=== PATIENT | female | born 1980 | race Caucasian/White ===

== ENCOUNTER 2017-10-22 11:24 | Emergency (ER) | payer OTHER, BC, SELFPAY ==
[2017-10-22 11:25] VITALS: BP 133/87; PULSE 70; RESP 16; TEMP 36.7; O2SAT 100; BMI 30.3
--- NOTE | 2017-10-22 11:27 | RAD_ITS ---
STUDY: X-RAY - RIGHT KNEE REASON FOR EXAM: Female, 37 years old. Pain after a fall TECHNIQUE: 2 view(s) of the knee. COMPARISON: None. FINDINGS: Normal visualized distal femur. Normal visualized proximal tibia and fibula. Normal proximal tibiofibular articulation. Normal medial femorotibial compartment. Normal lateral femorotibial compartment. Normal patellofemoral articulation. The soft tissue structures are unremarkable. RAD/Knee 1 or 2 Views IMPRESSION: Normal x-ray examination of the knee. Electronically Signed: Sharad Weems MD at 11:57 EDT , Service support ,
--- NOTE | 2017-10-22 11:27 | RAD_ITS ---
STUDY: X-RAY - RIGHT WRIST REASON FOR EXAM: Female, 37 years old. Pain after a fall TECHNIQUE: 3 view(s) of the wrist were obtained. COMPARISON: None. FINDINGS: Normal visualized distal radius and ulna. Normal radiocarpal articulation. Normal distal radioulnar articulation. Normal carpal bones. Normal carpal articulations. Normal carpometacarpal articulation of the thumb. Normal second through fifth carpometacarpal articulations. Normal visualized metacarpal bones. The soft tissue structures are unremarkable. RAD/Wrist min 3 Views IMPRESSION: Normal x-ray examination of the wrist. Electronically Signed: Sharad Weems MD at 11:57 EDT , Service support ,
--- NOTE | 2017-10-22 12:11 | ED.DCSUM_ITS ---
- ER Visit Summary Date of Service: 10/22/17 Chief Complaint: Fall History of Present Illness: The patient is a 37 F and a walker when she believes she tripped and fell. She landed on her right knee and her outstretched right palm. She has pain over the thenar eminence of the knee. She has been able to ambulate. She has been able to use the hand fairly normally just was she denies any other injuries Physical Examination: Afebrile vital signs are stable Tender palpation over the thenar eminence of the right hand. She has pain the right patella. Test Results: Wrist and knee were negative for fracture Emergency Department Course and Treatment: Discharged home with supportive care follow-up with corporate care as needed Impression: 1. Right wrist contusion 2. Right knee contusion This note was generated with PowerVision dictation software. It may contain incorrect words, spelling, and punctuation that were not noted in review of the chart prior to signing ED Disposition - Plan for ED Patient: Disposition: Home or Assisted Living Chief Complaint: Upper Extremity Injury Instructions: ED Contusion Lower Ext, ED Contusion Upper Ext Referrals: Care Physician,No Primary [Primary Care Provider] - Corporate,Care [GROUP OF PHYSICIANS] - As Needed
[2017-10-22 12:22] VITALS: BP 130/70; PULSE 75; RESP 14; O2SAT 99
== END 2017-10-22 12:30 | disposition home or self-care (01) ==
LOC: ED 12:20
PROVIDERS: Emergency Provider Emergency Medicine
DX: S60.211A Contusion of right wrist, initial encounter (principal); S80.01XA Contusion of right knee, initial encounter; W01.0XXA Fall on same level from slipping, tripping and stumbling without subsequent striking against object, initial encounter; Y93.9 Activity, unspecified; Y92.89 Other specified places as the place of occurrence of the external cause; Y99.9 Unspecified external cause status
CPT/HCPCS: 73110; 73560; 99282

== ENCOUNTER → 2018-01-29 16:25 | Outpatient (CLI) | payer BC, SELFPAY ==
[2018-01-29 17:48] LABS: Free T3 2.3 pg/mL (2.18-3.98); T4 Free Direct 0.67 ng/dL (0.76-1.46)
== END ==
PROVIDERS: Visit Provider Nurse Practitioner
DX: E07.9 Disorder of thyroid, unspecified (principal)
CPT/HCPCS: 36415; 84439; 84443; 84481

== ENCOUNTER → 2018-04-12 12:08 | Outpatient (CLI) | payer BC, SELFPAY ==
[2018-04-12 13:19] LABS: Thyroid Stim Hormone (TSH) 4.35 uIU/mL (0.358-3.74)
== END ==
PROVIDERS: Visit Provider Nurse Practitioner
DX: E03.9 Hypothyroidism, unspecified (principal)
CPT/HCPCS: 36415; 84443

== ENCOUNTER → 2018-04-19 13:06 | Outpatient (CLI) | payer OTHER, SELFPAY ==
--- NOTE | 2018-04-19 13:09 | RAD_ITS ---
STUDY: X-RAY - LUMBAR SPINE REASON FOR EXAM: Female, 38 years old. Low back pain following injury. TECHNIQUE: 4 view(s) of the lumbar spine were obtained including oblique views. COMPARISON: None FINDINGS: Normal lumbar lordosis. There is no substantial scoliosis. There is a normal alignment of the vertebrae. Normal vertebral bodies and endplates. Normal disc space heights. The soft tissue structures are unremarkable. RAD/L/S Spine Min 4 Views IMPRESSION: Normal x-ray examination of the lumbar spine. Electronically Signed: Richar Wolf MD at 13:59 EDT Tel [phone], Service support ,
== END ==
PROVIDERS: Visit Provider Physician Assistant Surgical
DX: S39.012A Strain of muscle, fascia and tendon of lower back, initial encounter (principal)
CPT/HCPCS: 72110

== ENCOUNTER → 2018-05-31 09:30 | Outpatient (CLI) | payer BC, SELFPAY ==
[2018-05-31 12:01] LABS: Free T3 2.6 pg/mL (2.18-3.98); T4 Free Direct 1.04 ng/dL (0.76-1.46); Thyroid Stim Hormone (TSH) 2.88 uIU/mL (0.358-3.74)
== END ==
PROVIDERS: Referring Provider Nurse Practitioner; Visit Provider Nurse Practitioner
DX: E03.9 Hypothyroidism, unspecified (principal)
CPT/HCPCS: 36415; 84439; 84443; 84481

== ENCOUNTER → 2018-07-17 17:54 | Outpatient (CLI) | payer BC, SELFPAY ==
[2018-07-17 09:05] VITALS: BMI 30.8
[2018-07-22 12:36] LABS: HPV APTIMA, High Risk Negative (Negative)
== END ==
PROVIDERS: Referring Provider Nurse Practitioner Women's Health; Visit Provider Nurse Practitioner Women's Health
DX: Z12.4 Encounter for screening for malignant neoplasm of cervix (principal)
CPT/HCPCS: 87624; 88175; G0145

== ENCOUNTER → 2019-02-21 13:39 | Outpatient (CLI) | payer BC, SELFPAY ==
[2018-07-17 09:05] VITALS: BMI 30.8
[2019-02-21 15:41] LABS: T4 Free Direct 0.86 ng/dL (0.76-1.46); Thyroid Stim Hormone (TSH) 4.81 uIU/mL (0.358-3.74)
== END ==
PROVIDERS: Referring Provider Nurse Practitioner; Visit Provider Nurse Practitioner
DX: E03.9 Hypothyroidism, unspecified (principal)
CPT/HCPCS: 36415; 84439; 84443

== ENCOUNTER → 2019-03-03 15:24 | Outpatient (CLI) | payer BC, SELFPAY ==
[2018-07-17 09:05] VITALS: BMI 30.8
--- NOTE | 2019-03-03 15:29 | US_ITS ---
STUDY: THYROID ULTRASOUND REASON FOR EXAM: Female, 39 years old. Thyroid nodule. Hypothyroidism. TECHNIQUE: Ultrasound evaluation of the thyroid was performed with real-time and static singleton-scale imaging. COMPARISON: None. FINDINGS: RIGHT LOBE: The right lobe of the thyroid gland measures 4.3 x 1.7 x 1.5 cm. There is a heterogeneous echotexture. There are no demonstrated solid, cystic or complex lesions. LEFT LOBE: The left lobe of the thyroid gland measures 4.3 x 1.7 x 1.5 cm. There is a heterogeneous echotexture. There is a 0.4 x 0.3 x 0.2 cm cystic nodule in the lower pole of the left lobe. ISTHMUS: The isthmus measures 0.3 cm. The regional lymph nodes are normal. US/Thyroid IMPRESSION: Heterogeneous thyroid. Subcentimeter cystic nodule in the left lobe. Electronically Signed: Karlos eLahy, at 14:49 EDT Tel , Service support ,
== END ==
PROVIDERS: Referring Provider Nurse Practitioner; Visit Provider Nurse Practitioner
DX: E03.9 Hypothyroidism, unspecified (principal)
CPT/HCPCS: 76536

== ENCOUNTER 2020-04-09 10:09 | Outpatient (RCR) | payer BC, SELFPAY ==
[2020-02-23 09:02] VITALS: BMI 30.8
== END 2020-04-28 23:59 ==
LOC: EMPH 10:09
PROVIDERS: Referring Provider Family Medicine Geriatric Medicine; Visit Provider Family Medicine Geriatric Medicine
DX: Z11.59 Encounter for screening for other viral diseases (principal)
CPT/HCPCS: 87635; U0003

== ENCOUNTER → 2020-05-01 07:26 | Outpatient (CLI) | payer BC, SELFPAY ==
[2020-02-23 09:02] VITALS: BMI 30.8
[2020-05-01 08:27] LABS: T4 Free Direct 0.93 ng/dL (0.76-1.46); Thyroid Stim Hormone (TSH) 5.55 uIU/mL (0.358-3.74)
[2020-05-05 09:39] LABS: Vitamin B12 602 pg/mL (211-911)
== END ==
PROVIDERS: Referring Provider Internal Medicine Endocrinology, Diabetes & Metabolism; Visit Provider Internal Medicine Endocrinology, Diabetes & Metabolism
DX: E03.8 Other specified hypothyroidism (principal); E06.3 Autoimmune thyroiditis; Z78.9 Other specified health status
CPT/HCPCS: 36415; 82607; 84439; 84443

== ENCOUNTER 2020-05-27 17:00 | Outpatient (RCR) | payer BC, SELFPAY ==
[2020-02-23 09:02] VITALS: BMI 30.8
== END 2020-05-29 23:59 ==
LOC: EMPH 17:00
PROVIDERS: Referring Provider Family Medicine Geriatric Medicine; Visit Provider Family Medicine Geriatric Medicine
DX: Z03.818 Encounter for observation for suspected exposure to other biological agents ruled out (principal)
CPT/HCPCS: 87426

== ENCOUNTER → 2020-05-27 18:00 | Outpatient (CLI) | payer BC, SELFPAY ==
[2020-02-23 09:02] VITALS: BMI 30.8
== END ==
PROVIDERS: Visit Provider Family Medicine Geriatric Medicine
DX: Z03.818 Encounter for observation for suspected exposure to other biological agents ruled out (principal)
CPT/HCPCS: 87426

== ENCOUNTER 2020-06-23 13:37 | Outpatient (RCR) | payer BC, SELFPAY ==
[2020-02-23 09:02] VITALS: BMI 30.8
== END 2020-06-28 23:59 ==
LOC: EMPH 13:37
PROVIDERS: Referring Provider Family Medicine Geriatric Medicine; Visit Provider Family Medicine Geriatric Medicine
DX: Z03.818 Encounter for observation for suspected exposure to other biological agents ruled out (principal)
CPT/HCPCS: 87426

== ENCOUNTER 2020-07-21 16:08 | Outpatient (RCR) | payer BC, SELFPAY ==
[2020-02-23 09:02] VITALS: BMI 30.8
== END 2020-07-29 23:59 ==
LOC: EMPH 16:08
PROVIDERS: Referring Provider Family Medicine Geriatric Medicine; Visit Provider Family Medicine Geriatric Medicine
DX: Z03.818 Encounter for observation for suspected exposure to other biological agents ruled out (principal)
CPT/HCPCS: 87426

== ENCOUNTER 2020-08-27 14:15 | Outpatient (RCR) | payer BC, SELFPAY ==
[2020-02-23 09:02] VITALS: BMI 30.8
[2020-08-03 15:13] VITALS: BMI 34.3
== END 2020-08-29 23:59 ==
LOC: EMPH 14:15
PROVIDERS: Referring Provider Family Medicine Geriatric Medicine; Visit Provider Family Medicine Geriatric Medicine
DX: Z03.818 Encounter for observation for suspected exposure to other biological agents ruled out (principal)
CPT/HCPCS: 87426

== ENCOUNTER 2020-11-19 09:19 | Outpatient (RCR) | payer BC, SELFPAY ==
[2020-08-03 15:13] VITALS: BMI 34.3
== END 2020-11-26 23:59 ==
LOC: EMPH 09:19
PROVIDERS: Referring Provider Family Medicine Geriatric Medicine; Visit Provider Family Medicine Geriatric Medicine
DX: Z03.818 Encounter for observation for suspected exposure to other biological agents ruled out (principal)
CPT/HCPCS: 87426

== ENCOUNTER 2020-12-24 08:48 | Outpatient (RCR) | payer BC, SELFPAY ==
[2020-08-03 15:13] VITALS: BMI 34.3
== END 2020-12-27 23:59 ==
LOC: EMPH 08:48
PROVIDERS: Referring Provider Family Medicine Geriatric Medicine; Visit Provider Family Medicine Geriatric Medicine
DX: Z03.818 Encounter for observation for suspected exposure to other biological agents ruled out (principal)
CPT/HCPCS: 87426

== ENCOUNTER → 2021-01-10 10:02 | Outpatient (CLI) | payer BC, SELFPAY ==
[2020-08-03 15:13] VITALS: BMI 34.3
[2021-01-10 11:20] LABS: T4 Free Direct 1.02 ng/dL (0.76-1.46); Thyroid Stim Hormone (TSH) 4.13 uIU/mL (0.358-3.74)
== END ==
PROVIDERS: Referring Provider Internal Medicine Endocrinology, Diabetes & Metabolism; Visit Provider Internal Medicine Endocrinology, Diabetes & Metabolism
DX: E03.8 Other specified hypothyroidism (principal); E06.3 Autoimmune thyroiditis
CPT/HCPCS: 36415; 84439; 84443

== ENCOUNTER → 2021-03-19 07:43 | Outpatient (CLI) | payer BC, SELFPAY ==
[2021-03-19 08:37] LABS: T4 Free Direct 1.11 ng/dL (0.76-1.46); Thyroid Stim Hormone (TSH) 1.34 uIU/mL (0.358-3.74)
== END ==
PROVIDERS: PCP Internal Medicine; Visit Provider Physician Assistant
DX: E03.8 Other specified hypothyroidism (principal); E06.3 Autoimmune thyroiditis
CPT/HCPCS: 36415; 84439; 84443

== ENCOUNTER → 2021-03-23 14:39 | Outpatient (CLI) | payer BC, SELFPAY ==
[2021-03-23 17:02] LABS: Absolute Lymphocyte Count 1.72 X10^3/uL (0.83-4.51); Absolute Neutrophil Count 3.1 X10^3/uL (2.0-7.7); Basophil# 0.04 X10^3/uL; Basophil% 0.7 % (0-1); Eosinophil# 0.52 X10^3/uL; Hematocrit 40.9 % (37-47); Hemoglobin 13.2 g/dL (12.0-15.0); Lymphocyte # 1.72 X10^3/ul (0.83-4.51); Lymphocyte % 29.7 % (19-41); Mean Corp Hgb Conc 32.3 g/dL (32-36); Mean Corpuscular Hgb 29.5 pg (27.0-32.0); Mean Corpuscular Volume 91.5 fL (81-99); Monocyte# 0.45 X10^3/uL; Monocyte% 7.8 % (0-10); NRBC Flagged by Analyzer 0 % (0-5); Neutrophil # 3.06 X10^3/uL (2.7-7.7); Neutrophil % 52.6 % (47-70); Platelet Count 242 K/mm3 (150-450); RBC Distribution Width SD 40.1 fl (35.1-43.9); Red Blood Count 4.47 M/mm3 (4.2-5.4); White Blood Count 5.8 K/mm3 (4.4-11.0)
[2021-03-23 17:17] LABS: ALB/GLOB Ratio 1.4 RATIO (0.9-2.4); AST(SGOT) 14 U/L (15-37); Alanine Aminotransfer ALT/SGPT 24 U/L (13-56); Albumin, Serum 4.1 g/dL (3.2-5.0); Alkaline Phosphatase 93 U/L (45-117); Anion Gap 5 (5-15); BUN 9 mg/dL (7-18); BUN/Creat Ratio 13.9 RATIO (10-20); Calcium,Total 9.1 mg/dL (8.5-10.1); Chloride 105 mmol/L (98-107); Creatinine, Serum 0.65 mg/dL (0.55-1.02); EST Glomerular Filtration Rate 109 mL/min (>60); Est Glom Filt Rate - Afr Amer 131 mL/min (>60); Glucose 95 mg/dL (74-106); Potassium 3.5 mmol/L (3.5-5.1); Protein, Total 7.1 g/dL (6.4-8.2); Sodium Level 140 mmol/L (136-145)
[2021-03-23 17:21] LABS: Vitamin B12 640 pg/mL (211-911)
== END ==
PROVIDERS: PCP Internal Medicine; Referring Provider Internal Medicine; Visit Provider Internal Medicine
DX: F41.9 Anxiety disorder, unspecified (principal); F32.9 Major depressive disorder, single episode, unspecified
CPT/HCPCS: 36415; 80053; 82607; 85025

== ENCOUNTER 2021-03-29 16:45 | Outpatient (RCR) | payer BC, SELFPAY | END 2021-03-29 17:00 | disposition home or self-care (01) | LOC: EMPH 16:45 | PROVIDERS: PCP Internal Medicine; Visit Provider Family Medicine Geriatric Medicine | DX: Z03.818 Encounter for observation for suspected exposure to other biological agents ruled out (principal) | CPT/HCPCS: 87426 ==

== ENCOUNTER 2021-08-29 08:40 | Outpatient (RCR) | payer BC, SELFPAY | END 2021-08-29 23:59 | LOC: EMPH 08:40 | PROVIDERS: PCP Internal Medicine; Visit Provider Family Medicine Geriatric Medicine | DX: Z03.818 Encounter for observation for suspected exposure to other biological agents ruled out (principal) | CPT/HCPCS: 87426 ==

== ENCOUNTER 2021-09-12 14:43 | Outpatient (RCR) | payer BC, SELFPAY | END 2021-09-26 23:59 | disposition home or self-care (01) | LOC: EMPH 14:43 | PROVIDERS: PCP Internal Medicine; Visit Provider Family Medicine Geriatric Medicine | DX: Z03.818 Encounter for observation for suspected exposure to other biological agents ruled out (principal) | CPT/HCPCS: 87426 ==

== ENCOUNTER → 2021-11-17 | Outpatient (CLI) | payer BC, SELFPAY | END | disposition home or self-care (01) | LOC: LABSPEC 11-18 06:44 | PROVIDERS: PCP Internal Medicine; Referring Provider Obstetrics & Gynecology; Visit Provider Obstetrics & Gynecology | DX: N76.4 Abscess of vulva (principal) | CPT/HCPCS: 87070; 87077; 87186; 87205 ==

== ENCOUNTER → 2022-01-12 | Outpatient (CLI) | payer BC, SELFPAY ==
[2022-01-12 16:58] LABS: Thyroid Stim Hormone (TSH) 1.51 uIU/mL (0.358-3.74)
== END | disposition home or self-care (01) ==
LOC: BIMLAB 15:05
PROVIDERS: PCP Internal Medicine; Referring Provider Internal Medicine Endocrinology, Diabetes & Metabolism; Visit Provider Internal Medicine Endocrinology, Diabetes & Metabolism
DX: E03.8 Other specified hypothyroidism (principal); E06.3 Autoimmune thyroiditis
CPT/HCPCS: 36415; 84439; 84443

== ENCOUNTER → 2022-08-17 | Outpatient (CLI) | payer BC, SELFPAY ==
[2022-08-22 22:08] LABS: HPV APTIMA, High Risk Negative (Negative)
== END | disposition home or self-care (01) ==
LOC: LABSPEC 14:26
PROVIDERS: PCP Internal Medicine; Visit Provider Obstetrics & Gynecology
DX: Z12.4 Encounter for screening for malignant neoplasm of cervix (principal)
CPT/HCPCS: 87624; 88175; G0145

== ENCOUNTER → 2022-12-04 | Outpatient (CLI) | payer BC, SELFPAY ==
--- NOTE | 2022-12-04 14:38 | BI_ITS ---
MAMMOGRAPHY - BILATERAL SCREENING REASON FOR EXAM: Female, 42 years old. Routine annual screening examination. PERTINENT HISTORY: Non-contributory. TECHNIQUE: Digital bilateral breast abida (3D mammographic acquisition) in the CC and MLO projections. 2-D mediolateral oblique (MLO) and craniocaudad (CC) views of both breasts were obtained. CAD: Full Field Digital Mammography with Computer Added Detection was performed. COMPARISON: None. Baseline examination. FINDINGS: Breast Composition: There are scattered areas of fibroglandular density. There are no dominant masses or suspicious calcifications. No other significant abnormalities are identified. BI/SCRN MAMM (CAD)W/ABIDA BILAT IMPRESSION: Negative screening mammogram. Yearly followup mammogram recommended. (A) ASSESSMENT CATEGORY: BIRADS Category 1: Negative. A letter regarding these results will be sent to the patient by the facility within 30 days. Approximately 10% of breast cancers are not detected by mammography. A normal mammogram should not delay biopsy of a clinically suspicious abnormality. [id number] Electronically Signed: Richar Wolf MD at 15:38 EDT ,
== END | disposition home or self-care (01) ==
LOC: OPBI 14:36
PROVIDERS: PCP Internal Medicine; Referring Provider Obstetrics & Gynecology; Visit Provider Obstetrics & Gynecology
DX: Z12.31 Encounter for screening mammogram for malignant neoplasm of breast (principal)
CPT/HCPCS: 77063; 77067

== ENCOUNTER → 2023-01-04 | Outpatient (CLI) | payer BC, SELFPAY ==
[2023-01-04 12:29] LABS: Absolute Lymphocyte Count 1.36 X10^3/uL (0.83-4.51); Absolute Neutrophil Count 1.9 X10^3/uL (2.0-7.7); Basophil# 0.04 X10^3/uL; Eosinophil# 0.44 X10^3/uL; Eosinophils% 10.7 % (0-5); Hematocrit 43.4 % (37-47); Hemoglobin 13.7 g/dL (12.0-15.0); Lymphocyte # 1.36 X10^3/ul (0.83-4.51); Lymphocyte % 32.9 % (19-41); Mean Corp Hgb Conc 31.6 g/dL (32-36); Mean Corpuscular Hgb 29.6 pg (27.0-32.0); Mean Corpuscular Volume 93.7 fL (81-99); Mean Platelet Vol. 12.2 fl (6.2-12.0); Monocyte# 0.34 X10^3/uL; Monocyte% 8.2 % (0-10); NRBC Flagged by Analyzer 0 % (0-5); Neutrophil # 1.94 X10^3/uL (2.7-7.7); Platelet Count 240 K/mm3 (150-450); RBC Distribution Width CV 12.3 % (11.6-14.6); RBC Distribution Width SD 42.5 fl (35.1-43.9); Red Blood Count 4.63 M/mm3 (4.2-5.4); White Blood Count 4.1 K/mm3 (4.4-11.0)
[2023-01-04 12:54] LABS: Vitamin B12 451 pg/mL (211-911)
[2023-01-04 13:11] LABS: ALB/GLOB Ratio 1.2 RATIO (0.9-2.4); AST(SGOT) 17 U/L (15-37); Alanine Aminotransfer ALT/SGPT 20 U/L (13-56); Alkaline Phosphatase 96 U/L (45-117); Anion Gap 6 (5-15); BUN 8 mg/dL (7-18); BUN/Creat Ratio 10.5 RATIO (10-20); Calcium,Total 9.4 mg/dL (8.5-10.1); Chloride 108 mmol/L (98-107); Cholesterol 224 mg/dL (200); Creatinine, Serum 0.76 mg/dL (0.55-1.02); EST Glomerular Filtration Rate 89 mL/min (>60); Est Glom Filt Rate - Afr Amer 108 mL/min (>60); Globulin 3.2 g/dL (2.2-4.2); Glucose 108 mg/dL (74-106); High Density Lipoprotein 53 mg/dL; Potassium 4.3 mmol/L (3.5-5.1); Protein, Total 7.2 g/dL (6.4-8.2); Sodium Level 140 mmol/L (136-145); T4 Free Direct 0.83 ng/dL (0.76-1.46); Thyroid Stim Hormone (TSH) 9.83 uIU/mL (0.358-3.74); Triglycerides 118 mg/dL; Very Low Density Lipoprotein 24 mg/dL (5-40)
== END | disposition home or self-care (01) ==
LOC: BIMLAB 09:31
PROVIDERS: PCP Internal Medicine; Visit Provider Internal Medicine Endocrinology, Diabetes & Metabolism
DX: E03.8 Other specified hypothyroidism (principal); E06.3 Autoimmune thyroiditis; R20.2 Paresthesia of skin
CPT/HCPCS: 36415; 80053; 80061; 82607; 84439; 84443; 85025

== ENCOUNTER → 2023-04-12 | Outpatient (CLI) | payer BC, SELFPAY ==
[2023-04-12 14:40] LABS: T4 Free Direct 1.09 ng/dL (0.76-1.46); Thyroid Stim Hormone (TSH) 0.34 uIU/mL (0.358-3.74)
== END | disposition home or self-care (01) ==
LOC: LAB 12:01
PROVIDERS: PCP Internal Medicine; Referring Provider Internal Medicine Endocrinology, Diabetes & Metabolism; Visit Provider Internal Medicine Endocrinology, Diabetes & Metabolism
DX: E03.8 Other specified hypothyroidism (principal); E06.3 Autoimmune thyroiditis
CPT/HCPCS: 36415; 84439; 84443

== ENCOUNTER 2023-07-27 16:06 | Emergency (ER) | payer BC, SELFPAY ==
[2023-07-27 16:07] VITALS: BP 141/99; PULSE 78; RESP 14; TEMP 36.8; O2SAT 99; BMI 36.1
--- NOTE | 2023-07-27 16:36 | EDS_ITS ---
HPI History of Present Illness Chief Complaint: Back Informant: patient Narrative Narrative: Patient fell while rollerskating injuring her back and potentially her left shoulder. She states her son fell in front of her and she was trying to avoid him, her skate got caught in the clothing of her son, and then she hyperextended at her back as she was falling, feeling a crack and immediate severe pain, and she states that she thinks her left upper extremity was extended up in the air and then hyperextended back while in that position. She states her shoulder is not really hurting anymore but her back is really burning from the lower thoracic radiating up to the thoracic back in the middle. She has no neck or low back tenderness. She has no numbness radiating around anywhere or into any extremities. She denies having any problems walking, no bowel or bladder dysfunction. She states the back seems to feel worse when she takes a very deep breath but she denies any dyspnea or chest discomfort. [facility] Medical History Angioedema Anxiety Anxiety and depression Autoimmune urticaria Chronic headaches Depression Depression Food allergic skin reaction Hives Hypothyroidism Seasonal allergies Home Medications levothyroxine 112 mcg tablet 112 mcg PO DAILY #90 tabs 01/04/23 [Rx Last Taken Unknown] orphenadrine citrate 100 mg tablet,extended release 100 mg PO Q12H PRN muscle pain #14 tabs 07/27/23 [Rx Last Taken Unknown] tramadol 50 mg tablet 50 mg PO Q6H PRN pain 3 days #12 tabs 07/27/23 [Rx Last Taken Unknown] Allergy/AdvReac Type Severity Reaction Status Date / Time amoxicillin [From Augmentin] Allergy Hives/ Verified 07/27/23 16:07 DIARRHEA clavulanic acid Allergy Hives Verified 07/27/23 16:07 [From Augmentin] sulfamethoxazole Allergy Hives Verified 07/27/23 16:07 [From Bactrim] trimethoprim [From Bactrim] Allergy Hives Verified 07/27/23 16:07 Family History Mother Addisons disease Osteoporosis Hypertension Father Hypertension Grandfather Colon cancer Other Adrenal abnormality CVA (cerebral vascular accident) Cancer Thyroid disorder Social History number of children: 2 current occupational status: employed current occupation: [employer] Smoking Status: Never smoker second hand exposure: No alcohol intake: current alcohol intake frequency: holidays/special occasions only substance use type: does not use what type of physical activity do you participate in: none seatbelt use: always do you feel safe at home: Yes additional social history: Catalino MALDONADO ROS ROS ED Constitutional Constitutional ED: Denies chills or fever(s) Eyes Eyes: Denies change in vision or diplopia ENT ENT ED: Denies ear pain, epistaxis, facial pain or rhinorrhea Cardiovascular Cardiovascular: Denies chest pain or palpitations Respiratory/Chest Respiratory/Chest: Denies cough or dyspnea Gastrointestinal Gastrointestinal: Denies abdominal pain, diarrhea, melena, nausea or vomiting Genitourinary Genitourinary ED: Denies dysuria or hematuria Musculoskeletal Musculoskeletal: Reports back pain and extremity pain; Denies neck pain Integumentary Denies abscess, Abrasions, laceration or rash Neurologic Neurologic: Denies confusion, headache(s), paresthesias or weakness EXAM Physical Exam Const Vital Signs: 07/27/23 16:07 Temperature 98.3 F Temperature Source Temporal Pulse Rate 78 Respiratory Rate 14 Blood Pressure 141/99 H Blood Pressure Mean 113 Pulse Ox 99 Oxygen Delivery Method Room Air Positive well nourished and well developed General Appearance ED: well developed and NAD HEENT Reports nasal mucous membranes and turbinates normal atraumatic Face and Sinus: Negative for facial tenderness Eyes PERRL and EOMs intact bilaterally Neck full ROM and supple General: Negative for tenderness Chest Wall inspection of chest normal and palpation of chest normal Chest: symmetrical chest wall rise; Negative for crepitus or tenderness Resp normal respiratory effort and clear to auscultation bilaterally Resp Narrative: Equal breath sounds bilaterally Percussion: other equal BS bilat Cardio no murmurs Rate: regular rate; Negative for tachycardic Rhythm: regular rhythm GI normal to inspection, nondistended, normoactive bowel sounds, soft to palpation and non-tender Back/Spine Back/Spine Narrative: Normal on inspection. No reproducible tenderness. Patient indicates pain starts at about the T11-12 area and radiates up to about the T3-5 area. There is no rib tenderness throughout the back. There is no splinting with deep inspiration. She has very limited range of motion, exam is performed while the patient is standing, she is apprehensive about moving about the thoracic spine. Cervical Spine: Negative for cervical spine tenderness Thoracic Spine / Upper Back: Negative for thoracic spinal tenderness Lumbar Spine / Lower Back: Negative for lumbar spinal tenderness Extremity normal to inspection and full ROM General Extremety ED: Negative for tenderness Neuro oriented x3, CN's II-XII intact bilaterally, moves all extremities, no focal motor deficits and no sensory deficits noted Bluebell Coma Scale: document GCS findings Spontaneous Obeys Commands Oriented 15 Sensorium / Orientation: awake and alert Psych mental status grossly normal and thought process normal Mood & Affect: tearful Skin no wounds Lesions: no lesions Rashes: no rashes MDM MDM MDM Narrative Medical decision making narrative: Three-view x-ray series of the thoracic spine was obtained after patient was medicated with Toradol, on my interpretation there are no acute fractures or facet dislocations. Radiology was in agreement. Given the patient's severe symptoms, I thought it best to send her for a CT to ensure that there were no other bony explanations for her pain such as transverse process fracture, pedicle fracture, or acute disc space narrowing to suggest an acute disc rupture which is thought to be less likely since she has no neurologic symptoms. This was performed I reviewed the images and the report which I agree with, it is negative for acute bony abnormality. Patient was reassured, likely all myofascial strain. At her request she was given an injection of muscle relaxer Norflex, she said before this after the Toradol she was feeling funny the nurses gave her something to eat or drink and she felt better like maybe her blood sugar was a little low. She is tolerating the Norflex well so I will give her a prescription for that to use as needed as well as some tramadol after we discussed possibilities will be to prescribe her to use as needed at home. Also given a work note for Sunday. Radiography Diagnostic Testing: Clinical Impression(s) from Imaging Studies Thoracic Spine X-Ray 07/27/23 17:10 IMPRESSION: Degenerative changes. No acute osseous abnormalities. Electronically Signed: Adonis Santos DO at 17:41 EST , Thoracic Spine CT 07/27/23 17:31 IMPRESSION: No acute osseous abnormalities. Mild degenerative changes and spinal curvature as above. Electronically Signed: Adonis Weston MicheleDO cheri at 18:07 EST , Discharge Plan Triage Chief Complaint: Back ED Provider: Cortes Robert Dx/Rx/DC Orders Clinical Impression: Acute thoracic myofascial strain Instructions: ED Thoracic Spine Strain Prescriptions: New tramadol 50 mg tablet 50 mg PO Q6H PRN (Reason: pain) 3 Days Qty: 12 0RF orphenadrine citrate 100 mg tablet extended release 100 mg PO Q12H PRN (Reason: muscle pain) Qty: 14 0RF No Action levothyroxine 112 mcg tablet 112 mcg PO DAILY Qty: 90 3RF Stand Alone Forms: ED Work / School Excuse Primary Care Provider: Edgar Kaiser Referrals: Edgar Kaiser MD [Primary Care Provider] - 1 Week if not improving Activity Restrictions/Additional Instructions: May take both prescriptions along with Tylenol and/or ibuprofen if desired/needed. Ice pack or heat to the affected area, whichever feels better is okay to try. Disposition Disposition: Home, Self Care
[2023-07-27] MEDS: Ketorolac 60 MG/2 ML Vial IM (17:09)
--- NOTE | 2023-07-27 17:10 | RAD_ITS ---
EXAM: XR THORACIC SPINE, 2 VIEWS CLINICAL INDICATION: injury pain. TECHNIQUE: Frontal and lateral views of the thoracic spine. COMPARISON: Lumbar spine, 04/19/2018 FINDINGS: VERTEBRAE: Mild multilevel endplate osteophytosis and facet arthrosis. Subtle apex right superior thoracic curvature. Preserved vertebral body height. No fracture. No spondylolisthesis. DISC SPACES: Mild multilevel intervertebral disc height loss. RAD/Thoracic Spine 2 Views IMPRESSION: Degenerative changes. No acute osseous abnormalities. Electronically Signed: Adonis Santos DO at 17:41 EST ,
--- NOTE | 2023-07-27 17:31 | CT_ITS ---
EXAM: CT THORACIC SPINE WITHOUT INTRAVENOUS CONTRAST CLINICAL INDICATION: injury, nml XR TECHNIQUE: Helically acquired images were obtained of the thoracic spine without intravenous contrast. 2D reformats were reviewed. This CT exam was performed using one or more of the following dose reduction techniques: automated exposure control, adjustment of the mA and/or kV according to patient size, and/or use of iterative reconstruction technique. COMPARISON: Thoracic spine radiographs on the same date. FINDINGS: VERTEBRAE: Mild multilevel endplate osteophytosis and mild multilevel facet arthrosis. Subtle apex right superior and subtle apex left midthoracic spinal curvature. No discrete lytic or blastic abnormality. No acute fracture, spondylolysis, or spondylolisthesis. DISCS/SPINAL CANAL/NEURAL FORAMINA: Multilevel intervertebral disc height loss. VASCULATURE: Visualized thoracic aorta is not dilated. LYMPH NODES: No significant abnormality. No retroperitoneal adenopathy. LUNGS AND PLEURAL SPACES: Normal as visualized. No mass. No consolidation or edema. No pleural effusion or thickening. No pneumothorax. CT/Spine Thoracic without Contras IMPRESSION: No acute osseous abnormalities. Mild degenerative changes and spinal curvature as above. Electronically Signed: Adonis Santos DO at 18:07 EST ,
[2023-07-27] MEDS: Orphenadrine 60 MG/2 ML Ampul IM (17:34)
[2023-07-27 18:46] VITALS: RESP 18
== END 2023-07-27 19:05 | disposition home or self-care (01) ==
PROVIDERS: Emergency Provider Emergency Medicine; PCP Internal Medicine; Referring Provider Emergency Medicine; Visit Provider Emergency Medicine
DX: S29.019A Strain of muscle and tendon of unspecified wall of thorax, initial encounter (principal); Y93.51 Activity, roller skating (inline) and skateboarding; E03.9 Hypothyroidism, unspecified; Z79.899 Other long term (current) drug therapy; W03.XXXA Other fall on same level due to collision with another person, initial encounter
CPT/HCPCS: 72070; 72128; 96372; 99283

== ENCOUNTER → 2023-08-20 | Outpatient (CLI) | payer BC, SELFPAY ==
[2023-08-20 12:56] LABS: T3 Total - Triiodothyronine 1.08 ng/mL (0.6-1.81); Vitamin D,25 Hydroxy 51.4 ng/mL
[2023-08-20 13:13] LABS: Cholesterol 234 mg/dL (200); Glucose 105 mg/dL (74-106); High Density Lipoprotein 62 mg/dL; T4 Free Direct 1.19 ng/dL (0.76-1.46); Thyroid Stim Hormone (TSH) 0.24 uIU/mL (0.358-3.74); Triglycerides 98 mg/dL; Very Low Density Lipoprotein 20 mg/dL (5-40)
[2023-08-21 04:07] LABS: Thyroid Peroxidase AB 34 IU/mL (0-34)
== END | disposition home or self-care (01) ==
PROVIDERS: PCP Internal Medicine; Referring Provider Obstetrics & Gynecology; Visit Provider Obstetrics & Gynecology
DX: E03.8 Other specified hypothyroidism (principal); E06.3 Autoimmune thyroiditis; Z13.21 Encounter for screening for nutritional disorder; Z13.220 Encounter for screening for lipoid disorders; Z13.1 Encounter for screening for diabetes mellitus
CPT/HCPCS: 36415; 80061; 82306; 82947; 84439; 84443; 84480; 86376

== ENCOUNTER → 2023-10-15 | Outpatient (CLI) | payer BC, SELFPAY ==
[2023-10-15 18:19] LABS: hCG Titer Quant., Serum < 1 mIU/mL (1-3)
== END | disposition home or self-care (01) ==
LOC: LAB 17:03
PROVIDERS: PCP Internal Medicine; Referring Provider Obstetrics & Gynecology; Visit Provider Obstetrics & Gynecology
DX: N91.2 Amenorrhea, unspecified (principal)
CPT/HCPCS: 36415; 84702

== ENCOUNTER → 2024-01-01 | Outpatient (CLI) | payer BC, SELFPAY ==
[2024-01-01 09:17] LABS: Hemoglobin A1c 5.3 % (3.8-5.6)
[2024-01-01 09:21] LABS: ALB/GLOB Ratio 1.3 RATIO (0.9-2.4); AST(SGOT) 20 U/L (15-37); Alanine Aminotransfer ALT/SGPT 24 U/L (13-56); Albumin, Serum 3.9 g/dL (3.2-5.0); Alkaline Phosphatase 97 U/L (45-117); Anion Gap 4 (5-15); BUN 11 mg/dL (7-18); BUN/Creat Ratio 15.6 RATIO (10-20); Calcium,Total 8.9 mg/dL (8.5-10.1); Chloride 109 mmol/L (98-107); Cholesterol 237 mg/dL (200); Creatinine, Serum 0.71 mg/dL (0.55-1.02); EST Glomerular Filtration Rate 97 mL/min (>60); Est Glom Filt Rate - Afr Amer 117 mL/min (>60); Globulin 2.9 g/dL (2.2-4.2); Glucose 97 mg/dL (74-106); High Density Lipoprotein 58 mg/dL; Protein, Total 6.8 g/dL (6.4-8.2); Sodium Level 140 mmol/L (136-145); T4 Free Direct 0.94 ng/dL (0.76-1.46); Thyroid Stim Hormone (TSH) 0.75 uIU/mL (0.358-3.74); Triglycerides 87 mg/dL; Very Low Density Lipoprotein 17 mg/dL (5-40)
== END | disposition home or self-care (01) ==
LOC: LAB 08:00
PROVIDERS: PCP Internal Medicine; Referring Provider Nurse Practitioner Family; Visit Provider Nurse Practitioner Family
DX: E03.9 Hypothyroidism, unspecified (principal)
CPT/HCPCS: 36415; 80053; 80061; 82306; 83036; 84439; 84443

== ENCOUNTER → 2024-01-02 | Outpatient (CLI) | payer BC, SELFPAY ==
--- NOTE | 2024-01-02 08:12 | BI_ITS ---
MAMMOGRAPHY - BILATERAL SCREENING REASON FOR EXAM: Female, 43 years old. Routine annual screening examination. PERTINENT HISTORY: Non-contributory. TECHNIQUE: Digital bilateral breast abida (3D mammographic acquisition) in the CC and MLO projections. 2-D mediolateral oblique (MLO) and craniocaudad (CC) views of both breasts were obtained. CAD: Full Field Digital Mammography with Computer Added Detection was performed. COMPARISON: Comparison is made with prior study dated December 04, 2022. FINDINGS: Breast Composition: There are scattered areas of fibroglandular density. There are no dominant masses or suspicious calcifications. Stable small benign-appearing bilateral axillary lymph nodes. No other significant abnormalities are identified. There has been no significant change since the prior study. BI/SCRN MAMM (CAD)W/ABIDA BILAT IMPRESSION: Stable bilateral screening mammogram. Yearly follow-up mammogram recommended. (A) ASSESSMENT CATEGORY: BIRADS Category 2: Benign. A letter regarding these results will be sent to the patient by the facility within 30 days. Approximately 10% of breast cancers are not detected by mammography. A normal mammogram should not delay biopsy of a clinically suspicious abnormality. [id number] Electronically Signed: Richar Wolf MD at 9:36 EDT ,
== END | disposition home or self-care (01) ==
LOC: OPBI 08:12
PROVIDERS: PCP Internal Medicine; Referring Provider Obstetrics & Gynecology; Visit Provider Obstetrics & Gynecology
DX: Z12.31 Encounter for screening mammogram for malignant neoplasm of breast (principal)
CPT/HCPCS: 77063; 77067

== ENCOUNTER 2024-08-03 09:02 | Emergency (ER) | payer BC, SELFPAY ==
[2024-08-03 09:03] VITALS: BP 127/80; PULSE 80; RESP 18; TEMP 36.8; O2SAT 100; BMI 33.5
--- NOTE | 2024-08-03 10:17 | ED.VIS.BACK ---
HPI History of Present Illness Chief Complaint: Other, Pain/Inj Detail of Chief Complaint: Atraumatic right-sided neck pain. Informant: patient Onset/Context/Timing Onset: Today and Yesterday Context: Gradual Onset Timing: Continuous Quality: Sharp Location: - (Right-sided neck.) Current Severity: Moderate Maximum Severity: Moderate Worsened by: improves with Movement Narrative Narrative: 44-year-old female atraumatic right-sided neck pain. Said she wants leg ride with her kids the other day. But denies any head or neck injury. Denies any numbness to her arms or legs. No sore throat. No prior neck history or surgery. Said it began giving her problems last night and worse today. She thought she slept on it wrong. Prior similar symptoms: No Recent Illness/Hospitalization: No [facility] Medical History Autoimmune urticaria Angioedema Food allergic skin reaction Anxiety and depression Depression Hypothyroidism Hives Chronic headaches Seasonal allergies Depression Anxiety Home Medications ?Medication ?Instructions ?Recorded ?Last Taken ?Type levothyroxine 50 mcg tablet 50 mcg PO .COMPLEX #190 tabs 01/03/24 Unknown Rx metaxalone 800 mg tablet 800 mg PO TID 7 days #21 tabs 08/03/24 Unknown Rx Allergy/AdvReac Type Severity Reaction Status Date / Time amoxicillin (From Augmentin) Allergy Hives/ Verified 08/03/24 09:03 DIARRHEA clavulanic acid (From Allergy Hives Verified 08/03/24 09:03 Augmentin) sulfamethoxazole (From Allergy Hives Verified 08/03/24 09:03 Bactrim) trimethoprim (From Bactrim) Allergy Hives Verified 08/03/24 09:03 Family History Mother Addisons disease Osteoporosis Hypertension Father Hypertension Grandfather Colon cancer Other Adrenal abnormality CVA (cerebral vascular accident) Cancer Thyroid disorder Social History number of children: 2 current occupational status: employed 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 Denies fever. Constitutional Constitutional ED: Denies chills or fever(s) Eyes Eyes: Denies blurry vision ENT ENT ED: Denies ear pain Cardiovascular Cardiovascular: Denies chest pain Respiratory/Chest Respiratory/Chest: Denies dyspnea Gastrointestinal Gastrointestinal: Denies abdominal pain Genitourinary Genitourinary ED: Denies dysuria or hematuria Musculoskeletal Musculoskeletal: Denies arthralgias or back pain Integumentary Denies abscess or Abrasions Neurologic Neurologic: Denies headache(s) Psychiatric Psychiatric: Denies anxiety or depression Endocrine Endocrinology: Denies cold intolerance Hematologic/Lymphatic Hematologic/Lymphatic: Denies easy bleeding or easy bruising Allergic/Immunologic Allergic/Immunologic ED: Denies mouth swelling or tongue swelling EXAM Physical Exam Narrative Exam Narrative: 44-year-old female vital signs are stable afebrile. No acute distress. H EENT exam posterior pharynx normal. No erythema or exudate. No trouble swallowing or breathing. Right TM normal. Neck no lymphadenopathy. Mild right-sided soft tissue tenderness. No swelling or mass. No redness or rash. C-spine and trachea unremarkable and nontender. More pain with movement of the neck specifically rotation and flexion extension only on the right. Back and spine nontender. Lungs clear. Heart regular rhythm. Abdomen soft nontender. Moving all 4 extremities. Normal strength and sensation. Normal range of motion. Neurologically she is awake and alert. No focal motor deficits. Const Vital Signs: 08/03/24 09:03 08/03/24 09:12 Temperature 98.2 F Temperature Source Oral Pulse Rate 80 Respiratory Rate 18 Respiratory Effort Normal Non-Labored Respiratory Pattern Normal Blood Pressure 127/80 H Blood Pressure Mean 95 Pulse Ox 100 Oxygen Delivery Method Room Air Positive well nourished and well developed; Negative for obese, cachectic, contractures or unkempt General Appearance ED: well developed and NAD; Negative for unkempt, cachectic, contractures or pallor Nutritional Appearance: Negative for cachectic or obese HEENT Reports moist mucous membranes Eyes PERRL and EOMs intact bilaterally Neck no lymphadenopathy, supple and no JVD Resp normal respiratory effort and clear to auscultation bilaterally Cardio regular rate, regular rhythm, S1 normal heart sound, S2 normal heart sound and no murmurs GI normal to inspection, nondistended, normoactive bowel sounds, soft to palpation, non-tender, non-distended and no masses Inspection: Negative for abdominal distention Palpation: Negative for tender, guarding or rebound tenderness present Back/Spine normal to inspection and no thoracic nor lumbar tenderness Back/Spine Narrative: Right-sided paraspinal soft tissue tenderness of the neck. No spine tenderness. Normal range of motion. Cervical Spine: Negative for cervical spine tenderness and paracervical muscle tenderness Extremity normal to inspection and no clubbing, cyanosis or edema Neuro oriented x3 and no sensory deficits noted Sensorium / Orientation: alert; Negative for confused, lethargic or stuporous Motor Exam: strength 5/5 throughout Psych mental status grossly normal Appearance: Negative for unkempt Attitude: No agitated Mood & Affect: Negative for depressed, sad or tearful Skin no rashes or lesions noted and no wounds General Skin Exam: Negative for jaundice or pallor Lesions: No lesion noted Rashes: No rashes noted Trauma: Negative for abrasion, puncture or other Wounds: Negative for wounds noted MDM MDM MDM Narrative Medical decision making narrative: 44-year-old female right-sided paraspinal muscle spasm on her neck. She has had no trauma. She does not need any imaging or labs. Treated with Skelaxin. Ibuprofen and Tylenol. Hot shower warm bath and massage. History & Record Review Discussion w/independent historian: Patient Discharge Plan Triage Chief Complaint: Other, Pain/Inj ED Provider: David Tsang Dx/Rx/DC Orders Clinical Impression: Cervical paraspinal muscle spasm Instructions: ED Muscle Spasm Prescriptions: New metaxalone 800 mg tablet 800 mg PO TID 7 Days Qty: 21 0RF No Action levothyroxine 50 mcg tablet 50 mcg PO .COMPLEX Qty: 190 3RF Rx Instructions: 50 mcg orally 2 daily, 3 on Sunday 2.5 on Sunday; Primary Care Provider: Edgar Kaiser Referrals: Edgar Kaiser MD [Primary Care Provider] - 1 Week if not improving Activity Restrictions/Additional Instructions: Hot shower, warm bath and massage. Motrin for pain and inflammation and Tylenol. Skelaxin 1 pill 3 times a day till gone. This is a muscle relaxant. It will work but it usually takes 3 to 4 days to really kick in. This should progressively get better if not follow-up or return. Print Language: Chilean Disposition Disposition: Home, Self Care
[2024-08-03 10:21] VITALS: BP 137/85; PULSE 76; RESP 15; TEMP 36.4; O2SAT 98
== END 2024-08-03 10:36 | disposition home or self-care (01) ==
LOC: ED 10:27
PROVIDERS: Emergency Provider Emergency Medicine; PCP Internal Medicine; Visit Provider Emergency Medicine
DX: M62.838 Other muscle spasm (principal); E03.9 Hypothyroidism, unspecified; Z79.890 Hormone replacement therapy
CPT/HCPCS: 99282

== ENCOUNTER → 2024-12-05 | Outpatient (CLI) | payer BC, SELFPAY ==
[2024-12-05 15:14] LABS: Cholesterol 250 mg/dL (<=200); Glucose 92 mg/dL (70-99); High Density Lipoprotein 69 mg/dL; Low Density Lipoprotein Calc. 150 mg/dL; Triglycerides 154 mg/dL; Very Low Density Lipoprotein 31 mg/dL (5-40); Vitamin D,25 Hydroxy 65.9 ng/mL (30-100); cholesterol:hdl ratio screen 3.63
[2024-12-07 09:08] LABS: Thyroid Peroxidase AB 30 IU/mL (0-34)
== END | disposition home or self-care (01) ==
LOC: LAB 13:58
PROVIDERS: PCP Internal Medicine; Referring Provider Obstetrics & Gynecology; Visit Provider Obstetrics & Gynecology
DX: E03.8 Other specified hypothyroidism (principal); E06.3 Autoimmune thyroiditis; Z13.220 Encounter for screening for lipoid disorders; Z13.1 Encounter for screening for diabetes mellitus; Z13.29 Encounter for screening for other suspected endocrine disorder
CPT/HCPCS: 36415; 80061; 82306; 82947; 84443; 86376

== ENCOUNTER → 2025-01-01 | Outpatient (CLI) | payer BC, SELFPAY ==
[2025-01-01 15:43] LABS: Absolute Lymphocyte Count 1.45 X10^3/uL (0.83-4.51); Absolute Neutrophil Count 2.7 X10^3/uL (2.0-7.7); Basophil# 0.05 X10^3/uL; Eosinophil# 0.43 X10^3/uL; Eosinophils% 8.4 % (0-5); Hematocrit 42.3 % (37-47); Hemoglobin 14.2 g/dL (12.0-15.0); Lymphocyte # 1.45 X10^3/ul (0.83-4.51); Lymphocyte % 28.4 % (19-41); Mean Corp Hgb Conc 33.6 g/dL (32-36); Mean Corpuscular Volume 89.2 fL (81-99); Mean Platelet Vol. 11.9 fl (6.2-12.0); Monocyte# 0.45 X10^3/uL; Monocyte% 8.8 % (0-10); NRBC Flagged by Analyzer 0 % (0-5); Neutrophil # 2.71 X10^3/uL (2.7-7.7); Neutrophil % 53.2 % (47-70); Platelet Count 253 K/mm3 (150-450); RBC Distribution Width CV 12.1 % (11.6-14.6); RBC Distribution Width SD 39.8 fl (35.1-43.9); Red Blood Count 4.74 M/mm3 (4.2-5.4); White Blood Count 5.1 K/mm3 (4.4-11.0)
[2025-01-01 16:17] LABS: AST(SGOT) 21 U/L (<=31); Alanine Aminotransfer ALT/SGPT 13 U/L (<=34); Albumin, Serum 4.7 g/dL (3.5-5.0); Alkaline Phosphatase 99 U/L (35-104); Anion Gap 13 (5-15); BUN 9 mg/dL (4-19); BUN/Creat Ratio 12.8 RATIO (10-20); Calcium,Total 9.6 mg/dL (7.6-11.0); Carbon Dioxide 22.3 mmol/L (21.0-32.0); Chloride 104 mmol/L (98-108); Creatinine, Serum 0.72 mg/dL (0.70-1.20); EST Glomerular Filtration Rate 107 (>60); Estradiol 52.7 pg/mL; Ferritin 58 ng/mL (22-378); Follicle Stimulating Hormone 9.2 mIU/mL; Globulin 2.4 g/dL (2.2-4.2); Glucose 106 mg/dL (70-99); Luteinizing Hormone 5.9 mIU/mL; Protein, Total 7.1 g/dL (5.9-8.4); Sodium Level 139 mmol/L (133-145); Total Bilirubin 0.44 mg/dL (0.00-1.30); Vitamin B12 827 pg/mL (180-914)
== END | disposition home or self-care (01) ==
LOC: BIMLAB 11:47
PROVIDERS: PCP Internal Medicine; Referring Provider Internal Medicine Endocrinology, Diabetes & Metabolism; Visit Provider Internal Medicine Endocrinology, Diabetes & Metabolism
DX: N91.2 Amenorrhea, unspecified (principal); E03.8 Other specified hypothyroidism; E06.3 Autoimmune thyroiditis
CPT/HCPCS: 36415; 80053; 82607; 82670; 82728; 83001; 83002; 85025

== ENCOUNTER → 2025-01-07 | Outpatient (CLI) | payer BC, SELFPAY ==
--- NOTE | 2025-01-07 14:46 | BI_ITS ---
EXAM: SCRN MAMM (CAD)W/ABIDA BILAT 01/07/2025 CLINICAL HISTORY: F, Age 44 y/o , SCREENING FOR MALIGNANT NEOPLASM OF THE BREAST. TECHNIQUE: Bilateral screening digital breast tomosynthesis with 2D and 3D images. Computer aided detection. COMPARISON: Prior exam(s) dated 01/02/2024, 12/04/2022. FINDINGS: TISSUE DENSITY: The breast tissue is composed of scattered area of fibroglandular density. Bilateral Breast Mammographic Findings: No significant masses, calcifications or other abnormalities are identified. BI/SCRN MAMM (CAD)W/ABIDA BILAT IMPRESSION: Right Breast: BIRADS 1 NEGATIVE. Left Breast: BIRADS 1 NEGATIVE. OVERALL FINAL ASSESSMENT: BIRADS 1 NEGATIVE. RECOMMENDATION: Routine annual follow-up in 1 Year A letter with findings and recommendations will be mailed to the patient. Reading Location: [id number]
== END | disposition home or self-care (01) ==
LOC: OPBI 14:45
PROVIDERS: PCP Internal Medicine; Referring Provider Obstetrics & Gynecology; Visit Provider Obstetrics & Gynecology
DX: Z12.31 Encounter for screening mammogram for malignant neoplasm of breast (principal); E03.8 Other specified hypothyroidism; E06.3 Autoimmune thyroiditis
CPT/HCPCS: 77063; 77067

== ENCOUNTER → 2025-02-09 | Outpatient (CLI) | payer BC, SELFPAY ==
--- OUTSIDE RECORDS SUMMARY | 2025-02-09 21:21 | XMS RPT_ITS | CCD ---
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 Kaitlin Rader Attending Provider 1( 30) Care Physician, No Primary Referring Provider Un available Dr. Parmjit Kaiser Attending Provider Dr. Parmjit Kaiser Attending Provider MD Edgar Kaiser Primary Care Provider Thaliava MD Edgar Selby Primary Care Provider Unava MD Edgar Selby Referring Provider Unavaila Dr. Dayana Vazquez Attending Provider [phone] Dr. Kaitlin Vang Attending Provider 1( 30) MD dEgar Contreras Primary Care Provider U navailable MD Edgar Contreras Referring Provider Unav Dr. Kaitlin Merchant Attending Provider 1( 30) MD Edgar Contreras Referring Provider Unav ailDr. Parmjit Hu Attending Provider Dr. Edgar Kaiser Primary Care Provider 1([phone]) Dr. Edgar Kaiser Primary Care Provider [phone] Dr. Edgar Kaiser Referring Provider [phone])2 Dr. Dayana Virk Attending Provider [phone] MD Edgar Contreras Referring Provider Unav ailDr. Kaitlin Carty Attending Provider 1(3 30) Job, Dr. Hernández Primary Care Provider 1(33 0) Dr. Edgar Kaiser Referring Provider [phone])2 Dossi, Dr. Anne Attending Provider 1(330)- MD Edgar Contreras Referring Provider Unav ailable Fredi Cramer, Dr. Madrigal Attending Provider 1(3 30) Job FIGUEREDO, Dr. Hernández Primary Care Provider Job FIGUEREDO, Dr. Hernández Referring Provider 1(33 0) Dossi STEPHANIE, Dr. Anne Attending Provider 1(330) Fredi Cramer DO, Dr. Madrigal Attending Provider Fredi Cramer DO, Dr. Madrigal Referring Provider Job FIGUEREDO, Dr. Hernández Primary Care Provider Fredi Cramer DO, Dr. Madrigal Attending Provider Job FIGUEREDO, Dr. Hernández Referring Provider 1(33 0) King BEA, Dr. Parnell Attending Provider King BEA, Dr. Parnell Referring Provider Melita PRINCIPLE SOFTWARE ENGINEER.CANINE SERVICE TEACHER, [facility] Primary Care Provider RADHA HUA Attending Unavailable MELITA RADHA Primary Care Unavailable David Tsang Attending Unavailable Oleghe, Efewongbe Primary Care Unavailable Oleghe, Efewongbe Primary Care Unavailable David, Carlitos Chi Attending Unavailable David, Carlitos Chi Referring Unavailable Oleghe, Efewongbe Primary Care Unavailable David, Carlitos Chi Attending Unavailable David, Carlitos Chi Referring Unavailable Oleghe, Efewongbe Primary Care Unavailable Melita PATIENT PORTAL REPRESENTATIVE, Radha Attending Unavailable Melita PATIENT PORTAL REPRESENTATIVE, Radha Referring Unavailable Parmjit Kaiser Attending Unavailable Parmjit Kaiser Referring Unavailable Oleghe, Efewongbe Primary Care Unavailable Oleghe, Efewongbe Primary Care Unavailable Kaitlin Vang Attending Unavailabl e VandKaitlin Christensen Referring Unavailabl e Oleghe, Efewongbe Primary Care Unavailable Kaitlin Vang Attending UnavailKaitlin Glasgow Referring Unavailabl Karlos Wasserman Attending Unavailable Oleghe, Efewongbe Primary Care Unavailable Oleghe, Efewongbe Referring Unavailable Parmjit Kaiser Attending Unavailable Oleghe, Efewongbe Referring Unavailable Oleghe, Efewongbe Primary Care Unavailable Oleghe, Efewongbe Referring Unavailable Oleghe, Efewongbe Primary Care Unavailable Kaitlin Vang Attending Unavailabl e Dayana Virk Attending Unavailable Oleghe, Efewongbe Referring Unavailable Oleghe, Efewongbe Primary Care Unavailable Allergies Allergy Classification Reported Allergen(s) Allergy Type Date of Onset Reaction(s) Facility (1 source) amoxicillin / clavulanate Drug Allergy 7 Diarrhea [facility] Work Phone: (1 source) amoxicillin / clavulanate Drug Allergy 7 vomiting [facility] Work Phone: (2 sources) sulfamethoxazole / trimethoprim Drug Allergy 7 Hives, vomiting [facility] Work Phone: (14 sources) Amoxicillin Drug Allergy 2 Hives/ DIARRHEA [facility] (14 sources) Clavulanate Drug Allergy 2 [facility] (14 sources) Sulfamethoxazole Drug Allergy 2 [facility] (14 sources) Trimethoprim Drug Allergy 2 [facility] (2 sources) Amoxicillin / Clavulanate; Translations: [AMOXICILLIN-POT CLAVULANATE] Drug Allergy 4 Diarrhea [facility] (2 sources) Sulfonamides (Antibiotic); Translations: [SULFA (SULFONAMIDE ANTIBIOTICS)] Drug Allergy 4 [facility] (1 source) Amoxicillin Drug Allergy 5 [facility] (1 source) Clavulanate Drug Allergy 5 [facility] (1 source) Sulfamethoxazole Drug Allergy 5 [facility] (1 source) Trimethoprim Drug Allergy 5 [facility] Medications Current Medications Medication Drug Class(es) Dates Sig (Normalized) Sig (Original) amphetamine aspartate 1.25 mg / amphetamine sulfate 1.25 mg / dextroamphetamine saccharate 1.25 mg / dextroamphetamine sulfate 1.25 mg oral tablet (1 source) Central Nervous System Stimulant Start: End: take 1 tablet by mouth once daily as needed dextroamphetamine-amphe tamine (ADDERALL) 5 mg tablet Indications: Fatigue, unspecified type , Medication management Take 1 tablet by mouth once daily for 30 days. As needed 30 tablet 01/12/2025 02/11/2025 Active cholecalciferol 0.05 mg oral capsule (4 sources) Vitamin D Start: take 1 capsule by mouth once daily Cholecalciferol (Vitamin D3) 50 mcg (2,000 unit) capsule Active 50 ug PO daily September 01, 2024 1:00am medroxyPROGESTERone acetate 10 mg oral tablet (2 sources) Progestin Start: take 1 tablet by mouth once daily Medroxyprogesterone (Provera) 10 mg tablet Active 10 mg PO daily January 01, 2025 12:00am Multivitamin preparation (10 sources) Start: 9 take 1 tablet by mouth once daily Multivitamin Active 1 TABLET PO DAILY July 21, 2019 10:37am Start: 07-21-2019 End: 08-17-2022 take 1 tablet by mouth once daily Multivitamin Discontinued 1 TABLET PO DAILY July 21, 2019 1:00am August 17, 2022 9:57am Start: 07-21-2019 End: 08-17-2022 take 1 tablet by mouth once daily Multivitamin Discontinued 1 TABLET PO DAILY July 21, 2019 12:00am August 17, 2022 8:57am Start: 07-21-2019 take 1 tablet by jarad once daily Multivitamin Active 1 TABLET PO DAILY July 21, 2019 1:00am Exuwtvynvayh-Shw-Ctmkcu No.3 15 (Adrenal Pot Firer) capsule (4 sources) Start: 09-01-2024 Multivitamin-M in-Herbal No.315 (Adrenal Pot Firer) capsule Active NMA PO September 01, 2024 1:00am OTC PRODUCT (2 sources) Start: 01-12-2025 OTC PRODUCT A- drenal 01/12/2025 Active Start: 01-12-2025 OTC PRODUCT D- mulsion 01/12/2025 Active Mango's Wort 300 mg cap (1 source) Start: 01-12-2025 Mango's Wor t 300 mg cap Unsure of dose 01/12/2025 Active Nai's Wort (4 sources) Start: 09-01-2024 take 1 capsule by mouth once daily Mango's Wort 300 mg capsule Active 300 mg PO daily September 01, 2024 1:00am levothyroxine sodium 0.05 mg oral tablet (20 sources) l-Thyroxi ne Start: 01-01-2025 End: 01-01-2025 Levothyroxine 50 mcg tablet Active 50 ug PO .COMPLEX 190 January 01, 2025 10:58am 50 mcg orally 2 daily, 3 on Sunday 2.5 on Sunday; Start: 01-01-2025 End: 01-01-2025 Levothyroxine 50 mcg tablet Discontinued ug PO January 01, 2025 12:00am January 01, 2025 10:57am Start: 01-03-2024 End: 09-01-2024 Levothyroxine 50 mcg tablet Discontinued 50 ug PO .COMPLEX August 12, 2024 9:22am September 01, 2024 2:35pm 50 mcg orally 2 daily, 3 on Sunday 2.5 on Sunday; Start: 01-04-2023 End: 01-03-2024 take 1 tablet by mouth once daily Levothyroxine 112 mcg tablet Discontinued 112 ug PO DAILY January 04, 2023 12:00am January 03, 2024 9:13am Start: 02-23-2020 End: 01-04-2023 take 1 tablet by mouth once daily Levothyroxine 100 mcg tablet Discontinued 100 ug PO DAILY December 06, 2022 12:07pm January 04, 2023 1:36pm Start: 02-04-2018 End: 02-23-2020 take 7.5 tablets by mouth every week Levothyroxine 75 mcg tablet Discontinued 75 ug PO .COMPLEX February 04, 2018 3:24pm February 23, 2020 8:48am 75 mcg PO ; Take 7.5 pills weekly Start: 10-18-2016 End: 02-04-2018 take 1 tablet by mouth once daily Levothyroxine 75 MCG tablet Discontinued 75 ug PO DAILY May 30, 2017 12:00am February 04, 2018 3:24pm End: 12-22-2016 take 1 tablet by mouth once daily SYNTHROID 100 MCG TABS One tablet by mouth daily LEVOTHYROXINE SODIUM [id number] Esau ALEMAN Completed/Discontinued Medications Medication Drug Class(es) Dates Sig (Normalized) Sig (Original) azithromycin 250 mg oral tablet (14 sources) Macrolide Antimicrobial Start: 0 End: 0 take 2-5 tablets by mouth once daily Azithromycin 250 mg tablet Discontinued 0 PO .COMPLEX September 07, 2019 1:00am February 23, 2020 8:48am take 500 mg today (day 1), then 250 mg for 4 days (days 2-5) PO benzonatate 200 mg oral capsule (14 sources) Non-narcotic Antitussive Start: 9 End: 9 take 1 capsule by mouth three times daily as needed for cough Benzonatate 200 mg capsule Discontinued 200 mg PO THREE TIMES A DAY as needed for cough April 06, 2019 12:00am July 21, 2019 10:35am diphenhydrAMINE hydrochloride 25 mg oral capsule (11 sources) Histamine-1 Receptor Antagonist Start: 2 End: 3 take 1 capsule by mouth three times daily as needed Diphenhydramine Hcl (Benadryl) 25 mg capsule Discontinued 25 mg PO THREE TIMES A DAY as needed for allergic reaction April 26, 2022 12:00am August 17, 2022 9:57am doxycycline hyclate 100 mg oral capsule (14 sources) Tetracycline-class Drug Start: 2 End: 2 take 1 capsule by mouth twice daily Doxycycline Hyclate 100 mg capsule Discontinued 100 mg PO TWICE A DAY 14 November 17, 2021 12:00am November 23, 2021 12:00am November 24, 2021 12:04am famotidine 20 mg oral tablet (11 sources) Histamine-2 Receptor Antagonist Start: 2 End: 3 take 1 tablet by mouth twice daily Famotidine 20 mg tablet Discontinued 20 mg PO TWICE A DAY April 26, 2022 12:00am August 17, 2022 9:57am FLUoxetine 20 mg oral capsule (20 sources) Serotonin Reuptake Inhibitor Start: 1 End: 2 take 1 capsule by mouth once daily Fluoxetine 20 mg capsule Discontinued 20 mg PO DAILY February 01, 2021 9:44am August 10, 2021 9:55am metaxalone 800 mg oral tablet (4 sources) Start: 5 End: 5 take 1 tablet by mouth three times daily Metaxalone 800 mg tablet Discontinued 800 mg PO THREE TIMES A DAY 16 02August 03, 2024 1:00am September 01, 2024 2:35pm methylPREDNISolone 4 mg oral tablet (14 sources) Corticosteroid Start: 9 End: 9 take 1 tablet by mouth once Methylprednisolone (Medrol (Wilfred)) 4 mg tablets,dose pack Discontinued 0 PO per package directions April 06, 2019 12:00am July 21, 2019 10:34am PO PER PKG DIR Miscellaneous Medical Supply misc (1 source) Start: 7 End: 5 Miscellaneous Medical Supply misc 1 Each once daily. Support belly band 1 Each 10/06/2016 01/12/2025 Discontinued Multivitamin tablet (4 sources) Start: 9 End: 3 Multivitamin tablet Discontinued 1 {tbl} PO DAILY July 21, 2019 1:00am August 17, 2022 9:57am norethindrone 0.35 mg oral tablet (1 source) Start: 7 End: 5 take 1 tablet by mouth once daily Norethindrone, Contraceptive, (ORTHO MICRONOR) 0.35 mg tablet Take 1 tablet by mouth once daily. 3 Package 4 12/14/2016 01/12/2025 Discontinued 12 hr orphenadrine citrate 100 mg extended release oral tablet (7 sources) Muscle Relaxant Start: 3 End: 4 take 1 tablet by mouth every twelve hours as needed for pain Orphenadrine Citrate 100 mg tablet extended release Discontinued 100 mg PO Q12H as needed for muscle pain July 27, 2023 7:38pm August 20, 2023 12:18pm predniSONE 10 mg oral tablet (11 sources) Start: 2 End: 3 take 4 tablets by mouth once daily, then take 3 tablets by mouth once daily, then take 2 tablets by mouth once daily, then take 1 tablet by mouth once daily Prednisone 10 mg tablet Discontinued 10 mg PO DAILY April 26, 2022 12:00am August 17, 2022 9:57am 4 tablets daily x3 days, then 3 tablets daily x3 days, then 2 tablets daily x3 days, then 1 tablets daily x3 days Aifeozpx-Wq-Rlp-Fe-FA ( VITAMIN) tab (1 source) Start: 6 End: 5 take 1 tablet by mouth once daily Fbkoczve-Pm-Kay-Fe-FA ( VITAMIN) tab Take 1 tablet by mouth once daily. 30 tablet 12 05/08/2016 01/12/2025 Discontinued (Other) PEMYBLTQ-RBU-IK-FA (1 source) take 1 tablet by mouth once daily PRE-DEMARCO FORMULA TABS One tablet by mouth daily WVLFMGSZ-FJX-TT-FA [id number] Esau ALEMAN -FE CBN-FE ASP GLY-FA TABS (1 source) Start: 7 OB COMPLETE PREMIER TABS 1 daily -FE CBN-FE ASP GLY-FA TABS [id number] Dayana Virk DC tobramycin 3 mg/ml ophthalmic solution (14 sources) Aminoglycoside Antibacterial Start: 0 End: 0 take 0.3 drop(s) into the eye(s) every four hours Tobramycin (Tobrex) 0.3 % drops Discontinued 1 NMA OPHTHALMIC Q4H 5 5 September 07, 2019 1:00am September 11, 2019 1:00am September 12, 2019 1:09am Start: 09-07-2019 End: 09-12-2019 take 0.3 drop(s) into the eye(s) every four hours Tobramycin (Tobrex) 0.3 % drops Discontinued 1 DRP OPHTHALMIC Q4H 5 5 September 07, 2019 1:00am September 12, 2019 1:09am traMADol hydrochloride 50 mg oral tablet (7 sources) Opioid Agonist Start: 07-27-2023 End: 08-20-2023 take 1 tablet by mouth every six hours as needed for pain Tramadol 50 mg tablet Discontinued 50 mg PO EVERY 6 HOURS as needed for pain 12 3 July 27, 2023 7:38pm August 20, 2023 12:18pm Vit B Complex 100 Combo No.2 (B-100 Complex) 100 mg tablet extended release (14 sources) Start: 07-21-2019 End: 08-10-2021 Vit B Complex 100 Combo No.2 (B-100 Complex) 100 mg tablet extended release Discontinued TABLET PO July 21, 2019 10:37am August 10, 2021 9:55am Start: 07-21-2019 End: 08-10-2021 Vit B Complex 100 Combo No.2 (B-100 Complex) 100 mg tablet extended release Discontinued {tbl} PO July 21, 2019 1:00am August 10, 2021 9:55am Start: 07-21-2019 End: 08-10-2021 Vit B Complex 100 Combo No.2 (B-100 Complex) 100 mg tablet extended release Discontinued TABLET PO July 21, 2019 12:00am August 10, 2021 8:55am Start: 07-21-2019 End: 08-10-2021 Vit B Complex 100 Combo No.2 (B-100 Complex) 100 mg tablet extended release Discontinued TABLET PO July 21, 2019 1:00am August 10, 2021 9:55am Problems Active Problems Problem Classification Problem Date Documented Da te Episodic/Chronic Allergic reactions (20 sources) Ingestion dermatitis due to food; Translations: [Dermatitis due to ingested food] 04-26-2022 Episodic Anxiety disorders (15 sources) Anxiety disorder; Translations: [Mixed anxiety and depressive disorder] 09-28-2016 Chronic Attention-deficit, conduct, and disruptive behavior disorders (1 source) Attention deficit hyperactivity disorder, combined type; Translations: [Attention-deficit hyperactivity disorder, combined type] 01-12-2025 Chronic Attention-deficit, conduct, and disruptive behavior disorders (1 source) Attention-deficit hyperactivity disorder, combined type; Translations: [ADHD (attention deficit hyperactivity disorder), combined type] Onset: 01-12-2025 Chronic Inflammatory diseases of female pelvic organs (18 sources) Abscess of vulva; Translations: [Abscess of vulva] Episodic Malaise and fatigue (7 sources) Malaise and fatigue; Translations: [Other malaise] Onset: 01-12-2025 01-01-2025 Episodic Menstrual disorders (11 sources) Amenorrhea; Translations: [Amenorrhea, unspecified] Onset: 01-07-2025 10-15-2023 Chronic Comment on above: hcg x1 Mood disorders (16 sources) Depressive disorder; Translations: [Depression] 09-28-2016 Chronic Mood disorders (1 source) Mood disorders; Translations: [Depression, unspecified depression type] Onset: 01-12-2025 Other aftercare (1 source) Patient encounter status; Translations: [Other manager long term care (current) drug therapy] 01-12-2025 Episodic Other aftercare (1 source) Other retirement (current) drug therapy; Translations: [Medication management] Onset: 01-12-2025 Episodic Other bone disease and musculoskeletal deformities (20 sources) Segmental and somatic dysfunction; Translations: [Segmental and somatic dysfunction of lumbar region] Onset: 10-18-2016 11-23-2016 Episodic Other connective tissue disease (4 sources) Spasm of cervical paraspinous muscle; Translations: [Other muscle spasm] 08-11-2024 Episodic Other injuries and conditions due to external causes (11 sources) Angioedema; Translations: [Angioneurotic edema, initial encounter] 04-26-2022 Episodic Other lower respiratory disease (4 sources) Snoring; Translations: [Snoring] 01-01-2025 Episodic Other screening for suspected conditions (not mental disorders or infectious disease) (1 source) Encounter for screening mammogram for malignant neoplasm of breast; Translations: [Encounter for screening mammogram for malignant neoplasm of breast] Onset: 01-14-2025 Episodic Residual codes; unclassified (1 source) Sleep apnea, unspecified; Translations: [Sleep apnea, unspecified] Onset: 02-04-2025 Chronic Residual codes; unclassified (1 source) Hypersomnia, unspecified; Translations: [Hypersomnia, unspecified] Onset: 02-04-2025 Chronic Residual codes; unclassified (14 sources) Vegetarian; Translations: [Other specified health status] 02-23-2020 Episodic Residual codes; unclassified (10 sources) Transfusion of blood product refused for roman catholic reason; Translations: [Procedure and treatment not carried out because of patient's decision for reasons of belief and group pressure] 07-17-2018 Episodic Spondylosis; intervertebral disc disorders; other back problems (20 sources) Dorsalgia, unspecified; Translations: [Backache, unspecified] 07-11-2022 Episodic Sprains and strains (7 sources) Strain of thoracic region; Translations: [Strain of muscle and tendon of unspecified wall of thorax, initial encounter] 07-27-2023 Episodic Thyroid disorders (20 sources) Hypothyroidism; 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] Onset: 01-01-2025 09-28-2016 Chronic Unclassified (1 source) History of headache; Translations: [Personal history of other specified conditions] Onset: 10-18-2016 10-18-2016 Unclassified (1 source) Vaccination for diphtheria, pertussis, and tetanus ; Translations: [Encounter for immunization] Onset: 09-15-2016 09-15-2016 Unclassified (4 sources) Refusal of blood transfusions as patient is Yazidism 07-17-2018 Past or Other Problems Problem Classification Problem Date Documented Da te Episodic/Chronic Other bone disease and musculoskeletal deformities (13 sources) Segmental and somatic dysfunction of cervical region; Translations: [Nonallopathic lesions, cervical region] Onset: 08-20-2024 07-04-2022 Episodic Other bone disease and musculoskeletal deformities (4 sources) Segmental and somatic dysfunction of lumbar region; Translations: [Nonallopathic lesions, lumbar region] Onset: 08-20-2024 07-04-2022 Episodic Other bone disease and musculoskeletal deformities (4 sources) Segmental and somatic dysfunction of pelvic region; Translations: [Nonallopathic lesions, pelvic region] Onset: 08-20-2024 07-04-2022 Episodic Other bone disease and musculoskeletal deformities (13 sources) Segmental and somatic dysfunction of thoracic region; Translations: [Nonallopathic lesions, thoracic region] Onset: 08-20-2024 07-04-2022 Episodic Other bone disease and musculoskeletal deformities (1 source) Segmental and somatic dysfunction of sacral region; Translations: [Segmental and somatic dysfunction of sacral region] Onset: 08-20-2024 Episodic Other connective tissue disease (1 source) Other muscle spasm; Translations: [Other muscle spasm] Onset: 08-28-2024 Episodic Other nutritional; endocrine; and metabolic disorders (1 source) H/O: hypothyroidism; Translations: [Personal history of other endocrine, nutritional and metabolic disease] Onset: 04-27-2016 Resolved: 12-14-2016 12-14-2016 Episodic Other and delivery including normal (1 source) Normal ; Translations: [Encounter for supervision of normal , unspecified, unspecified trimester] Onset: 09-22-2016 Resolved: 12-14-2016 12-14-2016 Episodic Residual codes; unclassified (1 source) H/O: depression; Translations: [Personal history of other complications of , childbirth and the puerperium] Onset: 04-27-2016 Resolved: 12-14-2016 07-26-2021 Episodic Thyroid disorders (1 source) Disorder of thyroid gland; Translations: [Disorder of thyroid, unspecified] Onset: 10-18-2016 10-18-2016 Episodic Unclassified (1 source) Has roman catholic belief; Translations: [Patient is Yazidism] Onset: 04-27-2016 Resolved: 12-14-2016 07-26-2021 Results Test Name Value Interpretation Reference Range Facility OV 01-12-2025 CNOV Office Visit ([facility]) TAQUERIA BRAGG ([id number]) 1980 F Date Time Provider Department 01/12/25 3:40 PM [facility] today, we recorded the following information about you: Pulse Respiration Blood pressure Normal [facility] Breast imaging reportOrdered By: Faith Sandoval on 01-07-2025 Study report [facility] Imaging Services [address] [place], [place] [id number] SCRN MAMM (CAD)W/ABIDA MACKEY MR#: [id number] Acct: [id number] Name: TAQUERIA BRAGG Rep #: [id number] : 1980 F 44 From: Mami Sandoval MD PCP: Dr. Edgar Kaiser MD Status: R EG CLI Study:SCRN MAMM (CAD)W/ABIDA BILAT Date of Exa m: 01/07/25 Exam# [id number] Ordering Dr: Kaitlin Barrera DO EXAM: SCRN MAMM (CAD)W/ABIDA BILAT 01/07/2025 CLINICAL HISTORY: F, Age 44 y/o , SCREENING FOR MALIGNANT NEOPLASM OF THE BREAST. TECHNIQUE: Bilateral screening digital breast tomosynthesis with 2D and 3D images. Computeraided detection. COMPARISON: Prior exam(s) dated 01/02/2024, 12/04/2022. FINDINGS: TISSUE DENSITY: The breast tissue is composed of scattered area of fibroglandular density. Bilateral Breast Mammographic Findings: No significant masses, calcifications or other abnormalities are identified. BI/SCRN MAMM (CAD)W/ABIDA BILAT IMPRESSION: Right Breast: BIRADS 1 NEGATIVE. Left Breast: BIRADS 1 NEGATIVE. OVERALL FINAL ASSESSMENT: BIRADS 1 NEGATIVE. RECOMMENDATION: Routine annual follow-up in 1 Year A letter with findings and recommendations will be mailed to the patient. Reading Location: [facility] CC: Dr. Edgar Kaiser MD; Dr. Kaitlin Vang DO ~ Account Representative: Signed [facility] SCRN MAMM (CAD)W/ABIDA BILATo n 01-07-2025 SCRN MAMM (CAD)W/ABIDA BILAT [facility] Imaging Services [address] [place] [id number] SCRN MAMM (CAD)W/ABIDA BILAT MR#: [id number] Acct: [id number] Name: TAQUERIA BRAGG Rep #: [id number] : 1980 F 44 From: Faith Sandoval MD PCP: Dr. Edgar Kaiser MD Status: REG CLI Study: SCRN MAMM (CAD)W/ABIDA BILAT Date of Exam: 12/28 08/23 Exam# [id number] Ordering Dr: Kaitlin Vang DO EXAM: SCRN MAMM (CAD)W/ABIDA BILAT 01/07/2025 CLINICAL HISTORY: F, Age 44 y/o , SCREENING FOR MALIGNANT NEOPLASM OF THE BREAST. TECHNIQUE: Bilateral screening digital breast tomosynthesis with 2D and 3D images. Computer aided detection. COMPARISON: Prior exam(s) dated 01/02/2024, 12/04/2022. FINDINGS: TISSUE DENSITY: The breast tissue is composed of scattered area of fibroglandular density. Bilateral Breast Mammographic Findings: No significant masses, calcifications or other abnormalities are identified. BI/SCRN MAMM (CAD)W/ABIDA BILAT IMPRESSION: Right Breast: BIRADS 1 NEGATIVE. Left Breast: BIRADS 1 NEGATIVE. OVERALL FINAL ASSESSMENT: BIRADS 1 NEGATIVE. RECOMMENDATION: Routine annual follow-up in 1 Year A letter with findings and recommendations will be mailed to the patient. Reading Location: [facility] CC: Dr. Edgar Kaiser MD; Dr. Kaitlin Vang DO Account Representative: Signed Normal [facility] Absolute lymphocyte countOrd ered By: Parmjit Kaiser on 01-01-2025 Lymphocytes Auto (Unsp spec) [#/Vol] 1.45 10*3/uL 0.83-4.51 [facility] Absolute neutrophil countOrd ered By: Parmjit Kaiser on 01-01-2025 Neutrophils (Bld) [#/Vol] 2.7 10*3/uL 2.0-7.7 [facility] Anion gap in Serum or Plasma Ordered By: Parmjit Kaiser on 01-01-2025 Anion gap [Moles/Vol] 13 mmol/L 5-15 [facility] Automated lymphocyte count a s percentage of total leukocytesOrdered By: Parmjit Kaiser on 01-01-2025 Lymphocytes/100 WBC Auto (Unsp spec) 28.4 % 19-41 [facility] BUN/creatinine ratioOrdered By: Parmjit Kaiser on 01-01-2025 Urea nitrogen/Creatinine [Mass ratio] 12.8 mg/mg 10-20 [facility] Basophil percentageOrdered B y: Parmjit Kaiser on 01-01-2025 Basophils/100 WBC (Bld) 1.0 % 0-1 [facility] Bilirubin, totalOrdered By: Parmjit Kaiser on 01-01-2025 Bilirubin [Mass/Vol] 0.44 mg/dL 0.00-1.30 [facility] CBC W/Diff, Automatedon Absolute Lymph 1.45 X10 3/uL Normal 0.83-4.51 [facility] Comment on above: Performed By: #### L 500.4050, L3300.1750, L100.0100, L503.6550, L3100.5055, L503.0106 #### [facility] [address] [place], [address] Absolute Neut 2.7 X10 3/uL Normal 2.0-7.7 [facility] Comment on above: Performed By: #### L 500.4050, L3300.1750, L100.0100, L503.6550, L3100.5055, L503.0106 #### [facility] [address] [place], [address] Basophils/100 WBC (Bld) 1.0 % Normal 0-1 [facility] Comment on above: Performed By: #### L 500.4050, L3300.1750, L100.0100, L503.6550, L3100.5055, L503.0106 #### [facility] [address] [place], [address] Eosinophils/100 WBC (Bld) 8.4 % High 0-5 [facility] Comment on above: Performed By: #### L 500.4050, L3300.1750, L100.0100, L503.6550, L3100.5055, L503.0106 #### [facility] [address] [place], [address] Erythrocyte distribution width (RBC) [Ratio] 12.1 % Normal 11.6-14.6 [facility] Comment on above: Performed By: #### L 500.4050, L3300.1750, L100.0100, L503.6550, L3100.5055, L503.0106 #### [facility] [address] [place], [address] Hematocrit (Bld) [Volume fraction] 42.3 % Normal 37-47 [facility] Comment on above: Performed By: #### L 500.4050, L3300.1750, L100.0100, L503.6550, L3100.5055, L503.0106 #### [facility] [address] [place], [address] Hemoglobin (Bld) [Mass/Vol] 14.2 g/dL Normal 12.0-15.0 [facility] Comment on above: Performed By: #### L 500.4050, L3300.1750, L100.0100, L503.6550, L3100.5055, L503.0106 #### [facility] [address] [place], [address] IG% 0.200 Normal 0.0-0.9 [facility] Comment on above: Result Comment: IG% - Immature Granulocytes (promyelocytes, myelocytes and metamyelocytes) > 1% indicates that a LEFT SHIFT is Present. Performed By: #### L 500.4050, L3300.1750, L100.0100, L503.6550, L3100.5055, L503.0106 #### [facility] [address] [place], [address] Lymphocytes/100 WBC (Bld) 28.4 % Normal 19-41 [facility] Comment on above: Performed By: #### L 500.4050, L3300.1750, L100.0100, L503.6550, L3100.5055, L503.0106 #### [facility] [address] [place], [address] MCH (RBC) [Entitic mass] 30.0 pg Normal 27.0-32.0 [facility] Comment on above: Performed By: #### L 500.4050, L3300.1750, L100.0100, L503.6550, L3100.5055, L503.0106 #### [facility] [address] [place], [address] MCHC (RBC) [Mass/Vol] 33.6 g/dL Normal 32-36 [facility] Comment on above: Performed By: #### L 500.4050, L3300.1750, L100.0100, L503.6550, L3100.5055, L503.0106 #### [facility] [address] [place], [address] MCV (RBC) [Entitic vol] 89.2 fL Normal 81-99 [facility] Comment on above: Performed By: #### L 500.4050, L3300.1750, L100.0100, L503.6550, L3100.5055, L503.0106 #### [facility] [address] [place], [address] Monocytes/100 WBC (Bld) 8.8 % Normal 0-10 [facility] Comment on above: Performed By: #### L 500.4050, L3300.1750, L100.0100, L503.6550, L3100.5055, L503.0106 #### [facility] [address] [place], [address] Neutrophils/100 WBC (Bld) 53.2 % Normal 47-70 [facility] Comment on above: Performed By: #### L 500.4050, L3300.1750, L100.0100, L503.6550, L3100.5055, L503.0106 #### [facility] [address] [place], [address] Nucleated RBC (Bld) [#/Vol] 0 10*3/uL Normal 0-5 [facility] Comment on above: Performed By: #### L 500.4050, L3300.1750, L100.0100, L503.6550, L3100.5055, L503.0106 #### [facility] [address] [place], [address] Platelet mean volume (Bld) [Entitic vol] 11.9 fL Normal 6.2-12.0 [facility] Comment on above: Performed By: #### L 500.4050, L3300.1750, L100.0100, L503.6550, L3100.5055, L503.0106 #### [facility] [address] [place], [address] Platelets (Bld) [#/Vol] 253 10*3/uL Normal 150-450 [facility] Comment on above: Performed By: #### L 500.4050, L3300.1750, L100.0100, L503.6550, L3100.5055, L503.0106 #### [facility] [address] [place], [address] RBC (Bld) [#/Vol] 4.74 10*6/uL Normal 4.2-5.4 [facility] Comment on above: Performed By: #### L 500.4050, L3300.1750, L100.0100, L503.6550, L3100.5055, L503.0106 #### [facility] [address] [place], [address] RDW SD 39.8 fl Normal 35.1-43.9 [facility] Comment on above: Performed By: #### L 500.4050, L3300.1750, L100.0100, L503.6550, L3100.5055, L503.0106 #### [facility] [address] [place], [address] WBC (Bld) [#/Vol] 5.1 10*3/uL Normal 4.4-11.0 [facility] Comment on above: Performed By: #### L 500.4050, L3300.1750, L100.0100, L503.6550, L3100.5055, L503.0106 #### [facility] [address] [place], [address] Carbon dioxide, total [Moles /volume] in Central venous bloodOrdered By: Parmjit Kaiser on 01-01-2025 CO2 [Moles/Vol] 22.3 mmol/L 21.0-32.0 [facility] Chloride assayOrdered By: Esau Kaiser on 01-01-2025 Chloride [Moles/Vol] 104 mmol/L 98-108 [facility] Comprehensive Metabolic Prof ilon 01-01-2025 Albumin [Mass/Vol] 4.7 g/dL Normal 3.5-5.0 [facility] Comment on above: Performed By: #### L 500.4050, L3300.1750, L100.0100, L503.6550, L3100.5055, L503.0106 #### [facility] [address] [place], [address] Albumin/Globulin [Mass ratio] 2.0 {ratio} Normal 0.9-2.4 [facility] Comment on above: Performed By: #### L 500.4050, L3300.1750, L100.0100, L503.6550, L3100.5055, L503.0106 #### [facility] [address] [place], [address] ALK PHOS 99 U/L Normal 35-104 [facility] Comment on above: Performed By: #### L 500.4050, L3300.1750, L100.0100, L503.6550, L3100.5055, L503.0106 #### [facility] [address] [place], [address] ALT [Catalytic activity/Vol] 13 U/L Normal <=34 [facility] Comment on above: Performed By: #### L 500.4050, L3300.1750, L100.0100, L503.6550, L3100.5055, L503.0106 #### [facility] [address] [place], [address] AST [Catalytic activity/Vol] 21 U/L Normal <=31 [facility] Comment on above: Performed By: #### L 500.4050, L3300.1750, L100.0100, L503.6550, L3100.5055, L503.0106 #### [facility] [address] [place], [address] Bilirubin [Mass/Vol] 0.44 mg/dL Normal 0.00-1.30 [facility] Comment on above: Performed By: #### L 500.4050, L3300.1750, L100.0100, L503.6550, L3100.5055, L503.0106 #### [facility] [address] [place], [address] BUN/CRE 12.8 RATIO Normal 10-20 [facility] Comment on above: Performed By: #### L 500.4050, L3300.1750, L100.0100, L503.6550, L3100.5055, L503.0106 #### [facility] [address] [place], [address] Calcium [Mass/Vol] 9.6 mg/dL Normal 7.6-11.0 [facility] Comment on above: Performed By: #### L 500.4050, L3300.1750, L100.0100, L503.6550, L3100.5055, L503.0106 #### [facility] [address] [place], [address] Chloride [Moles/Vol] 104 mmol/L Normal 98-108 [facility] Comment on above: Performed By: #### L 500.4050, L3300.1750, L100.0100, L503.6550, L3100.5055, L503.0106 #### [facility] [address] [place], [address] CO2 [Moles/Vol] 22.3 mmol/L Normal 21.0-32.0 [facility] Comment on above: Performed By: #### L 500.4050, L3300.1750, L100.0100, L503.6550, L3100.5055, L503.0106 #### [facility] [address] [place], [address] Creatinine [Mass/Vol] 0.72 mg/dL Normal 0.70-1.20 [facility] Comment on above: Performed By: #### L 500.4050, L3300.1750, L100.0100, L503.6550, L3100.5055, L503.0106 #### [facility] [address] [place], [address] GAP 13 Normal 5-15 [facility] Comment on above: Performed By: #### L 500.4050, L3300.1750, L100.0100, L503.6550, L3100.5055, L503.0106 #### [facility] [address] [place], [address] GFR/1.73 sq M.predicted among non-blacks MDRD (S/P/Bld) [Vol rate/Area] 107 mL/min/{1.73_m2} Normal >60 [facility] Comment on above: Result Comment: mL/m in/1.73m2 CKD-EPI Creatinine Equation (2020) Performed By: #### L 500.4050, L3300.1750, L100.0100, L503.6550, L3100.5055, L503.0106 #### [facility] [address] [place], [address] Globulin (S) [Mass/Vol] 2.4 g/dL Normal 2.2-4.2 [facility] Comment on above: Performed By: #### L 500.4050, L3300.1750, L100.0100, L503.6550, L3100.5055, L503.0106 #### [facility] [address] [place], [address] Glucose [Mass/Vol] 106 mg/dL High 70-99 [facility] Comment on above: Performed By: #### L 500.4050, L3300.1750, L100.0100, L503.6550, L3100.5055, L503.0106 #### [facility] [address] [place], [address] Potassium [Moles/Vol] 4.0 mmol/L Normal 3.3-5.1 [facility] Comment on above: Performed By: #### L 500.4050, L3300.1750, L100.0100, L503.6550, L3100.5055, L503.0106 #### [facility] [address] [place], [address] Sodium [Moles/Vol] 139 mmol/L Normal 133-145 [facility] Comment on above: Performed By: #### L 500.4050, L3300.1750, L100.0100, L503.6550, L3100.5055, L503.0106 #### [facility] [address] [place], [address] T PROT 7.1 g/dL Normal 5.9-8.4 [facility] Comment on above: Performed By: #### L 500.4050, L3300.1750, L100.0100, L503.6550, L3100.5055, L503.0106 #### [facility] [address] [place], [address] Urea nitrogen [Mass/Vol] 9 mg/dL Normal 4-19 [facility] Comment on above: Performed By: #### L 500.4050, L3300.1750, L100.0100, L503.6550, L3100.5055, L503.0106 #### [facility] [address] [place], [address] Endocrinology Visit Reporton 01-01-2025 Endocrinology Visit Report [facility] [address] [place] [address] OFFICE VISIT Date of Service: 01/01/25 MR#: [id number] Acct: [id number] Name: TAQUERIA BRAGG Rep #: [id number] : 1980 Provider: Nano Nath Age/Sex: 44/F Location: [facility] Status: Signed Intake Vital Signs 01/03/24 08:37 09/01/24 13:32 01/01/25 08:27 Height 5 ft 5 in 5 ft 5 in 5 ft 5 in Weight: 205 lb 4 oz BMI 34.1 BP 126/78 H Blood Pressure Location Lt brachial Position Sitting Pulse 63 Pulse Source Monitor Pulse Oximetry (%) 98 Oxygen Delivery Method room air Intake Visit Reasons: 1 Y FU Chief Complaint: Thyroid Is patient in pain?: No Allergies amoxicillin (From Augmentin) Allergy (Verified 01/01/25 08:32) Hives/ DIARRHEA clavulanic acid (From Augmentin) Allergy (Verified 01/01/25 08:32) Hives sulfamethoxazole (From Bactrim) Allergy (Verified 01/01/25 08:32) Hives trimethoprim (From Bactrim) Allergy (Verified 01/01/25 08:32) Hives Medications ???Medication ???Instructions ???Recorded ???Confirmed ???Type Mango's wort 300 mg capsule 300 mg PO QDAY 09/01/24 01/01/25 H istory cholecalciferol (vitamin D3) 50 50 mcg PO QDAY 09/01/24 01/01/25 H istory mcg (2,000 unit) capsule multivitamin with mineral-herbal cap PO 09/01/24 01/01/25 History no.315 capsule (Adrenal Pot Firer capsule) levothyroxine 50 mcg tablet 50 mcg PO .COMPLEX #190 tabs 01/0101/01/25 Rx PFSH Medical History (Updated 01/01/25 @ 11:[address] Parmjit Kaiser MD) Snoring Malaise and fatigue Autoimmune urticaria Angioedema Food allergic skin reaction Anxiety and depression Depression Hives Chronic headaches Seasonal allergies Depression Anxiety Family History Mother Addisons disease Osteoporosis Hypertension Father Hypertension Grandfather Colon cancer Other Adrenal abnormality CVA (cerebral vascular accident) Cancer Thyroid disorder Social History number of children: 2 current occupational status: employed 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 Smoking Status: Never smoker second hand exposure: No alcohol intake: current alcohol intake frequency: holidays/special occasions only substance use type: does not use caffeine: Yes what type of physical activity do you participate in: weight training and other details: rowing frequency: 3-4 times per week seatbelt use: always do you feel safe at home: Yes additional social history: Nelly AEP HPI HPI Chief Complaint: Thyroid Details: TAQUERIA BRAGG, is a 44 F who presents to the office today for follow up. 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 She is taking levothyroxine. Her TSH is 0.790 She has had no menses since September. She feels terrible. Weight is down 5 pounds from last year. She reports that her says she is snoring a lot during sleep. She is consuming caffeine. She is cooking a lot of whole food type meals, so is eating well. ROS Const Constitutional: Positive for fatigue, decreased energy, malaise and snoring; No change in appetite Eyes Eyes: No change in vision ENT ENT: No dizziness/vertigo or difficulty swallowing Cardio Cardiology: Positive for shortness of breath; No chest pain at rest, chest pain with exertion or palpitations Musc Musculoskeletal: No abnormal gait, joint pain, numbness or tingling Neuro Neurology: Positive for memory loss (trouble with word aquisition); No abnormal gait, numbness or tingling Psych Psychiatric: No change in appetite, Positive for memory loss (trouble with word aquisition) and No Thoughts of harming yourself/Others Resp Respiratory: Positive for snoring; No cough, chest congestion or shortness of breath Gastro GI: No abdominal pain, constipation, diarrhea or difficulty swallowing Genitourinary-Female : Positive for absent period; No burning urination Skin Skin: No itchy eyes or wounds Endo Endocrine: Positive for fatigue Aller/Imm Allergy/Immunologic: No itchy eyes Exam Const General: cooperative, healthy appearing, comfortable, no acute distress, well developed and not cushingoid Nutritional Appearance: well nourished Orientation: alert, awake and oriented x3 HENMT Head: normal to inspection Ears: hearing grossly normal bilaterally Nose: external nose normal Mouth: oral mucosae normal Eyes General: appearance normal, both eyes and all related structures Alignment and Position: alignment normal Periorbital: periorbital findings normal Eyelids: eyelids normal Conjunctivae: conjunctivae normal Neck Neck: normal visual inspection Neck mass: No Thyroid: thyroid normal (more content not included)... Normal [facility] Eosinophil percentageOrdered By: Parmjit Kaiser on 01-01-2025 Eosinophils/100 WBC (Bld) 8.4 % High 0-5 [facility] Erythrocyte distribution wid th ratioOrdered By: Parmjit Kaiser on 01-01-2025 Erythrocyte distribution width (RBC) [Ratio] 12.1 % 11.6-14.6 [facility] Erythrocyte distribution wid th standard deviationOrdered By: Parmjit Kaiser on 01-01-2025 Erythrocyte distribution width (RBC) [Ratio] 39.8 fl 35.1-43.9 [facility] Estradiolon 01-01-2025 ESTRADIOL 52.7 pg/mL Normal [facility] Comment on above: Result Comment: FEMA LES ADULT FEMALE: Premenopausal: 15-350 pg/mL(E2 levels vary widely through the menstrual cycle) Postmenopausal: <10 pg/mL KISHORE STAGES MEAN AGE REFERENCE RANGES Stage I(>14 days and prepubertal) 7.1 years Undetectable-20 pg/mLL Stage II 10.5 years Undetectable-24 pg/mL Stage III 11.6 years Undetectable-60 pg/mL Stage IV 12.3 years 15-85 pg/mL Stage V 14.5 years 15-350 pg/mL Puberty onset (transition from Kishore stage I to Kishore stage II) occurs for girls at a median age of 10.5 (/- 2) years. There is evidence that it may occur up to 1 year earlier in obese girls and in girls. Progression through Kishore stages is variable. Kishore stage V (adult) should be reached by age 18. Performed By: #### L 500.4050, L3300.1750, L100.0100, L503.6550, L3100.5055, L503.0106 ####[facility] [address] [place], [place], [address] FSH and LHon 01-01-2025 FSH 9.2 mIU/mL Normal [facility] Comment on above: Result Comment: FEMA LE: Follicular: 1.4 - 18.1 mIU/mL Midcycle: 3.4 - 33.4 mIU/mL Luteal: 1.5 - 9.1 mIU/mL Post Menopause: 23.0 - 116.3 mIU/mL MALE: 1.4 - 18.1 mIU/mL Performed By: #### L 500.4050, L3300.1750, L100.0100, L503.6550, L3100.5055, L503.0106 #### [facility] [address] [place], [place], [id number] LH 5.9 mIU/mL Normal [facility] Comment on above: Result Comment: FEMA LE: Follicular: 1.9-12.5 mIU/mL Midcycle: 8.7-76.3 mIU/mL Luteal: 0.5-16.9 mIU/mL Post Menopause: 15.9-54.0 mIU/mL MALE: 20-70 Years: 1.5-9.3 mIU/mL >70 Years: 3.1-34.6 mIU/mL Performed By: #### L 500.4050, L3300.1750, L100.0100, L503.6550, L3100.5055, L503.0106 #### [facility] [address] [place], [address] Ferritinon 01-01-2025 Ferritin [Mass/Vol] 58 ng/mL Normal 22-378 [facility] Comment on above: Performed By: #### L 500.4050, L3300.1750, L100.0100, L503.6550, L3100.5055, L503.0106 #### [facility] [address] [place], [address] Glomerular filtration rate ( GFR) estimation/1.73 sq m using serum, plasma, or whole bOrdered By: Parmjit Kaiser on 01-01-2025 GFR/1.73 sq M.predicted among non-blacks MDRD (S/P/Bld) [Vol rate/Area] 107 mL/min/{1.73_m2} >60 [facility] Comment on above: mL/min/1.73m2 CKD-EP I Creatinine Equation (2020) Hematocrit Auto (Bld) [Volum e fraction]Ordered By: Parmjit Kaiser on 01-01-2025 Hematocrit (Bld) [Volume fraction] 42.3 % 37-47 [facility] Hemoglobin measurementOrdere d By: Parmjit Kaiser on 01-01-2025 Hemoglobin (Bld) [Mass/Vol] 14.2 g/dL 12.0-15.0 [facility] Immature granulocytes/100 WB C Auto (Bld)Ordered By: Parmjit Kaiser on 01-01-2025 Immature granulocytes/100 WBC (Bld) 0.200 % 0.0-0.9 [facility] Comment on above: IG% - Immature Granu locytes (promyelocytes, myelocytes and metamyelocytes) > 1% indicates that a LEFT SHIFT is Present. Laboratory - Chemistry and C hemistry - challengeOrdered By: Parmjit Kaiser on 01-01-2025 AST [Catalytic activity/Vol] 21 U/L <32 [facility] MCV (mean corpuscular volume ) determinationOrdered By: Parmjit Kaiser on 01-01-2025 MCV (RBC) [Entitic vol] 89.2 fL 81-99 [facility] Mean corpuscular hemoglobin (MCH) determinationOrdered By: Parmjit Kaiser on 01-01-2025 MCH (RBC) [Entitic mass] 30.0 pg 27.0-32.0 [facility] Mean corpuscular hemoglobin concentration (MCHC) determinationOrdered By: Parmjit Kaiser on 01-01-2025 MCHC (RBC) [Mass/Vol] 33.6 g/dL 32-36 [facility] Mean platelet volume determi nationOrdered By: Parmjit Kaiser on 01-01-2025 Platelet mean volume (Bld) [Entitic vol] 11.9 fL 6.2-12.0 [facility] Monocyte percentageOrdered B y: Parmjit Kaiser on 01-01-2025 Monocytes/100 WBC (Bld) 8.8 % 0-10 [facility] Neutrophil percentageOrdered By: Parmjit Kaiser on 01-01-2025 Neutrophils/100 WBC (Bld) 53.2 % 47-70 [facility] Nucleated red blood cell per centageOrdered By: Parmjit Kaiser on 01-01-2025 Nucleated RBC/100 WBC (Bld) [Ratio] 0 % 0-5 [facility] Platelet countOrdered By: Esau Kaiser on 01-01-2025 Platelets (Bld) [#/Vol] 253 10*3/uL 150-450 [facility] Potassium measurement (mass/ volume)Ordered By: Parmjit Kaiser on 01-01-2025 Potassium (Unsp spec) [Mass/Vol] 4.0 mmol/L 3.3-5.1 [facility] RBC Auto (Bld) [#/Vol]Ordere d By: Parmjit Kaiser on 01-01-2025 RBC (Bld) [#/Vol] 4.74 10*6/uL 4.2-5.4 [facility] Serum creatinine measurement (mass/volume)Ordered By: Parmjit Kaiser on 01-01-2025 Creatinine [Mass/Vol] 0.72 mg/dL 0.70-1.20 [facility] Serum globulin measurementOr dered By: Parmjit Kaiser on 01-01-2025 Globulin (S) [Mass/Vol] 2.4 g/dL 2.2-4.2 [facility] Serum glucose measurement (m ass/volume)Ordered By: Parmjit Kaiser on 01-01-2025 Glucose [Mass/Vol] 106 mg/dL High 70-99 [facility] Serum or plasma alanine pérez otransferase (ALT) measurementOrdered By: Parmjit Kaiser on 01-01-2025 ALT [Catalytic activity/Vol] 13 U/L <35 [facility] Serum or plasma albumin donna urement (mass/volume)Ordered By: Parmjit Kaiser on 01-01-2025 Albumin [Mass/Vol] 4.7 g/dL 3.5-5.0 [facility] Serum or plasma albumin/glob ulin mass ratioOrdered By: Parmjit Kaiser on 01-01-2025 Albumin/Globulin [Mass ratio] 2.0 {ratio} 0.9-2.4 [facility] Serum or plasma alkaline norma sphatase measurementOrdered By: Parmjit Kaiser on 01-01-2025 ALP [Catalytic activity/Vol] 99 U/L 35-104 [facility] Serum or plasma calcium donna urement (mass/volume)Ordered By: Parmjit Kaiser on 01-01-2025 Calcium [Mass/Vol] 9.6 mg/dL 7.6-11.0 [facility] Serum or plasma estradiol me asurement after follitropin dose (mass/volume)Ordered By: Parmjit Kaiser on 01-01-2025 E2 post dose follitropin [Mass/Vol] 52.7 pg/mL [facility] Comment on above: FEMALES ADULT FEMALE : Premenopausal: 15-350 pg/mL(E2 levels vary widely through the menstrual cycle) Postmenopausal: <10 pg/mL KISHORE STAGES MEAN AGE REFERENCE RANGES Stage I(>14 days and prepubertal) 7.1 years Undetectable-20 pg/mLL Stage II 10.5 years Undetectable-24 pg/mL Stage III 11.6 years Undetectable-60 pg/mL Stage IV 12.3 years 15-85 pg/mL Stage V 14.5 years 15-350 pg/mL Puberty onset (transition from Kishore stage I to Kishore stage II) occurs for girls at a median age of 10.5 (/- 2) years. There is evidence that it may occur up to 1 year earlier in obese girls and in girls.Progression through Kishore stages is variable. Kishore stage V (adult) should be reached by age 18. Serum or plasma ferritin frandy surement (mass/volume)Ordered By: Parmjit Kaiser on 01-01-2025 Ferritin [Mass/Vol] 58 ng/mL 22-378 [facility] Serum or plasma urea nitroge n measurement (mass/volume)Ordered By: Parmjit Kaiser on 01-01-2025 Urea nitrogen [Mass/Vol] 9 mg/dL 4-19 [facility] Sodium levelOrdered By: Parmjit Kaiser on 01-01-2025 Sodium [Moles/Vol] 139 mmol/L 133-145 [facility] Total proteinOrdered By: Pepe Kaiser on 01-01-2025 Protein [Mass/Vol] 7.1 g/dL 5.9-8.4 [facility] Vitamin B12on 01-01-2025 Cobalamin (Vitamin B12) [Mass/Vol] 827 pg/mL Normal 180-914 [facility] Comment on above: Performed By: #### L 500.4050, L3300.1750, L100.0100, L503.6550, L3100.5055, L503.0106 #### [facility] [address] [place], [address] Vitamin B12 ser/plasOrdered By: Parmjit Kaiser on 01-01-2025 Cobalamin (Vitamin B12) [Mass/Vol] 827 pg/mL 180-914 [facility] White blood cell (WBC) count Ordered By: Parmjit Kaiser on 01-01-2025 WBC (Bld) [#/Vol] 5.1 10*3/uL 4.4-11.0 [facility] Thyroid Peroxidase ABon 11-27 THYR PEROX AB 30 IU/mL Normal 0-34 [facility] Comment on above: Result Comment: Perf ormed at: CB - [facility] [address] [id number] Commercial Singer: Madhav Carmona PhD, Phone: [phone] Performed By: #### L 501.9520, L506.1001, L501.0100, L500.4100, L3300.6900 ####[facility] [address] [place], [address] Calculated very low density lipoprotein (VLDL) cholesterol measurementOrdered By: Kaitlin Cramer on 12-05-2024 Calculated very low density lipoprotein (VLDL) cholesterol measurement 31 mg/dL 5-40 [facility] Glucoseon 12-05-2024 Glucose [Mass/Vol] 92 mg/dL Normal 70-99 [facility] Comment on above: Performed By: #### L 501.9520, L506.1001, L501.0100, L500.4100, L3300.6900 ####[facility] [address] [place], [address] LDL calc ser/plasOrdered By: Kaitlin Cramer on 12-05-2024 Cholesterol in LDL [Mass/Vol] 150 mg/dL [facility] Comment on above: Zvbipqrbpu=989-225 m g/dL & Higher Iffq=155 mg/dL or greater Lipid Profileon 12-05-2024 CHOL:HDL 3.63 Normal [facility] Comment on above: Performed By: #### L 501.9520, L506.1001, L501.0100, L500.4100, L3300.6900 ####[facility] [address] [place], [place], [id number] Cholesterol [Mass/Vol] 250 mg/dL High <=200 [facility] Comment on above: Result Comment: Chol esterol level, Desirable <200 mg/dL Borderline high cholesterol 200-239 mg/dL High cholesterol >=240 mg/dL Recommendations of the NCEP Adult Treatment Panel for the following risk-cutoff thresholds for the [place] population. Performed By: #### L 501.9520, L506.1001, L501.0100, L500.4100, L3300.6900 ####[facility] [address] [place], [place], [id number] Cholesterol in HDL [Mass/Vol] 69 mg/dL Normal [facility] Comment on above: Result Comment: Gisselle onal Cholesterol Education Program (NCEP) guidelines: <40 mg/dL: Low HDL-cholesterol (major risk factor for CHD) >= 60 mg/dL: High HDL-cholesterol (negative risk factor for CHD) HDL-cholesterol is affected by a number of factors, e.g. smoking, exercise, hormones, sex and age. Performed By: #### L 501.9520, L506.1001, L501.0100, L500.4100, L3300.6900 ####[facility] [address] [place], [address] Cholesterol in LDL [Mass/Vol] 150 mg/dL Normal [facility] Comment on above: Result Comment: Bord qnlbls=902-169 mg/dL Higher Wlij=231 mg/dL or greater Performed By: #### L 501.9520, L506.1001, L501.0100, L500.4100, L3300.6900 ####[facility] [address] [place], [address] Cholesterol in VLDL [Mass/Vol] 31 mg/dL Normal 5-40 [facility] Comment on above: Performed By: #### L 501.9520, L506.1001, L501.0100, L500.4100, L3300.6900 ####[facility] [address] [place], [address] Triglyceride [Mass/Vol] 154 mg/dL Normal [facility] Comment on above: Result Comment: The drugs N-Acetylcysteine and Metamizole may falsely depress this assay. Normal range: <150 mg/dL Borderline High: 150-199 mg/dL High: 200-499 mg/dL Very High: >500 mg/dL Performed By: #### L 501.9520, L506.1001, L501.0100, L500.4100, L3300.6900 ####[facility] [address] [place], [address] Screening total cholesterol/ high density lipoprotein (HDL) cholesterol ratioOrdered By: Kaitlin Cramer on 12-05-2024 Cholesterol.total/Choles terol in HDL [Mass ratio] 3.63 {ratio} [facility] Serum glucose measurement (m ass/volume)Ordered By: Kaitlin Cramer on 12-05-2024 Glucose [Mass/Vol] 92 mg/dL 70-99 [facility] Serum or plasma cholesterol in HDL measurement (mass/volume)Ordered By: Kaitlin Cramer on 12-05-2024 Cholesterol in HDL [Mass/Vol] 69 mg/dL >40 [facility] Comment on above: National Cholesterol Education Program (NCEP) guidelines:<40 mg/dL: Low HDL-cholesterol (major risk factor for CHD)>= 60 mg/dL: High HDL-cholesterol (negative risk factor for CHD)HDL-cholesterol is affected by a number of factors, e.g. smoking, exercise, hormones, sex and age. Serum or plasma cholesterol measurement (mass/volume)Ordered By: Kaitlin Cramer on 12-05-2024 Cholesterol [Mass/Vol] 250 mg/dL High <201 [facility] Comment on above: Cholesterol level, D esirable <200 mg/dLBorderline high cholesterol 200-239 mg/dLHigh cholesterol >=240 mg/dLRecommendations of the NCEP Adult Treatment Panel for the following risk-cutoff thresholds for the [place] population. Serum or plasma thyroperoxid ase antibody assay (units/volume)Ordered By: Kaitlin Cramer on 12-05-2024 TPO Ab Qn 30 [IU]/mL 0-34 [facility] Comment on above: Performed at: [place] [id number] Director: Madhav Carmona PhD, Phone: [phone] TSH DL <= 0.005 mIU/L QnOrde red By: Kaitlin Cramer on 12-05-2024 TSH Qn 0.790 uIU/mL 0.300-4.200 [facility] Thyroid Stim Hormone (TSH)on 12-05-2024 TSH 0.790 uIU/mL Normal 0.300-4.200 [facility] Comment on above: Performed By: #### L 501.9520, L506.1001, L501.0100, L500.4100, L3300.8240 ####[facility] [address] [place], [address] Triglycerides measurementOrd ered By: Kaitlin Cramer on 12-05-2024 Triglyceride [Mass/Vol] 154 mg/dL <199 [facility] Comment on above: The drugs N-Acetylcy steine and Metamizole may falsely depress this assay. Normal range: <150 mg/dLBorderline High: 150-199 mg/dLHigh: 200-499 mg/dLVery High: >500 mg/dL Vitamin D,25 Hydroxyon 12-05 Vitamin D 25-OH 65.9 ng/mL Normal 30-100 [facility] Comment on above: Result Comment: Carine min D Status Deficiency: <20 ng/mL (50nmol/L) Insufficiency: 20-30 ng/mL (50-75 nmol/L) Sufficiency: 30-100 ng/mL (75-250 nmol/L) Toxicity: >100 ng/mL (>250 nmol/L) Performed By: #### L 501.9520, L506.1001, L501.0100, L500.4100, L3300.6900 ####[facility] [address] [place], [address] Children'S Aide Office Visit Reporton 09-01-2024 Children'S Aide Office Visit Report [facility]'[address], [address] [place] [address] OFFICE VISIT Date of Service: 09/01/24 MR#: [id number] Acct: [id number] Name: TAQUERIA BRAGG Rep #: [id number] : 1980 Provider: Dr. Kaitlin Beasley DO Age/Sex: 44/F [place] [facility] [place]: Signed Intake Vital Signs 08/20/23 11:17 01/03/24 08:37 08/20/24 08:34 09/01/24 13:30 09/01/24 13:32 Height 5 ft 5 in 5 ft 5 in 5 ft 5 in 5 ft 5 in 5 ft 5 in Weight: 198 lb BMI 32.9 BP 123/75 H Intake Visit Reasons: Annual ([employer]) Audio Visual Aide Required: No Is patient in pain?: No Allergies amoxicillin (From Augmentin) Allergy (Verified 09/01/24 13:29) Hives/ DIARRHEA clavulanic acid (From Augmentin) Allergy (Verified 09/01/24 13:29) Hives sulfamethoxazole (From Bactrim) Allergy (Verified 09/01/24 13:29) Hives trimethoprim (From Bactrim) Allergy (Verified 09/01/24 13:29) Hives Medications ???Medication ???Instructions ???Recorded ???Confirmed ???Type Nai's wort 300 mg capsule 300 mg PO QDAY 09/01/24 09/01/24 H istory cholecalciferol (vitamin D3) 50 50 mcg PO QDAY 09/01/24 09/01/24 H istory mcg (2,000 unit) capsule multivitamin with mineral-herbal cap PO 09/01/24 09/01/24 History no.315 capsule (Adrenal Pot Firer capsule) Post menopausal: No Patient : No : No [facility] Medical History Autoimmune urticaria Angioedema Food allergic skin reaction Anxiety and depression Depression Hypothyroidism Hives Chronic headaches Seasonal allergies Depression Anxiety Family History Mother Addisons disease Osteoporosis Hypertension Father Hypertension Grandfather Colon cancer Other Adrenal abnormality CVA (cerebral vascular accident) Cancer Thyroid disorder Social History number of children: 2 current occupational status: employed 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 Smoking Status: Never smoker second hand exposure: No alcohol intake: current alcohol intake frequency: holidays/special occasions only substance use type: does not use caffeine: Yes what type of physical activity do you participate in: weight training and other details: rowing frequency: 3-4 times per week seatbelt use: always do you feel safe at home: Yes additional social history: Nelly MALDONADO History 2 Elective abortions Hx Para 2 Spontaneous abortions Hx # Term Pregnancies 1 Ectopic pregnancies Hx # Pregnancies 1 Multiple births # of living children 2 Past Pregnancies Del. Date Name GA/Weeks Outcome Route Bth Weight Gen Labor Lgth Anesthesia Del Locatn Provider FOB Unknown February 2013 Unknown Faisal 2016 HPI Encounter for routine gynecological examination Details: TAQUERIA BRAGG is a 44 year old who presents for annual exam. just started with aromatherapy. Last PAP: 2022 History of abnormal PAP: no Last mammogram: 01/02/24 History of abnormal mammogram: no Colon cancer screening: start colonoscopy at age 47 Other preventative health care screenings:needs baseline labs. Female Reproductive History Cycle Length: 21-35 Bleeding Duration: 5 Questions: metorrhagia: No, sexually active: Yes, dyspareunia: No and PCB: No Menopausal Symptoms: No hot flashes, No night sweats, No weight change, No mood changes, No difficulty concentrating, No sleep problems and No change in libido ROS Const Constitutional: Reports as per HPI; Denies fatigue, increased appetite, poor appetite, night sweats, weight gain or weight loss Cardio Card: Denies chest pain Resp Resp: Denies cough or dyspnea GI GI: Reports as per HPI; Denies abdominal pain, bloating, constipation, nausea or vomiting : Reports as per HPI and other; Denies difficulty voiding, dysuria, hematuria, hot flashes, nipple discharge, pelvic pain, prolapse symptoms, urinary frequency, urinary incontinence, urinary urgency, vaginal discharge, vaginal dryness, vaginal odor or vaginal pruritus Skin Skin/Breast: Denies changing lesions, breast mass, breast pain, breast skin changes or nipple discharge Psych Psych: Denies anxiety, change in libido, depression or difficulty concentrating Exam Const General: cooperative, healthy appearing, comfortable, no acute distress, well developed and well groomed HENMN Head: normal to inspection and normocephalic Ears: hearing grossly normal bilaterally and external ears normal Nose: external nose normal Face and sinus: normal facial exam Neck Neck: normal visual inspection, full ROM and no lymphadenopathy Thyroid: thyroid normal Chest Chest palpation inspection: normal ins (more content not included)... Normal [facility] Chiropractic Reporton 2024 Chiropractic Report [facility] [place] [address] OFFICE VISIT Date of Service: 08/20/24 MR#: [id number] Acct: [id number] Name: TAQUERIA BRAGG Rep #: [id number] : 1980 Provider: STEPHANIE Jones Age/Sex: 44/F [place] [facility] Status: Signed Intake Vital Signs 08/03/24 09:03 08/20/24 08:34 Height 5 ft 5 in 5 ft 5 in Weight: 202 lb BMI 33.6 BP 118/72 Intake Visit Reasons: REEVAL Chief Complaint: neck and low back pain Allergies amoxicillin (From Augmentin) Allergy (Verified 08/20/24 08:35) Hives/ DIARRHEA clavulanic acid (From Augmentin) Allergy (Verified 08/20/24 08:35) Hives sulfamethoxazole (From Bactrim) Allergy (Verified 08/20/24 08:35) Hives trimethoprim (From Bactrim) Allergy (Verified 08/20/24 08:35) Hives Medications ???Medication ???Instructions ???Recorded ???Confirmed ???Type metaxalone 800 mg tablet 800 mg PO TID 7 days #21 tabs 08/03/24 08/20/24 Rx levothyroxine 50 mcg tablet 50 mcg PO .COMPLEX #190 tabs 08/12/24 08/20/24 Rx PFSH Medical History Autoimmune urticaria Angioedema Food allergic skin reaction Anxiety and depression Depression Hypothyroidism Hives Chronic headaches Seasonal allergies Depression Anxiety Family History Mother Addisons disease Osteoporosis Hypertension Father Hypertension Grandfather Colon cancer Other Adrenal abnormality CVA (cerebral vascular accident) Cancer Thyroid disorder Social History number of children: 2 current occupational status: employed 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 Smoking Status: Never smoker second hand exposure: No alcohol intake: current alcohol intake frequency: holidays/special occasions only substance use type: does not use caffeine: Yes what type of physical activity do you participate in: weight training and other details: rowing frequency: 3-4 times per week seatbelt use: always do you feel safe at home: Yes additional social history: Nelly MALDONADO HPI REEVAL Chief Complaint: neck and low back pain Visit Number: 1 Details: Taqueria is a 44 year old male here for a re-evaluation of back pain. Pt. advises her neck and right low back flared after sledding on Aug.01. She had no specific injury. She states she woke up the next day with neck pain, could not turn her head, it hurt to swallow and she could not blow her nose. She was evaluated in the ED, no imaging, provided Rx meds. She then had 2 acupuncture sessions Aug.05 and and states she has improved. She denies pain and she has regained her ROM. Pt. denies numbness, tingling or radiculopathy but would like her spine checked for alignment. She reports chiropractic adjustments have been helpful in the past. Onset: 08/01/24 Location: neck and low back Duration: intermittent Aggravating or associated factors: ROM Relieving factors: chiro Treatment: accupuncture Pain Quality: aching and dull Exam Musc General: Yes normal posture, normal gait and joint tenderness; No muscle weakness or decreased range of motion Cervical Spine: Yes loss of normal cervical lordosis, Yes cervical muscular tenderness right greater than left diffuse , No pain with cervical ROM, Yes cervical spasm right greater than left diffuse trapezius and paracervical muscles and Yes misalignment misalignment: C2, C6 and C7 Thoracic/Lumber: Yes thoracic and lumbar spine normal to inspection, Yes thoraco-lumbar ROM normal, Yes Lasegue's sign negative, Yes straight leg raise negative bilaterally, No pain with thoraco- lumbar ROM, Yes paraspinal tenderness on the right greater than left (upper thoracic, lumbopelvic), Yes thoraco-lumbar spasm on the right greater than left (trap, QL) and Yes misalignment T3, T4, T5, L3, L4 and L5 Neuro General: patient alert, patient awake, patient oriented x3, normal light touch, pain and propioception and no focal motor deficits Cranial Nerves: CN's II-XI intact bilaterally Cognition: normal cognition Speech: speech normal Gait: normal gait Motor: muscle tone normal throughout Sensory Exam: no sensory deficits noted Ortho Test CERVICAL Compression pain: Negative Distraction pain: relief Fredrick's pain: Negative Valsalvas: Negative Shoulder depression pain: Negative THORACIC LUMBAR Office Procedures Procedures - Chiropractic Procedures Manipulation: Cervical C2 and C6, Lumbar L3 and L5 and Thoracic T3 Manipulation: 3-4 regions Patient Response: positive Assessment and Plan Assessment and Plan (1) Segmental and somatic dysfunction of lumbar region: Status: Acute (2) Segmental and somatic dysfunction of thoracic region: Status: Acute (3) Segme (more content not included)... Normal [facility] Emergency Department Summary on 08-03-2024 Emergency Department Summary [facility] Medical Records Department [address] [place] [address] Emergency Department Summary 08/03/24 MR#: [id number] Acct: [id number] Name: TAQUERIA BRAGG Rep #: [id number] : 1980 44 From: David Tsang MD PCP: Dr. Edgar Kaiser MD Status:PRE ER Location: ED HPI History of Present Illness Chief Complaint: Other, Pain/Inj Detail of Chief Complaint: Atraumatic right-sided neck pain. Informant: patient Onset/Context/Timing Onset: Today and Yesterday Context: Gradual Onset Timing: Continuous Quality: Sharp Location: - (Right-sided neck.) Current Severity: Moderate Maximum Severity: Moderate Worsened by: improves with Movement Narrative Narrative: 44-year-old female atraumatic right-sided neck pain. Said she wants leg ride with her kids the other day. But denies any head or neck injury. Denies any numbness to her arms or legs. No sore throat. No prior neck history or surgery. Said it began giving her problems last night and worse today. She thought she slept on it wrong. Prior similar symptoms: No Recent Illness/Hospitalizat ion: No PFSH PFSH Medical History Autoimmune urticaria Angioedema Food allergic skin reaction Anxiety and depression Depression Hypothyroidism Hives Chronic headaches Seasonal allergies Depression Anxiety Home Medications ???Medication ???Instructions ???Recorded ???Last Taken ???Type levothyroxine 50 mcg tablet 50 mcg PO .COMPLEX #190 tabs 01/03/24 Unknown Rx metaxalone 800 mg tablet 800 mg PO TID 7 days #21 tabs 08/03/24 Unknown Rx Allergy/AdvReac Type Severity Reaction Status Date / Time amoxicillin (From Augmentin) Allergy Hives/ Verified 08/03/24 09:03 DIARRHEA clavulanic acid (From Allergy Hives Verified 08/03/24 09:03 Augmentin) sulfamethoxazole (From Allergy Hives Verified 08/03/24 09:03 Bactrim) trimethoprim (From Bactrim) Allergy Hives Verified 08/03/24 09:03 Family History Mother Addisons disease Osteoporosis Hypertension Father Hypertension Grandfather Colon cancer Other Adrenal abnormality CVA (cerebral vascular accident) Cancer Thyroid disorder Social History number of children: 2 current occupational status: employed 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 Smoking Status: Never smoker second hand exposure: No alcohol intake: current alcohol intake frequency: holidays/special occasions only substance use type: does not use caffeine: Yes what type of physical activity do you participate in: weight training and other details: rowing frequency: 3-4 times per week seatbelt use: always do you feel safe at home: Yes additional social history: Nelly MALDONADO ROS ROS ED ROS Narrative Denies recent illness. Denies fever. Constitutional Constitutional ED: Denies chills or fever(s) Eyes Eyes: Denies blurry vision ENT ENT ED: Denies ear pain Cardiovascular Cardiovascular: Denies chest pain Respiratory/Chest Respiratory/Chest: Denies dyspnea Gastrointestinal Gastrointestinal: Denies abdominal pain Genitourinary Genitourinary ED: Denies dysuria or hematuria Musculoskeletal Musculoskeletal: Denies arthralgias or back pain Integumentary Denies abscess or Abrasions Neurologic Neurologic: Denies headache(s) Psychiatric Psychiatric: Denies anxiety or depression Endocrine Endocrinology: Denies cold intolerance Hematologic/Lymphati c Hematologic/Lymphati c: Denies easy bleeding or easy bruising Allergic/Immunologic Allergic/Immunologic ED: Denies mouth swelling or tongue swelling EXAM Physical Exam Narrative Exam Narrative: 44-year-old female vital signs are stable afebrile. No acute distress. H EENT exam posterior pharynx normal. No erythema or exudate. No trouble swallowing or breathing. Right TM normal. Neck no lymphadenopathy. Mild right-sided soft tissue tenderness. No swelling or mass. No redness or rash. C-spine and trachea unremarkable and nontender. More pain with movement of the neck specifically rotation and flexion extension only on the right. Back and spine nontender. Lungs clear. Heart regular rhythm. Abdomen soft nontender. Moving all 4 extremities. Normal strength and sensation. Normal range of motion. Neurologically she is awake and alert. No focal motor deficits. Const Vital Signs: 08/03/24 09:03 08/03/24 09:12 Temperature 98.2 F Temperature Source Oral Pulse Rate 80 Respiratory Rate 18 Respiratory Effort Normal Non-Labored Respiratory Pattern Normal Blood Pressure 127/80 H Blood Pressure Mean 95 Pulse Ox 100 Oxygen Delivery Method Room Air Positive well nourished and well developed; Negative fo (more content not included)... Normal [facility] COVID 19 AG RAPID (ALEN Calzada)on 06-13-2024 SARS-CoV-2 (COVID-19) RNA SHAAN+probe Ql (Unsp spec) *Negative results from patients with symptom onset beyond five days should be treated as presumptive and confirmed by a molecular assay if clinically necessary. Negative results should not be used as the sole basis for treatment or for patient management. SARS-CoV-2 Ag Resp Ql IA.rapid *Positive results do not differentiate between SARS-CoV and SARS-CoV-2. If differentiation of the specific SARS virus is desired an additional sample and an additional order is required. SARS-CoV-2 Ag Resp Ql IA.rapid * This test has not been FDA cleared or approved; the test has been authorized by FDA under an Emergency Use Authorization (EAU) for use by laboratories certified under CLIA that meet the requirements to perform moderate, high, or waived complexity tests. SARS-CoV-2 Ag Resp Ql IA.rapid Normal Reference Range: Negative SARS-CoV-2 (COVID 19) Negative RAPID METHOD [employer] COVID19 Ag Card Normal [facility] Comment on above: Performed By: #### M 100.505 ####[facility] [address] [place], [address] Office Visit Reporton 2023 Office Visit Report [facility] [address] [place] [address] OFFICE VISIT Date of Service: 02/27/24 MR#: [id number] Acct: [id number] Patient: TAQUERIA BRAGG Rep #: [id number] : 1980 Provider: LOVE Phillip Age/Sex: 44/F [place] [facility] [place] Status: Signed Employer Purchased Covid Test Note: Patient here today for Covid Testing, requested by their Employer. Assessment and Plan Assessment and Plan Orders: Orders POC Cepheid Covid, FluAB, RSV Today Plan Details Goals Barriers: Goals Decrease spasm Decrease pain Improve ROM Correct misalignment 02/27/24 1507 Date Karlos Byrne Signature: Date (if applicable) CC: Normal [facility] Serum or plasma choriogonado tropin detectionOrdered By: Kaitlin Cramer on 10-15-2023 HCG ( test) Ql < 1 mIU/mL <4 [facility] Comment on above: hCG levels with Gest ational AgeGestational Age hCG mIU/mL (IU/L)0.2 - 1 week 5 - 501-2 weeks 50 - 5002-3 weeks 100 - 63066-1 weeks 500 - 226852-7 weeks 1000 - 417772-7 weeks 21992 - 100,0006-8 weeks 90401 - 200,0002-3 months 82636 - 100,000 Basophil percentageOrdered B y: Kaitlin Cramer on 08-20-2023 Cholesterol [Mass/Vol] 234 mg/dL <200 [facility] Comment on above: <200 mg/dL Desirable 200-240 mg/dL Borderline >240 mg/dL High Risk Glucose [Mass/Vol] 105 mg/dL 74-106 [facility] Comment on above: Fasting Glucose resu lt from 100 to 125 mg/dL suggests IMPAIRED HOMEOSTASIS per A.D.A. criteria. Triglyceride [Mass/Vol] 98 mg/dL <199 [facility] Comment on above: The drugs N-Acetylcy steine and Metamizole may falsely depress this assay.Serum Triglycerides Reference Interval Normal <150 mg/dL Borderline high 150 - 199 mg/dL High 200 - 499 mg/dL Very High > or = 500 mg/dL High density lipoprotein (HD L) measurementOrdered By: Kaitlin Cramer on 08-20-2023 Cholesterol in HDL (Body fld) [Mass/Vol] 62 mg/dL >40 [facility] Comment on above: The drugs N-Acetylcy steine and Metamizole may falsely depress this assay. Reference Range HDL <40 mg/dL Low HDL Cholesterol HDL >or= 60 mg/dL High HDL Cholesterol Low density lipoprotein (LDL ) cholesterol measurementOrdered By: Kaitlin Cramer on 08-20-2023 Cholesterol in LDL (Body fld) [Moles/Vol] 152 mg/dL 0-130 [facility] No Panel InformationOrdered By: Kaitlin Cramer on 08-20-2023 Vitamin D 25-Hydroxy 51.4 ng/mL [facility] Comment on above: Vitamin D 25(OH) Sta tus Range Deficiency <20 ng/mL (50nmol/L) Insufficiency 20 - 30 ng/mL (50 - 75 nmol/L) Sufficiency 30 - 100 ng/mL (75 - 250 nmol/L) Toxicity >100 ng/mL (>250 nmol/L) Serum or plasma thyroid stim ulating hormone (TSH) measurement (units/volume)Ordered By: Kaitlin Cramer on 08-20-2023 TSH Qn 0.24 uIU/mL 0.358-3.74 [facility] Serum or plasma thyroperoxid ase antibody assay (units/volume)Ordered By: Kaitlin Cramer on 08-20-2023 TPO Ab Qn 34 [IU]/mL 0-34 [facility] Comment on above: Performed at: [place] [id number] Director: Madhav Carmona PhD, Phone: [phone] Serum or plasma triiodothyro nine measurement by immunoassay (mass/volume)Ordered By: Kaitlin Cramer on 08-20-2023 T3 IA [Mass/Vol] 1.08 ng/mL 0.6-1.81 [facility] Thin prep Papanicolaou smear with manual screeningOrdered By: Kaitlin Cramer on 08-20-2023 Thin prep Papanicolaou smear with manual screening 1.19 ng/dL 0.76-1.46 [facility] Very low density lipoprotein (VLDL) cholesterol measurementOrdered By: Kaitlin Cramer on 08-20-2023 Cholesterol in VLDL Calc [Moles/Vol] 20 mg/dL 5-40 [facility] COVID-19 virus antigen assay Ordered By: Carlitos Hernandez on 05-07-2023 SARS-CoV-2 (COVID-19) Ag IA.rapid Ql (Resp) [facility] COVID-19 virus antigen assay Ordered By: Carlitos Hernandez on 04-16-2023 SARS-CoV-2 (COVID-19) Ag IA.rapid Ql (Resp) [facility] SARS-CoV-2 (COVID-19) Ag IA.rapid Ql (Resp) [facility] Laboratory - Chemistry and C hemistry - challengeOrdered By: Parmjit Kaiser on 04-12-2023 Free T4 [Mass/Vol] 1.09 ng/dL 0.76-1.46 [facility] No Panel InformationOrdered By: Parmjit Kaiser on 04-12-2023 Thyroid Stimulating Hormone (TSH) 0.34 uIU/mL 0.358-3.74 [facility] Absolute lymphocyte countOrd ered By: Parmjit Kaiser on 01-04-2023 Lymphocytes Auto (Unsp spec) [#/Vol] 1.36 10*3/uL 0.83-4.51 [facility] Basophil percentageOrdered B y: Parmjit Kaiser on 01-04-2023 Basophils/100 WBC (Bld) 1.0 % 0-1 [facility] Bilirubin [Mass/Vol] 0.30 mg/dL 0.20-1.00 [facility] Comment on above: For patients on eltr ombopag therapy, use of Dimension Jeannette TBIL is not recommended. Chloride [Moles/Vol] 108 mmol/L 98-107 [facility] Cholesterol [Mass/Vol] 224 mg/dL <200 [facility] Comment on above: <200 mg/dL Desirable 200-240 mg/dL Borderline >240 mg/dL High Risk Eosinophils/100 WBC (Bld) 10.7 % 0-5 [facility] Glucose [Mass/Vol] 108 mg/dL 74-106 [facility] Comment on above: Fasting Glucose resu lt from 100 to 125 mg/dL suggests IMPAIRED HOMEOSTASIS per A.D.A. criteria. Neutrophils (Bld) [#/Vol] 1.9 10*3/uL 2.0-7.7 [facility] Neutrophils/100 WBC (Bld) 47.0 % 47-70 [facility] Potassium [Moles/Vol] 4.3 mmol/L 3.5-5.1 [facility] Protein [Mass/Vol] 7.2 g/dL 6.4-8.2 [facility] Sodium [Moles/Vol] 140 mmol/L 136-145 [facility] Triglyceride [Mass/Vol] 118 mg/dL <199 [facility] Comment on above: The drugs N-Acetylcy steine and Metamizole may falsely depress this assay.Serum Triglycerides Reference Interval Normal <150 mg/dL Borderline high 150 - 199 mg/dL High 200 - 499 mg/dL Very High > or = 500 mg/dL WBC (Bld) [#/Vol] 4.1 10*3/uL 4.4-11.0 [facility] Blood erythrocytes count (nu mber/volume)Ordered By: Parmjit Kaiser on 01-04-2023 RBC (Bld) [#/Vol] 4.63 10*6/uL 4.2-5.4 [facility] Blood hemoglobin measurement (mass/volume)Ordered By: Parmjit Kaiser on 01-04-2023 Hemoglobin (Bld) [Mass/Vol] 13.7 g/dL 12.0-15.0 [facility] Blood lymphocytes/100 leukoc ytesOrdered By: Parmjit Kaiser on 01-04-2023 Lymphocytes/100 WBC (Bld) 32.9 % 19-41 [facility] Blood monocytes/100 leukocyt esOrdered By: Parmjit Kaiser on 01-04-2023 Monocytes/100 WBC (Bld) 8.2 % 0-10 [facility] Blood platelet mean volumeOr dered By: Parmjit Kaiser on 01-04-2023 Platelet mean volume (Bld) [Entitic vol] 12.2 fL 6.2-12.0 [facility] Determination of erythrocyte mean corpuscular volume (MCV)Ordered By: Parmjit Kaiser on 01-04-2023 MCV (RBC) [Entitic vol] 93.7 fL 81-99 [facility] Hematocrit Auto (Bld) [Volum e fraction]Ordered By: Parmjit Kaiser on 01-04-2023 Hematocrit (Bld) [Volume fraction] 43.4 % 37-47 [facility] Laboratory - Chemistry and C hemistry - challengeOrdered By: Parmjit Kaiser on 01-04-2023 ALP [Catalytic activity/Vol] 96 U/L 45-117 [facility] ALT [Catalytic activity/Vol] 20 U/L 13-56 [facility] CO2 [Moles/Vol] 26.0 mmol/L 21.0-32.0 [facility] Cobalamin (Vitamin B12) [Mass/Vol] 451 pg/mL 211-911 [facility] Free T4 [Mass/Vol] 0.83 ng/dL 0.76-1.46 [facility] Globulin (S) [Mass/Vol] 3.2 g/dL 2.2-4.2 [facility] Urea nitrogen/Creatinine [Mass ratio] 10.5 mg/mg 10-20 [facility] Laboratory - Hematology and Cell countsOrdered By: Parmjit Kaiser on 01-04-2023 Erythrocyte distribution width (RBC) [Entitic vol] 42.5 fL 35.1-43.9 [facility] Erythrocyte distribution width (RBC) [Ratio] 12.3 % 11.6-14.6 [facility] Immature granulocytes/100 WBC (Bld) 0.200 % 0.0-0.9 [facility] Comment on above: IG% - Immature Granu locytes (promyelocytes, myelocytes and metamyelocytes) > 1% indicates that a LEFT SHIFT is Present. MCH (RBC) [Entitic mass] 29.6 pg 27.0-32.0 [facility] Nucleated RBC/100 WBC (Bld) [Ratio] 0 % 0-5 [facility] MCHC Auto (RBC) [Mass/Vol]Or dered By: Parmjit Kaiser on 01-04-2023 MCHC (RBC) [Mass/Vol] 31.6 g/dL 32-36 [facility] No Panel InformationOrdered By: Parmjit Kaiser on 01-04-2023 Estimated GFR (MDRD) Amer 108 mL/min >60 [facility] Comment on above: GFR Calc Estimated GFR (MDRD) Non-Af Amer 89 mL/min >60 [facility] Comment on above: Non- GFR Calc Thyroid Stimulating Hormone (TSH) 9.83 uIU/mL 0.358-3.74 [facility] Platelets bldOrdered By: Pepe Kaiser on 01-04-2023 Platelets (Bld) [#/Vol] 240 10*3/uL 150-450 [facility] Serum or plasma albumin donna urement (mass/volume)Ordered By: Parmjit Kaiser on 01-04-2023 Albumin [Mass/Vol] 4.0 g/dL 3.2-5.0 [facility] Serum or plasma albumin/glob ulin mass ratioOrdered By: Parmjit Kaiser on 01-04-2023 Albumin/Globulin [Mass ratio] 1.2 {ratio} 0.9-2.4 [facility] Serum or plasma calcium donna urement (mass/volume)Ordered By: Parmjit Kaiser on 01-04-2023 Calcium [Mass/Vol] 9.4 mg/dL 8.5-10.1 [facility] Serum or plasma cholesterol in HDL measurement (mass/volume)Ordered By: Parmjit Kaiser on 01-04-2023 Cholesterol in HDL [Mass/Vol] 53 mg/dL >40 [facility] Comment on above: The drugs N-Acetylcy steine and Metamizole may falsely depress this assay. Reference Range HDL <40 mg/dL Low HDL Cholesterol HDL >or= 60 mg/dL High HDL Cholesterol Serum or plasma cholesterol in VLDL measurement (mass/volume)Ordered By: Parmjit Kaiser on 01-04-2023 Cholesterol in VLDL [Mass/Vol] 24 mg/dL 5-40 [facility] Serum or plasma creatinine m easurement (mass/volume)Ordered By: Parmjit Kaiser on 01-04-2023 Creatinine [Mass/Vol] 0.76 mg/dL 0.55-1.02 [facility] Comment on above: The validity of the calculated GFR & GFRAA in patients over 70 years has not been determined. Clinical correlation is essential. Serum or plasma low density lipoprotein (LDL) cholesterol measurement (mass/volume)Ordered By: Parmjit Kaiser on 01-04-2023 Cholesterol in LDL [Mass/Vol] 147 mg/dL 0-130 [facility] Serum or plasma urea nitroge n measurement (mass/volume)Ordered By: Parmjit Kaiser on 01-04-2023 Urea nitrogen [Mass/Vol] 8 mg/dL 7-18 [facility] Thin prep Papanicolaou smear with manual screeningOrdered By: Parmjit Kaiser on 01-04-2023 Thin prep Papanicolaou smear with manual screening 17 U/L 15-37 [facility] Thin prep Papanicolaou smear with manual screening 6 5-15 [facility] Cervical or vagninal specime n microscopic examination by cytology stain (reported asOrdered By: Dr. Cramer on 08-17-2022 Cytology report Cyto stain Doc (Cvx/Vag) Comment . [facility] Comment on above: The Pap smear is a s creening test designed to aid in thedetection of premalignant and malignant conditions of theuterine cervix. It is not a diagnostic procedure andshould not be used as the sole means of detecting cervicalcancer. Both false-positive and false-negative reports dooccur. Detection in cervical specim en of any of human papilloma virus (HPV) 16, 18, 31, 33,Ordered By: Dr. Cramer on 08-17-2022 HPV 16+18+31+33+35+39+45+51+ 52+56+58+59+66+68 DNA Probe+sig amp Ql (Cvx) Negative Negative [facility] Comment on above: This nucleic acid am plification test detects fourteen high-risk HPV types (16,18,31,33,35,39,45,51,52,56,58,59,66,68)without differentiation. Laboratory - CytologyOrdered By: Dr. Cramer on 08-17-2022 Electrolysis Needle Operator Cyto stain Nom (Cvx/Vag) [ID] Comment . [facility] Comment on above: Fabiano Santana totechnologist Laboratory - Miscellaneous t estsOrdered By: Dr. Cramer on 08-17-2022 Service comment (Unsp spec) [Interp] Comment . [facility] Comment on above: This liquid based Th inPrep(R) pap test was screened withthe use of an image guided system. Service comment (Unsp spec) [Interp] . . [facility] Liquid-based cerv Pap + CT/G C by SHAAN w reflex to high-risk HPV for ASCUSOrdered By: Dr. Cramer on 08-17-2022 Cytology report Cyto stain.thin prep Doc (Cvx/Vag) Comment . [facility] Comment on above: Criteria not met, HP V Genotype not performed.Performed at: [address], [place] [id number] Director: Shahana Saravia MD, Phone: [phone] at: =G - [facility] [address] [place], [place] [id number] Director: Shahana Saravia MD, Phone: [phone] No Panel InformationOrdered By: Dr. Cramer on 08-17-2022 Pathology report final diagnosis Narrative Comment . [facility] Comment on above: NEGATIVE FOR INTRAEP ITHELIAL LESION OR MALIGNANCY. Laboratory - Chemistry and C hemistry - challengeon 01-12-2022 Free T4 [Mass/Vol] 0.90 ng/dL 0.76-1.46 [facility] Work Phone: No Panel Informationon 01-12 Thyroid Stimulating Hormone (TSH) 1.51 uIU/mL 0.358-3.74 [facility] Work Phone: Bacteria identified Cx Nom ( Wound)on 11-17-2021 Wound Culture Staphylococcus aureus [facility] Work Phone: Gram stain for investigation of transfusion reactionon 11-17-2021 Microscopic observation Gram stain Nom (Unsp spec) [facility] Work Phone: No Panel Informationon 09-12 SARS-CoV-2 Antigen (Rapid) [facility] Work Phone: [facility] Documentation of current medications (procedure) Done Invalid Interpretation Code [facility] Work Phone: Fall risk assessment No Invalid Interpretation Code [facility] Work Phone: Tobacco smoking status NHIS Never Invalid Interpretation Code [facility] Work Phone: Tobacco use HS Never smoker Invalid Interpretation Code [facility] Work Phone: Lab Report: Free T3on 2016 Triiodothyronine (T3) free 3.1 pg/mL Invalid Interpretation Code 2.18-3.98 [facility] Work Phone: Lab Report: T4 Free Directon 12-21-2016 Thyroxine (T4) free 1.20 ng/dL Invalid Interpretation Code 0.76-1.46 [facility] Work Phone: Lab Report: Thyroid Stim Diego jaqueline (TSH)on 12-21-2016 Thyroid stimulating hormone (TSH) 0.17 u[iU]/mL Low 0.358-3.74 [facility] Work Phone: Office Visit: New Patient Co nsult- Hypothyroidismon 09-28-2016 Adolescent depression screening assessment Adolescent depression screening assessment Invalid Interpretation Code [facility] Work Phone: Adult depression screening assessment Adult depression screening assessment Invalid Interpretation Code [facility] Work Phone: Nurse Visit: T-Dap Injection on 05-01-2016 General categories [Interpretation] of Cervical or vaginal smear or scraping by Cyto stain Normal Invalid Interpretation Code [facility] Work Phone: Bacteria identified Cx Nom ( Wound) Wound Culture Staphylococcus aureus [facility] Work Phone: Gram stain for investigation of transfusion reaction Microscopic observation Gram stain Nom (Unsp spec) [facility] Work Phone: Vital Signs Date Time Vital Sign Value Performing Clinician Facility 01-12-2025 15:41-0400 Diastolic blood pressure 82 mm[Hg] Radha Hua PRINCIPLE SOFTWARE ENGINEER.CANINE SERVICE TEACHER Work Phone: [facility] 01-12-2025 15:41-0400 Heart rate 61 /min Radha Hua PRINCIPLE SOFTWARE ENGINEER.CANINE SERVICE TEACHER Work Phone: [facility] 01-12-2025 15:41-0400 Respiratory rate 16 /min Radha Hua PRINCIPLE SOFTWARE ENGINEER.CANINE SERVICE TEACHER Work Phone: [facility] 01-12-2025 15:41-0400 SaO2% (BldA) [Mass fraction] 100 % Radha Hua PRINCIPLE SOFTWARE ENGINEER.CANINE SERVICE TEACHER Work Phone: [facility] 01-12-2025 15:41-0400 Systolic blood pressure 128 mm[Hg] Radha Hua PRINCIPLE SOFTWARE ENGINEER.CANINE SERVICE TEACHER Work Phone: [facility] 01-01-2025 08:27-0400 Body height 165.[address] Edgar Kaiser MD Work Phone: [facility] 01-01-2025 08:27-0400 Body mass index (BMI) [Ratio] 34.1 kg/m2 Dr. Edgar Kaiser MD Work Phone: [facility] 01-01-2025 08:27-0400 Body weight 93.[address] Edgar Kaiser MD Work Phone: [facility] 01-01-2025 08:27-0400 Diastolic blood pressure 78 mm[Hg] Dr. Edgar Kaiser MD Work Phone: [facility] 01-01-2025 08:27-0400 Heart rate 63 /min Dr. Edgar Kaiser MD Work Phone: [facility] 01-01-2025 08:27-0400 SaO2% (BldA) [Mass fraction] 98 % Dr. Edgar Kaiser MD Work Phone: [facility] 01-01-2025 08:27-0400 Systolic blood pressure 126 mm[Hg] Dr. Edgar Kaiser MD Work Phone: [facility] 09-01-2024 13:32-0500 Body height 165.[address] Edgar Kaiser MD Work Phone: [facility] 09-01-2024 13:30-0500 Body mass index (BMI) [Ratio] 32.9 kg/m2 Dr. Edgar Kaiser MD Work Phone: [facility] 09-01-2024 13:30-0500 Body weight 89.[address] Edgar Kaiser MD Work Phone: [facility] 09-01-2024 13:30-0500 Diastolic blood pressure 75 mm[Hg] Dr. Edgar Kaiser MD Work Phone: [facility] 09-01-2024 13:30-0500 Systolic blood pressure 123 mm[Hg] Dr. Edgar Kaiser MD Work Phone: [facility] 08-20-2024 08:34-0500 Body mass index (BMI) [Ratio] 33.6 kg/m2 Dr. Edgar Kaiser MD Work Phone: [facility] 08-20-2024 08:34-0500 Body weight 91.[address] Edgar Kaiser MD Work Phone: [facility] 08-20-2024 08:34-0500 Diastolic blood pressure 72 mm[Hg] Dr. Edgar Kaiser MD Work Phone: [facility] 08-20-2024 08:34-0500 Systolic blood pressure 118 mm[Hg] Dr. Edgar Kaiser MD Work Phone: [facility] 08-20-2023 11:17-0500 Body height 165.[address] Edgar Kaiser Work Phone: [facility] 08-20-2023 11:15-0500 Body mass index (BMI) [Ratio] 35.5 kg/m2 Dr. Edgar Kaiser Work Phone: [facility] 08-20-2023 11:15-0500 Body weight 96.[address] Edgar Kaiser Work Phone: [facility] 08-20-2023 11:15-0500 Diastolic blood pressure 83 mm[Hg] Dr. Edgar Kaiser Work Phone: [facility] 08-20-2023 11:15-0500 Systolic blood pressure 134 mm[Hg] Dr. Edgar Kaiser Work Phone: [facility] 07-27-2023 18:46-0500 Respiratory rate 18 /min Dr. Edgar Kaiser Work Phone: [facility] 07-27-2023 16:07-0500 Body height 165.[address] Edgar Kaiser Work Phone: [facility] 07-27-2023 16:07-0500 Body mass index (BMI) [Ratio] 36.1 kg/m2 Dr. Edgar Kaiser Work Phone: [facility] 07-27-2023 16:07-0500 Body temperature 98.3 [degF] Dr. Edgar Kaiser Work Phone: [facility] 07-27-2023 16:07-0500 Body weight 98.[address] Edgar Kaiser Work Phone: [facility] 07-27-2023 16:07-0500 Diastolic blood pressure 99 mm[Hg] Dr. Edgar Kaiser Work Phone: [facility] 07-27-2023 16:07-0500 Heart rate 78 /min Dr. Edgar Kaiser Work Phone: [facility] 07-27-2023 16:07-0500 SaO2% (BldA) [Mass fraction] 99 % Dr. Edgar Kaiser Work Phone: [facility] 07-27-2023 16:07-0500 Systolic blood pressure 141 mm[Hg] Dr. Edgar Kaiser Work Phone: [facility] 06-14-2023 12:36-0500 Body mass index (BMI) [Ratio] 35.6 kg/m2 Dr. Edgar Kaiser Work Phone: [facility] 06-14-2023 12:36-0500 Body weight 97.[address] Edgar Kaiser Work Phone: [facility] 06-14-2023 12:36-0500 Diastolic blood pressure 84 mm[Hg] Dr. Edgar Kaiser Work Phone: [facility] 06-14-2023 12:36-0500 Systolic blood pressure 128 mm[Hg] Dr. Edgar Kaiser Work Phone: [facility] 01-04-2023 08:34-0400 Body height 165.1 cm [facility] 01-04-2023 08:34-0400 Body mass index (BMI) [Ratio] 35.5 kg/m2 [facility] 01-04-2023 08:34-0400 Body temperature 98.2 [degF] [facility]-04-2023 08:34-0400 Body weight 96.78 kg [facility] 01-04-2023 08:34-0400 Diastolic blood pressure 75 mm[Hg] [facility] 01-04-2023 08:34-0400 Heart rate 79 /[facility] 01-04-2023 08:34-0400 Respiratory rate 16 /min [facility] 01-04-2023 08:34-0400 SaO2% (BldA) [Mass fraction] 97 % [facility] 01-04-2023 08:34-0400 Systolic blood pressure 123 mm[Hg] [facility] 08-17-2022 08:58-0500 Body height 165.1 cm [facility] 08-17-2022 08:58-0500 Body mass index (BMI) [Ratio] 36.2 kg/m2 [facility] 08-17-2022 08:58-0500 Body weight 98.88 kg [facility] 08-17-2022 08:58-0500 Diastolic blood pressure 79 mm[Hg] [facility] 08-17-2022 08:58-0500 Systolic blood pressure 125 mm[Hg] [facility] 07-04-2022 10:43-0500 Body mass index (BMI) [Ratio] 36.1 kg/m2 MD Hernández [facility] 07-04-2022 10:43-0500 Body weight 98.42 kg kim Gradykaitlin [facility] 07-04-2022 10:43-0500 Diastolic blood pressure 78 mm[Hg] carmelotana [facility] 07-04-2022 10:43-0500 Systolic blood pressure 130 mm[Hg] [facility] 01-12-2022 14:40-0400 Body mass index (BMI) [Ratio] 34.3 kg/m2 [facility] Work Phone: 01-12-2022 14:33-0400 Body height 167.64 cm [facility] Work Phone: 01-12-2022 14:33-0400 Body temperature 95.9 [degF] [facility] Work Phone: 01-12-2022 14:33-0400 Body weight 96.21 kg [facility] Work Phone: 01-12-2022 14:33-0400 Diastolic blood pressure 80 mm[Hg] [facility] Work Phone: 01-12-2022 14:33-0400 Heart rate 60 /min harrisonmartíntana [facility] Work Phone: 01-12-2022 14:33-0400 Respiratory rate 18 /min [facility] Gradygibson [facility] Work Phone: 01-12-2022 14:33-0400 SaO2% (BldA) [Mass fraction] 99 % [facility] Work Phone: 01-12-2022 14:33-0400 Systolic blood pressure 120 mm[Hg] [facility] Work Phone: 11-21-2021 13:53-0400 Body mass index (BMI) [Ratio] 34.3 kg/m2 [facility] Work Phone: 11-21-2021 13:53-0400 Body weight 96.61 kg [facility] Work Phone: 11-21-2021 13:53-0400 Diastolic blood pressure 86 mm[Hg] [facility] Work Phone: 11-21-2021 13:53-0400 Systolic blood pressure 129 mm[Hg] kim [facility] Work Phone: 11-21-2021 13:53-0400 Body height 167.64 cm [facility] Work Phone: 11-21-2021 13:53-0400 Body mass index (BMI) [Ratio] 34.3 kg/m2 [facility] Work Phone: 11-21-2021 13:53-0400 Body weight 96.61 kg [facility] Work Phone: 11-21-2021 13:53-0400 Diastolic blood pressure 86 mm[Hg] [facility] Work Phone: 11-21-2021 13:53-0400 Systolic blood pressure 129 mm[Hg] [facility] Work Phone: 11-17-2021 13:49-0400 Body mass index (BMI) [Ratio] 34.7 kg/m2 [facility] Work Phone: 11-17-2021 13:49-0400 Body weight 97.74 kg [facility] Work Phone: 11-17-2021 13:49-0400 Diastolic blood pressure 70 mm[Hg] [facility] Work Phone: 11-17-2021 13:49-0400 Systolic blood pressure 130 mm[Hg] [facility] Work Phone: 11-17-2021 13:49-0400 Body mass index (BMI) [Ratio] 34.7 kg/m2 [facility] Work Phone: 11-17-2021 13:49-0400 Body weight 97.74 kg [facility] Work Phone: 11-17-2021 13:49-0400 Diastolic blood pressure 70 mm[Hg] [facility] Work Phone: 11-17-2021 13:49-0400 Systolic blood pressure 130 mm[Hg] [facility] Work Phone: 05-30-2017 17:09-0400 BMI (Body Mass Index) 43.78 kg/m2 Alejandra Bernard LPN [facility] Work Phone: 05-30-2017 17:09-0400 Body Temperature 100.2 [degF] Alejandra Bernard LPN [facility] Work Phone: 05-30-2017 17:09-0400 BP Diastolic 78 mm[Hg] Alejandra Bernard LPN [facility] Work Phone: 05-30-2017 17:09-0400 BP Systolic 122 mm[Hg] Alejandra Bernard LPN [facility] Work Phone: 05-30-2017 17:09-0400 Height 139.7 cm Alejandra Bernard LPN [facility] Work Phone: 05-30-2017 17:09-0400 Pulse (Heart Rate) 73 /min Alejandra Bernard LPN [facility] Work Phone: 05-30-2017 17:09-0400 Respiratory Rate 14 /min Alejandra Bernard LPN [facility] Work Phone: 05-30-2017 17:09-0400 Weight 85.46 kg Alejandra Bernard LPN [facility] Work Phone: 09-28-2016 09:38-0500 Body Temperature 98.8 [degF] Alejandra Bernard LPN [facility] Work Phone: 09-28-2016 09:38-0500 Height 167.64 cm Alejandra Bernard LPN [facility] Work Phone: 09-28-2016 09:38-0500 Pulse (Heart Rate) 67 /min Alejandra Bernard LPN [facility] Work Phone: 09-28-2016 09:38-0500 Weight 85.73 kg Alejandra Bernard LPN [facility] Work Phone: Encounters Encounter Date Encounter Type Care Provider Facility Start: 02-09-2025 ambulatory Edgar Dodson ty:[facility] Start: 01-12-2025 End: 01-12-2025 Office outpatient new 45 minutes Radha Hua APRN.CNP Work Phone: [facility] Comment on above: ADHD (attention defi cit hyperactivity disorder), combined type (Primary Dx); Fatigue, unspecified type; Medication management; Hypothyroidism, acquired; Depression, unspecified depression type; Secondary amenorrhea Start: 01-12-2025 End: 01-12-2025 ambulatory RADHA HUA Facility:[facility] Start: 01-07-2025 End: 01-07-[address] Edgar Kaiser MD Work Phone: [facility] Work Phone: Start: 01-07-2025 End: 01-07-[address] Kaitlin Vang DO -Outpatient Breast Imaging Work Phone: Start: 01-07-2025 End: 01-07-2025 ambulatory [facility] Facility:[facility] Start: 01-01-2025 End: 01-01-[address] Edgar Kaiser MD Work Phone: [facility] Work Phone: Start: 01-01-2025 End: 01-01-[address] Parmjit Kaiser MD -Laboratory [facility] Start: 01-01-2025 End: 01-01-[address] Parmjit Kaiser MD -[facility] Work Phone: Start: 01-01-2025 End: 01-01-[address] Edgar Kaiser MD Work Phone: [facility] Work Phone: Start: 01-01-2025 End: 01-01-2025 ambulatory Parmjit Kaiser Facility:[facility] Start: 12-05-2024 End: 12-05-[address] Edgar Kaiser MD Work Phone: [facility] Work Phone: Start: 12-05-2024 End: 12-05-[address] Kaitlin Vang DO -Laboratory Work Phone: Start: 12-05-2024 End: 12-05-2024 ambulatory [facility] Facility:[facility] Start: 09-01-2024 End: 09-01-[address] Kaitlin Vang DO -[facility] Work Phone: Start: 09-01-2024 End: 09-01-[address] Kaitlin Vang DO [facility] Start: 09-01-2024 End: 09-01-2024 ambulatory [facility] Start: 08-20-2024 End: 08-20-[address] Dayana Virk DC -[facility] Work Phone: Start: 08-20-2024 End: 08-20-2024 ambulatory Dayana Virk [facility] Start: 08-03-2024 End: 08-03-2024 Emergency department patient visit David Sharan Facility:[facility] Start: 07-09-2024 ambulatory Edgar Dodson ty:[facility] Start: 06-13-2024 End: 06-28-2024 ambulatory Edgar Kaiser Facility:[facility] Start: 02-27-2024 End: 02-27-2024 ambulatory Karlos ALEMAN [facility] Start: 10-15-2023 End: 10-15-[address] Edgar Kaiser Work Phone: [facility] Work Phone: Start: 10-15-2023 End: 10-15-[address] Edgar Kaiser Work Phone: [facility]-Laboratory Work Phone: Start: 09-19-2023 End: 09-19-[address] Edgar Kaiser Work Phone: [facility] Work Phone: Start: 08-20-2023 End: 08-20-[address] Edgar Kaiser Work Phone: [facility] Work Phone: Start: 08-20-2023 End: 08-20-[address] Edgar Kaiser Work Phone: [facility] Work Phone: Start: 07-27-2023 End: 07-27-2023 Emergency department patient visit Dr. Edgar Kaiser Work Phone: [facility]-Emergency Department Work Phone: Start: 07-05-2023 End: 07-05-[address] Edgar Kaiser Work Phone: [facility] Work Phone: Start: 06-26-2023 End: 06-26-[address] Edgar Kaiser Work Phone: [facility] Work Phone: Start: 06-14-2023 End: 06-14-[address] Edgar Kaiser Work Phone: [facility] Work Phone: Start: 05-07-2023 End: 05-29-2023 ambulatory [facility] Work Phone: Start: 05-07-2023 End: 05-29-[address] [facility] Start: 04-16-2023 End: 04-28-[address] Start: 04-16-2023 Registered Recurring MD Mary MAURO [facility] Start: 04-12-2023 End: 04-12-2023 ambulatory MD Edgar MAURO [facility] Work Phone: Start: 04-12-2023 End: 04-12-2023 Patient encounter procedure MD Edgar MAURO [facility]-Laboratory Work Phone: Start: 01-04-2023 End: 01-04-2023 Patient encounter procedure MD Edgar MAURO [facility] Work Phone: Start: 12-04-2022 End: 12-04-2022 ambulatory MD Edgar MAURO [facility] Work Phone: Start: 12-04-2022 End: 12-04-2022 Patient encounter procedure MD Edgar MAURO [facility]-Outpatient Breast Imaging Start: 08-17-2022 End: 01-19-2023 ambulatory MD Efewongbe [facility] Work Phone: Start: 08-17-2022 End: 08-17-2022 Patient encounter procedure MD Edgar Kaiser [facility]-Laboratory, Specimen Start: 08-17-2022 End: 08-17-2022 Patient encounter procedure kim Kaiser [facility] Start: 07-17-2022 End: 07-17-2022 Patient encounter procedure kim Gradygibson [facility] Start: 07-11-2022 End: 07-11-2022 [facility] Start: 07-04-2022 End: 07-04-2022 [facility] Start: 03-28-2022 End: 03-29-2022 ambulatory No Primary Care Physician [facility] Work Phone: Start: 03-28-2022 End: 03-29-2022 Discharged Recurring No Primary Care Physician [facility] Start: 01-12-2022 End: 01-12-2022 [facility] Start: 12-17-2021 End: 12-27-2021 [facility] Start: 11-21-2021 End: 11-21-2021 [facility] Start: 11-17-2021 End: 11-17-2021 Patient encounter procedure kim [facility] Start: 11-17-2021 End: 11-17-2021 [facility] Start: 09-12-2021 End: 09-26-2021 [facility] Procedures Date Procedure Procedure Detail Performing Clinician Start: 01-07-2025 Screening mammography Fernanda Kaiser MD Work Phone: Start: 01-01-[address] hormone [address] Edgar Kaiser MD Work Phone: Comment on above: FEMALE:Follicular: 1 .4 - 18.1 mIU/mLMidcycle: 3.4 - 33.4 mIU/mLLuteal: 1.5 - 9.1 mIU/mLPost Menopause: 23.0 - 116.3 mIU/mLMALE: 1.4 - 18.1 mIU/mL Start: 01-01-[address] Edgar Kaiser MD Work Phone: Comment on above: FEMALE:Follicular: 1 .9-12.5 mIU/mLMidcycle: 8.7-76.3 mIU/mLLuteal: 0.5-16.9 mIU/mLPost Menopause: 15.9-54.0 mIU/mLMALE:20-70 Years: 1.5-9.3 mIU/mL>70 Years: 3.1-34.6 mIU/mL Start: 12-05-2024 Vitamin D, 25-hydrox y measurement Dr. Edgar Kaiser MD Work Phone: Comment on above: Vitamin D StatusDefi ciency: <20 ng/mL (50nmol/L)Insufficiency: 20-30 ng/mL (50-75 nmol/L)Sufficiency: 30-100 ng/mL (75-250 nmol/L)Toxicity: >100 ng/mL (>250 nmol/L) Start: 07-27-2023 Computed tomography of thoracic spine without contrast Dr. Edgar Kaiser Work Phone: Start: 07-27-2023 Radiography of thora cic spine Dr. Edgar Kaiser Work Phone: Start: 05-07-2023 Viral antigen assay Start: 04-16-2023 Viral antigen assay MD Edgar MAURO Start: 12-04-2022 Screening mammography M Fernanda MAURO Start: 12-17-2021 End: 12-17-2021 Viral antigen assay MD Edgar Kaiser Start: 11-17-2021 Investigation of tra nsfusion reaction MD Edgar Kaiser Start: 11-17-2021 Microbial culture, routine MD Edgar Kaiser Start: 09-12-2021 SARS-CoV-2 Antigen (Rapid) MD Edgar Kaiser Start: 12-20-2016 End: 12-21-2016 Thyrotropin [Units/volume] in Serum or Plasma Lizette So NP Work Phone: Start: 12-20-2016 End: 12-21-2016 Thyroxine (T4) free [Mass/volume] in Serum or Plasma Lizette So NP Work Phone: Start: 12-20-2016 End: 12-21-2016 Triiodothyronine (T3) Free [Mass/volume] in Serum or Plasma Lizette So NP Work Phone: Start: 11-23-2016 End: 11-23-2016 Chiropractic manipulative tx spinal 3-4 regions Dayana B Dossi DC Work Phone: Start: 11-16-2016 End: 11-16-2016 Chiropractic manipulative tx spinal 1-2 regions Dayana B Dossi DC Work Phone: Start: 10-23-2016 End: 10-23-2016 Chiropractic manipulative tx spinal 1-2 regions Dayana B Dossi DC Work Phone: Start: 10-18-2016 End: 10-19-2016 Chiropractic manipulative tx spinal 1-2 regions Dayana B Dossi DC Work Phone: Start: 09-28-2016 End: 09-28-2016 Thyrotropin [Units/volume] in Serum or Plasma Lizette So NP Work Phone: Start: 09-28-2016 End: 09-28-2016 Thyroxine (T4) free [Mass/volume] in Serum or Plasma Lizette So NP Work Phone: Start: 09-28-2016 End: 09-28-2016 Triiodothyronine (T3) Free [Mass/volume] in Serum or Plasma Lizette So PATIENT PORTAL REPRESENTATIVE Work Phone: Investigation of tra nsfusion reaction MD Edgar Kaiser Microbial culture, routine M D Edgar Kaiser Viral antigen assay MD [place] [facility] Plan of Treatment Date Care Activity Detail Author Start: 09-15-2026 Urine microalbumin profile DTa P,Tdap,Td Vaccine (2 - Td or Tdap) [facility] Start: 02-09-2025 End: 02-09-2025 Patient encounter procedure 02/09/2025 9:00 AM EDT Office Visit [facility] [address] [place] [address] Radha Hua APRN.CANINE SERVICE TEACHER [address], [place] [id number] 1 month follow up [facility] Comment on above: 1 month follow up Start: 01-12-2025 End: 04-13-2025 QUANTITATIVE TOXICOLOGY PANEL, URINE QUANTITATIVE TOXICOLOGY PANEL, URINE Lab Routine Medication management Expected: 01/12/2025, Expires: 04/13/2025 [facility] Comment on above: Expected: 01/12/2025 , Expires: 04/13/2025 Start: 03-30-2024 Covid-19 Vaccine ( season) Covid-19 Vaccine () [facility] Start: 07-27-2023 [facility] Start: 2022 Screening for malign ant neoplasm of breast Mammogram Screening [facility] Start: 11-03-2018 Screening for malign ant neoplasm of cervix Cervical Cancer Screening [facility] Start: 05-30-2017 End: 05-30-2017 Appointment Appointment [facility] Work Phone: Start: 12-22-2016 End: 12-22-2016 Thyroid stimulating hormone (TSH) *TSH [facility] Work Phone: Start: 12-22-2016 End: 12-22-2016 Thyroxine (T4) free *T4 free [facility] Work Phone: Start: 12-20-2016 End: 12-21-2016 Thyroid stimulating hormone (TSH) *TSH [facility] Work Phone: Start: 12-20-2016 End: 12-21-2016 Thyroxine (T4) free *T4 free [facility] Work Phone: Start: 12-20-2016 End: 12-21-2016 Triiodothyronine (T3) free *T3-Free [facility] Work Phone: Start: 11-16-2016 End: 11-16-2016 Follow up Appt 1x/week Follow up Appt 1x/week [facility] Work Phone: Start: 10-18-2016 End: 10-19-2016 Follow up Appt 1x/week Follow up Appt 1x/week [facility] Work Phone: Start: 09-28-2016 End: 10-07-2016 Thyroid stimulating hormone (TSH) *TSH [facility] Work Phone: Start: 09-28-2016 End: 09-28-2016 Thyroxine (T4) free *T4 free [facility] Work Phone: Start: 09-28-2016 End: 09-28-2016 Triiodothyronine (T3) free *T3-Free [facility] Work Phone: Start: 2001 Hepatitis B Vaccine (1 of 3 - 19+ 3-dose series) Hepatitis B Vaccine (1 of 3 - 19+ 3-dose series) [facility] Start: 01-30-2000 Anxiety Screening Anxiety Screening [facility] Start: 01-30-2000 Depression Screening Depression Scre ening [facility] Start: 01-30-2000 Hepatitis C screening Hepatitis C [facility] CBC W Auto Different ial panel - Blood [facility] Cobalamin (Vitamin B 12) [Mass/volume] in Serum or Plasma [facility] Comprehensive metabo lic 2000 panel - Serum or Plasma [facility] Estradiol (E2) [Mass/volume] in Serum or Plasma [facility] Ferritin [Mass/volum e] in Serum or Plasma [facility] Follitropin and Lutr opin panel [Units/volume] - Serum or Plasma [facility] End: 01-12-2026 HOME SLEEP APNEA TEST (HSAT) HOME SLEEP APNEA TEST (HSAT) Procedures Routine Fatigue, unspecified type 1 Occurrences starting 01/12/2025 until 01/12/2026 [facility] Work Phone: Comment on above: 1 Occurrences starti ng 01/12/2025 until 01/12/2026 MG Breast - bilatera l Screening [facility] MG Breast - bilatera l Screening [facility] MG Breast - bilatera l Screening [facility] Patient Education ED Thoracic Sp ine Strain [facility] Work Phone: Patient referral [facility] Work Phone: TOXICOLOGY SCREEN, R OUTINE URINE TOXICOLOGY SCREEN, ROUTINE URINE Lab Routine Medication management Ordered: 01/12/2025 [facility] Comment on above: Ordered: 01/12/2025 Immunizations Immunization Date Immunization Notes Care Provider [facility] 06-05-2024 influenza, seasonal, injectable, preservative free Dr. Edgar Kaiser MD Work Phone: [facility] 05-17-2023 influenza, injectabl e, quadrivalent, preservative free [facility] 06-05-2022 influenza, injectabl e, quadrivalent, preservative free kim Kaiser [facility] 06-05-2022 influenza, seasonal, injectable kim Gradygibson [facility] 08-09-2021 COVID-19 original vaccine, age 12+ yr, monovalent (PFIZER-BIONTECH - MATSON TOP) Radha Hua APRN.CANINE SERVICE TEACHER Work Phone: [facility] 06-14-2021 influenza, injectabl e, quadrivalent, preservative free MD Edgar MAURO [facility] 06-14-2021 influenza, seasonal, injectable [facility] 01-21-2021 COVID-19 original vaccine, age 12+ yr, monovalent (PFIZER-BIONTECH - PURPLE TOP) Radha Hua APRN.CANINE SERVICE TEACHER Work Phone: [facility] 06-01-2021 COVID-19 original vaccine, age 12+ yr, monovalent ([employer] - PURPLE TOP) Radha Haamerica MASSE[facility] Work Phone: [facility] 06-21-2020 influenza, injectabl e, quadrivalent, [facility]ative [facility] 06-21-2020 influenza, seasonal, injectable [facility] 05-14-2019 influenza, injectabl e, quadrivalent, preservative free [facility] 05-14-2019 influenza, seasonal, injectable [facility] 05-13-2018 influenza, injectabl e, quadrivalent, preservative free [facility] 05-13-2018 influenza, seasonal, injectable [facility] 05-04-2017 influenza, injectabl e, quadrivalent, preservative free [facility] 05-04-2017 influenza, seasonal, injectable [facility] 09-15-2016 tetanus toxoid, redu tai diphtheria toxoid, and acellular pertussis vaccine, adsorbed Alejandra Bernard ESL INSTRUCTOR [facility] Work Phone: 04-27-2016 influenza, injectabl e, quadrivalent, preservative free [facility] 04-27-2016 influenza, seasonal, injectable [facility] 06-07-2015 influenza, injectabl e, quadrivalent, preservative free [facility] 06-07-2015 influenza, seasonal, injectable [facility] Payers Date Payer Category Payer Self-pay [id number] 2022 [facility] PPO [id number] 2022 Unknown [id number] 2015 Unknown [id number] Unknown [id number] Unknown [id number] Unknown [id number] Unknown [id number] Unknown [id number] Unknown [id number] Unknown [id number] Unknown [id number] Unknown [id number] Unknown [id number] Unknown [id number] Social History Date Type Detail Facility Start: 11-21-2021 End: 09-19-2023 Tobacco smoking status NHIS Unknown if ever smoked [facility] Start: 1980 Sex Assigned At Female W [facility] Start: 08-03-2024 End: 01-12-2025 Tobacco smoking status NHIS Never smoked tobacco (finding) [facility] Start: 01-12-2025 Tobacco use and exposure Smoke less tobacco non-user [facility] Start: 01-12-2025 Alcoholic beverage intake Curr ent drinker of alcohol (finding) [facility] Start: 01-07-2025 End: 01-12-2025 History of Social function [facility] Start: 01-07-2025 End: 01-12-2025 [place] [employer] [facility] Has the [employer], or [employer] threatened to shut off services in your home in past 12Mo No [facility] Do you belong to any clubs or organizations such as confucianist groups, unions, fraternal or athletic groups, or school groups? Yes [facility] Are you now , , , , never or living with a partner? [facility] How often to you hav e a drink containing alcohol? 2-3 time sa week [facility] How many standard dr inks containing alcohol do you have on a typical day? 1 or 2 [facility] How often do you hav e 6 or more drinks on 1 occasion? Never [facility] How hard is it for y ou to pay for the very basics like food, housing, medical care, and heating Not hard at all [facility] Do you feel stress - tense, restless, nervous, or anxious, or unable to sleep at night because your mind is troubled all the time - these days [OSQ] Only a little [facility] (I/We) worried pacheco er (my/our) food would run out before (I/we) got money to buy more. Never true [facility] Start: 04-27-2016 Alcohol Comment occ, not while [facility] Start: 1980 Sex assigned at [facility] Goals Date Patient Goal Desired Activity /State Functional Status Date Assessment Result Facility 11-13-2014 Are you deaf, or do you have serious difficulty hearing No 11/13/2014 3:56 PM EDT Masters Kenya Najera [facility] 11-13-2014 Are you blind, or do you have serious difficulty seeing, even when wearing glasses No 11/13/2014 3:56 PM EDT Anders NajeraKenya [facility] 11-13-2014 Do you have serious difficulty walking or climbing stairs No 11/13/2014 3:56 PM EDT Anders Kenya Najera [facility] 11-13-2014 Do you have difficul ty dressing or bathing No 11/13/2014 3:56 PM EDT Anders NajeraKenya [facility] 11-13-2014 Because of a physica l, mental, or emotional condition, do you have difficulty doing errands alone such as visiting a physician's office or shopping No 11/13/2014 3:56 PM EDT Anders NajeraKenya [facility] Mental Status Date Assessment Result Facility 11-13-2014 Because of a physica l, mental, or emotional condition, do you have serious difficulty concentrating, remembering, or making decisions No 11/13/2014 3:56 PM EDT Anders NajeraKenya [facility] Clinical Notes 08-17-2022 to 01-12-2025 Addendum Note - Radha Hua APRN.CNP - 01/12/2025 8:09 PM EDTAddendum Note - Radha Hua APRN.CNP - 01/12/2025 8:09 PM EDTPatient Instructions Note Date & Type Note Facility 01-12-2025 Note Addended by: RADHA HUA on: 01/12/2025 08:09 PM Modules accepted: Orders [facility] 01-12-2025 Miscellaneous Notes Addended by: RADHA HUA on: 01/12/2025 08:09 PM Modules accepted: Orders documented in this encounter [facility] 01-12-2025 Instructions Radha Hua APRN.CNP - 01/12/2025 4:52 PM EDT - Complete the home sleep study kit as soon as you receive it and return it per instructions. If the results are inconclusive, an in-lab study may be needed--you may go to [facility] for that. Contact us if you don t hear from the sleep center within one week. - Start short-acting Adderall 5 mg: break the tablet in half and take one half (2.5 mg) each morning on days you need extra focus. Try this dose for one month. If you tolerate it and need longer coverage, we can switch you to a 10 mg long-acting formulation. - Because you re taking Nai s Wort, watch for rapid heart rate, flushing, or other unusual symptoms while on Adderall and report any concerns right away. - Sign the controlled-substance medication agreement and complete your urine drug screen at your convenience (you can use the [facility]). - Schedule a follow-up in one month to review how the ADHD medication is working. Contact the office sooner if you experience side effects or need a dose adjustment. documented in this encounter [facility] 01-12-2025 Note HNO ID: [id number] Author: RADHA HUA APRN.RAMY Service: ? Author Type: Nurse Practitioner Type: Progress Notes Filed: 01/12/2025 19:55 Note Text: This is a 44 year old female who presents today with: Taqueria Bragg is a 44-year-old female with a history of hypothyroidism, presenting for evaluation of fatigue, amenorrhea, dyspnea, and ADHD symptoms. HISTORY OF PRESENT ILLNESS: Fatigue: - Persistent fatigue, requiring frequent naps. - Recent sleep disturbances, waking at 0200 or 0400, with difficulty returning to sleep. - Reports snoring and occasional apneic episodes during sleep. - Had lost weight last year, but recent weight gain of approximately 15 lbs. - Denies abdominal pain or chest pain. - Occasional palpitations, longstanding. Amenorrhea: - Missed menstrual periods for three months. - Negative test. - Recent heavy menstrual period after taking one dose of prescribed Provera. - Reports severe fatigue and irritability during the recent menstrual period. - Recent lab work by weatherization specialist reportedly normal Dyspnea: - Recent onset of dyspnea during daily activities, including walking and climbing stairs. - Previously engaged in regular cardiovascular exercise, but has reduced activity due to caring for a high-energy dog. ADHD Symptoms: - Reports difficulty concentrating, forgetfulness, and inability to complete tasks. - Symptoms reportedly worsened after having children. - Has been taking Mango's Wort for depression for five years, with recent addition of another supplement by a naturopathic doctor. - Expresses interest in trying medication for ADHD, but prefers to start with a low dose. 01/12/2025 Adult ADD Trouble wrapping up final details of projects 3 - Often Difficulty getting order on tasks requiring organization 3 - Often Have problems remembering appts/obligations 4 - Very Often Avoid/delay tasks requiring a lot of thought 3 - Often Fidget/squirm when sitting a long time 2 - Sometimes Feel overly active/compelled to do things 2 - Sometimes Careless Mistakes on boring/difficult projects 3 - Often Difficult keeping attention on boring/repetitive work 4 - Very Often Difficulty concentrating on what people say 3 - Often Misplace/difficulty finding things at home/work 3 - Often Distracted by activity/noise 2 - Sometimes Leave your seat when expected to remain seated 1 - Rarely Feel restless/fidgety 2 - Sometimes Difficulty unwinding/relaxing when you have time 3 - Often Talk too much in social situations 2 - Sometimes Finish other's sentences 1 - Rarely Difficulty waiting your turn 1 - Rarely Interrupt others when they are busy 1 - Rarely Hypothyroidism: - Managed by weatherization specialist. - Family history of hypothyroidism in both parents and siblings. PAST MEDICAL HISTORY: PAST MEDICAL HISTORY Diagnosis Date anxiety and depression Hypothyroidism depression PAST SURGICAL HISTORY Procedure Laterality Date NONE ALLERGIES Augmentin [Amoxicillin-Pot Clavulanate] and Sulfa (Sulfonamide Antibiotics) MEDICATIONS Current Outpatient Medications Medication Sig dextroamphetamine-amphetamine (ADDERALL) 5 mg tablet Take 1 tablet by mouth once daily for 30 days. As needed levothyroxine (SYNTHROID) 75 mcg tablet TAKE 1 TABLET DAILY BEFORE BREAKFAST Norethindrone, Contraceptive, (ORTHO MICRONOR) 0.35 mg tablet Take 1 tablet by mouth once daily. Miscellaneous Medical Supply misc 1 Each once daily. Support belly band [id number] ( VITAMIN) tab Take 1 tablet by mouth once daily. No current facility-administered medications for this visit. FAMILY HISTORY Problem Relation Age of Onset other (hypothyroidism) Mother other (addisons) Mother auto immune disease Hyperlipidemia Mother Hyperlipidemia Father Hypothyroidism Father No Known Problems Sister Zoey Disease Brother Hypothyroidism Brother Arthritis Maternal Grandmother Hypothyroidism Maternal Grandmother Colon Cancer Maternal Grandfather approx late 60s other (uterine cancer) Paternal Grandmother in her 40's Heart Attack Paternal Grandfather Social History Tobacco Use Smoking status: Never Smokeless tobacco: Never Vaping Use Vaping status: Never Used Substance Use Topics Alcohol use: Yes Comment: occ, not while Drug use: No REVIEW OF SYSTEMS Constitutional: (+) fatigue, (+) excessive daytime sleepiness, (+) weight gain, (+) night sweats Ears/Nose/Mouth/Throat: (+) snoring Cardiovascular: (+) palpitations, (-) chest pain Respiratory: (+) exertional shortness of breath, (+) witnessed apnea Gastrointestinal: (-) abdominal pain Genitourinary: (+) amenorrhea, (+) heavy menstrual bleeding Neurological: (+) memory impairment Psychiatric: (+) difficulty concentrating, (+) irritability Endocrine: (+) hot flashes EXAM: BP 128/82 Pulse 61 Resp 16 LMP 03/10/ (more content not included)... [facility] 01-12-2025 History of Presen t illness Narrative This is a 44 year old female who presents today with: Taqueria Bragg is a 44-year-old female with a history of hypothyroidism, presenting for evaluation of fatigue, amenorrhea, dyspnea, and ADHD symptoms. HISTORY OF PRESENT ILLNESS: Fatigue: - Persistent fatigue, requiring frequent naps. - Recent sleep disturbances, waking at 0200 or 0400, with difficulty returning to sleep. - Reports snoring and occasional apneic episodes during sleep. - Had lost weight last year, but recent weight gain of approximately 15 lbs. - Denies abdominal pain or chest pain. - Occasional palpitations, longstanding. Amenorrhea: - Missed menstrual periods for three months. - Negative test. - Recent heavy menstrual period after taking one dose of prescribed Provera. - Reports severe fatigue and irritability during the recent menstrual period. - Recent lab work by weatherization specialist reportedly normal Dyspnea: - Recent onset of dyspnea during daily activities, including walking and climbing stairs. - Previously engaged in regular cardiovascular exercise, but has reduced activity due to caring for a high-energy dog. ADHD Symptoms: - Reports difficulty concentrating, forgetfulness, and inability to complete tasks. - Symptoms reportedly worsened after having children. - Has been taking Mango's Wort for depression for five years, with recent addition of another supplement by a naturopathic doctor. - Expresses interest in trying medication for ADHD, but prefers to start with a low dose. 01/12/2025 Adult ADD Trouble wrapping up final details of projects 3 - Often Difficulty getting order on tasks requiring organization 3 - Often Have problems remembering appts/obligations 4 - Very Often Avoid/delay tasks requiring a lot of thought 3 - Often Fidget/squirm when sitting a long time 2 - Sometimes Feel overly active/compelled to do things 2 - Sometimes Careless Mistakes on boring/difficult projects 3 - Often Difficult keeping attention on boring/repetitive work 4 - Very Often Difficulty concentrating on what people say 3 - Often Misplace/difficulty finding things at home/work 3 - Often Distracted by activity/noise 2 - Sometimes Leave your seat when expected to remain seated 1 - Rarely Feel restless/fidgety 2 - Sometimes Difficulty unwinding/relaxing when you have time 3 - Often Talk too much in social situations 2 - Sometimes Finish other's sentences 1 - Rarely Difficulty waiting your turn 1 - Rarely Interrupt others when they are busy 1 - Rarely Hypothyroidism: - Managed by weatherization specialist. - Family history of hypothyroidism in both parents and siblings. PAST MEDICAL HISTORY: PAST MEDICAL HISTORY Diagnosis Date anxiety and depression Hypothyroidism depression PAST SURGICAL HISTORY Procedure Laterality Date NONE ALLERGIES Augmentin [Amoxicillin-Pot Clavulanate] and Sulfa (Sulfonamide Antibiotics) MEDICATIONS Current Outpatient Medications Medication Sig dextroamphetamine-amphetamine (ADDERALL) 5 mg tablet Take 1 tablet by mouth once daily for 30 days. As needed levothyroxine (SYNTHROID) 75 mcg tablet TAKE 1 TABLET DAILY BEFORE BREAKFAST Norethindrone, Contraceptive, (ORTHO MICRONOR) 0.35 mg tablet Take 1 tablet by mouth once daily. Miscellaneous Medical Supply misc 1 Each once daily. Support belly band Lhayqdmk-Nx-Rio-Fe-FA ( VITAMIN) tab Take 1 tablet by mouth once daily. No current facility-administered medications for this visit. FAMILY HISTORY Problem Relation Age of Onset other (hypothyroidism) Mother other (addisons) Mother auto immune disease Hyperlipidemia Mother Hyperlipidemia Father Hypothyroidism Father No Known Problems Sister Zoey Disease Brother Hypothyroidism Brother Arthritis Maternal Grandmother Hypothyroidism Maternal Grandmother Colon Cancer Maternal Grandfather approx late 60s other (uterine cancer) Paternal Grandmother in her 40's Heart Attack Paternal Grandfather Social History Tobacco Use Smoking status: Never Smokeless tobacco: Never Vaping Use Vaping status: Never Used Substance Use Topics Alcohol use: Yes Comment: occ, not while Drug use: No REVIEW OF SYSTEMS Constitutional: (+) fatigue, (+) excessive daytime sleepiness, (+) weight gain, (+) night sweats Ears/Nose/Mouth/Throat: (+) snoring Cardiovascular: (+) palpitations, (-) chest pain Respiratory: (+) exertional shortness of breath, (+) witnessed apnea Gastrointestinal: (-) abdominal pain Genitourinary: (+) amenorrhea, (+) heavy menstrual bleeding Neurological: (+) memory impairment Psychiatric: (+) difficulty concentrating, (+) irritability Endocrine: (+) hot flashes EXAM: BP 128/82 Pulse 61 Resp 16 LMP 03/10/2016 (LMP Unknown) SpO2 100% PHYSICAL EXAM: General Appearance: Well appearing, alert, in no acute distress, well-hydrated, well nourished.. Skin: Skin color, texture, turgor normal, no suspicious rashes or lesions. Head: Normocephalic, no masses, lesions, tenderness or abnormalities. Eyes: Anicteric sclera. Pupils are equally round and reactive to light. Extraocular movements are intact. . Ears: External ears normal, canals clear. Normal TMs bilaterally. Oropharynx: Lips, mucosa, and tongue normal, teeth and gums normal, oropharynx normal. Neck: Supple, no adenopathy; thyroid symmetric, normal size, no bruits. Lungs: Lungs clear to auscultation. No wheezing, rhonchi, rales.. Heart: RRR without murmur, gallop, or rubs. No ectopy. Abdomen: Abdomen soft, non-tender. Bowel sounds normal. No masses, organomegaly. Extremities: No deformities, edema, skin discoloration, clubbing or cyanosis. Good capillary refill. . Neurologic: Gait normal. ASSESSMENT/PLAN 1. ADHD (attention deficit hyperactivity disorder), combined type (F90.2) - Administered ADHD assessment test. Indicated 4 in section A consistent with ADD/ADHD. - Discussed treatment options, including stimulant and non-stimulant medications. - Initiated Adderall 5 mg, instructed to start with half tablet (2.5 mg) once daily as needed to minimize potential side effects and assess tolerance. - Educated on potential interaction with Nai's Wort, specifically risk of serotonin syndrome; advised to monitor for symptoms such as tachycardia and flushing. - Discussed potential side effects including insomnia and palpitations. - Patient agreed to medication trial. - Signed medication agreement and ordered random urine drug screen. - Follow-up in one month to assess efficacy and tolerability. 2. Fatigue, unspecified type (R53.83) - Ordered home sleep study to evaluate for sleep apnea; patient will be contacted by the sleep study provider. - Discussed potential impact of weight on sleep quality and snoring. - Advised on the importance of regular sleep patterns and potential dietary modifications to improve energy levels. - Follow-up pending sleep study results. 3. Medication management (Z79.899) - Reviewed current medications including Mango's Wort. - Discussed potential interactions with new ADHD medication. - Advised to continue current medications as prescribed. 4. Hypothyroidism, acquired (E03.9) - Stable on current thyroid medication. - Recent thyroid function tests reviewed; no abnormalities noted. - Continue current thyroid management. 5. Depression, unspecified depression type (F32.A) - Symptoms of depression discussed, including fatigue and lack of motivation. - Patient currently using Mango's Wort for mood stabilization. - Monitor mood changes with initiation of ADHD medication. - Follow-up in one month to reassess mood and energy levels. 6. Secondary amenorrhea (N91.1) - Recent episode of amenorrhea resolved with Provera challenge; heavy menses reported post-treatment. - Discussed potential causes including hormonal imbalances and perimenopause. - Educated on the importance of regular menstrual cycles to reduce risk of endometrial hyperplasia. - Advised to monitor menstrual cycles and report any irregularities. - Follow-up with DATA ENTRY MACHINE OPERATOR if amenorrhea recurs. Discussed treatment plan and patient voices understanding. Patient's questions answered appropriately. Medications and potential side effects were discussed and patient voices understanding. Return to the office as scheduled or as needed for worsening/no improvement. Radha Hua APRN.CANINE SERVICE TEACHER Recording using [employer] software for draft documentation of the visit was discussed with the patient/authorized membership sales representative; all questions welcomed and answered. 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 December 8:25am [facility] Work Phone: 1(850) 561-715401-22-2025 Evaluation note* Diagnosis Onset Date Resolution Status Admit Date Neck pain acute August 20, 2024 8:25am Segmental and somatic dysfunction of cervical region acute August 20 8:25am Segmental and somatic dysfunction of lumbar region acute Jul 8:25am Segmental and somatic dysfunction of thoracic region acute August 20 8:25am Encounter for routine gynecological examination noneactive 2024 1:28pm [facility] Work Phone: 1(622) 710-325512-29-2023 Discharge summary Author Cortes Robert [facility] July 27, 2023 6:39pm Note Date/Time July 27, 2023 4:39pm [facility] Medical Records Department [address] [place] [address] Emergency Department Summary 07/27/23 MR#: [id number] Acct: [id number] Name: TAQUERIA BRAGG Rep #:[id number] : 1980 43 From: Cortes Robert MD PCP: Dr. Edgar Kaiser MD Status:R EG ER Location: ED HPI History of Present Illness Chief Complaint: Back Informant: patient Narrative Narrative: Patient fell while rollerskating injuring her back and potentially her left shoulder. She states her son fell in front of her and she was trying to avoid him, her skate got caught in the clothing of her son, and then she hyperextendedat her back as she was falling, feeling a crack and immediate severe pain, and she states that she thinks her left upper extremity was extended up in the air and then hyperextended back while in that position. She states her shoulder is not really hurting anymore but her back is really burning from the lower thoracic radiating up to the thoracic back in the middle. She has no neck or low back tenderness. She has no numbness radiating around anywhere or into any extremities. She denies having any problems walking, no bowel or bladder dysfunction. She states the back seems to feel worse when she takes a very deepbreath but she denies any dyspnea or chest discomfort. PFSH PFS Medical History Angioedema Anxiety Anxiety and depression Autoimmune urticaria Chronic headaches Depression Depression Food allergic skin reaction Hives Hypothyroidism Seasonal allergies Home Medications levothyroxine 112 mcg tablet 112 mcg PO DAILY #90 tabs 01/04/23 [Rx Last Taken Unknown] orphenadrine citrate 100 mg tablet,extended release 100 mg PO Q12H PRN muscle pain #14 tabs 07/27/23 [Rx Last Taken Unknown] tramadol 50 mg tablet 50 mg PO Q6H PRN pain 3 days #12 tabs 07/27/23 [Rx Last Taken Unknown] Allergy/AdvReac Type Severity Reaction Status Date / Time amoxicillin [From Augmentin] Allergy Hives/ Verified 07/27/23 16:07 DIARRHEA clavulanic acid Allergy Hives Verified 07/27/23 16:07 [From Augmentin] sulfamethoxazole Allergy Hives Verified 07/27/23 16:07 [From Bactrim] trimethoprim [From Bactrim] Allergy Hives Verified 07/27/23 16:07 Family History Mother Addisons disease Osteoporosis Hypertension Father Hypertension Grandfather Colon cancer Other Adrenal abnormality CVA (cerebral vascular accident) Cancer Thyroid disorder Social History number of children: 2 current occupational status: employed 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[employer] Smoking Status: Never smoker second hand exposure: No alcohol intake: current alcohol intake frequency: holidays/special occasions only substance use type: does not use what type of physical activity do you participate in: none seatbelt use: always do you feel safe at home: Yes additional social history: Nelly MALDONADO ROS ROS ED Constitutional Constitutional ED: Denies chills or fever(s) Eyes Eyes: Denies change in vision or diplopia ENT ENT ED: Denies ear pain, epistaxis, facial pain or rhinorrhea Cardiovascular Cardiovascular: Denies chest pain or palpitations Respiratory/Chest Respiratory/Chest: Denies cough or dyspnea Gastrointestinal Gastrointestinal: Denies abdominal pain, diarrhea, melena, nausea or vomiting Genitourinary Genitourinary ED: Denies dysuria or hematuria Musculoskeletal Musculoskeletal: Reports back pain and extremity pain; Denies neck pain Integumentary Denies abscess, Abrasions, laceration or rash Neurologic Neurologic: Denies confusion, headache(s), paresthesias or weakness EXAM Physical Exam Const Vital Signs: 07/27/23 16:07 Temperature 98.3 F Temperature Source Temporal Pulse Rate 78 Respiratory Rate 14 Blood Pressure 141/99 H Blood Pressure Mean 113 Pulse Ox 99 Oxygen Delivery Method Room Air Positive well nourished and well developed General Appearance ED: well developed and NAD HEENT Reports nasal mucous membranes and turbinates normal atraumatic Face and Sinus: Negative for facial tenderness Eyes PERRL and EOMs intact bilaterally Neck full ROM and supple General: Negative for tenderness Chest Wall inspection of chest normal and palpation of chest normal Chest: symmetrical chest wall rise; Negative for crepitus or tenderness Resp normal respiratory effort and clear to auscultation bilaterally Resp Narrative: Equal breath sounds bilaterally Percussion: other equal BS bilat Cardio no murmurs Rate: regular rate; Negative for tachycardic Rhythm: regular rhythm GI normal to inspection, nondistended, normoactive bowel sounds, soft to palpation and non-tender Back/Spine Back/Spine Narrative: Normal on inspection. No reproducible tenderness. Patient indicates pain starts at about the T11-12 area and radiates up to about the T3-5 area. There is no rib tenderness throughout the back. There is no splinting with deep inspiration. She has very limited range of motion, exam is performed while the patient is standing, she is apprehensive about moving about the thoracic spine. Cervical Spine: Negative for cervical spine tenderness Thoracic Spine / Upper Back: Negative for thoracic spinal tenderness Lumbar Spine / Lower Back: Negative for lumbar spinal tenderness Extremity normal to inspection and full ROM General Extremety ED: Negative for tenderness Neuro oriented x3, CN's II-XII intact bilaterally, moves all extremities, no focal motor deficits and no sensory deficits noted Santiago Coma Scale: document GCS findings Spontaneous Obeys Commands Oriented 15 Sensorium / Orientation: awake and alert Psych mental status grossly normal and thought process normal Mood & Affect: tearful Skin no wounds Lesions: no lesions Rashes: no rashes MDM MDM MDM Narrative Medical decision making narrative: Three-view x-ray series of the thoracic spine was obtained after patient was medicated with Toradol, on my interpretation there are no acute fractures or facet dislocations. Radiology was in agreement. Given the patient's severe symptoms, I thought it best to send her for a CT to ensure that there were no other bony explanations for her pain such as transverse process fracture, pedicle fracture, or acute disc space narrowing to suggest an acute disc rupturewhich is thought to be less likely since she has no neurologic symptoms. This was performed I reviewed the images and the report which I agree with, it is negative for acute bony abnormality. Patient was reassured, likely all myofascial strain. At her request she was given an injection of muscle relaxer Norflex, she said before this after the Toradol she was feeling funny the nursesgave her something to eat or drink and she felt better like maybe her blood sugar was a little low. She is tolerating the Norflex well so I will give her aprescription for that to use as needed as well as some tramadol after we discussed possibilities will be to prescribe her to use as needed at home. Alsogiven a work note for Sunday. Radiography Diagnostic Testing: Clinical Impression(s) from Imaging Studies Thoracic Spine X-Ray 07/27/23 17:10 IMPRESSION: Degenerative changes. No acute osseous abnormalities. Electronically Signed: Adonis Santos DO at 17:41 EST , Thoracic Spine CT 07/27/23 17:31 IMPRESSION: No acute osseous abnormalities. Mild degenerative changes and spinal curvature as above. Electronically Signed: Adonis Santos DO at 18:07 EST , Discharge Plan Triage Chief Complaint: Back ED Provider: Cortes Robert Dx/Rx/DC Orders Clinical Impression: Acute thoracic myofascial strain Instructions: ED Thoracic Spine Strain Prescriptions: New tramadol 50 mg tablet 50 mg PO Q6H PRN (Reason: pain) 3 Days Qty: 12 0RF orphenadrine citrate 100 mg tablet extended release 100 mg PO Q12H PRN (Reason: muscle pain) Qty: 14 0RF No Action levothyroxine 112 mcg tablet 112 mcg PO DAILY Qty: 90 3RF Stand Alone Forms: ED Work / School Excuse Primary Care Provider: Edgar Kaiser Referrals: Edgar Kaiser MD [Primary Care Provider] - 1 Week if not improving Activity Restrictions/Additional Instructions: May take both prescriptions along with Tylenol and/or ibuprofen if desired/needed. Ice pack or heat to the affected area, whichever feels better is okay to try. Disposition Disposition: Home, Self Care What to do if you have Problems For any increased pain, shortness of breath, bleeding, nausea or vomiting, chestpain, or any unexpected problems, contact your Primary Care Provider. Call [facility] ([phone]) or report to the closest Emergency Room. Call 911 if necessary. 07/27/231838 <Electronically signed by Cortes Robert MD> Cosigner Signature (if applicable): CC: Dr. Edgar Kaiser MD ~ Signed [facility] Work Phone: 1(268) 289-557901-19-2023 NotePap Smear Specimen AdequacyJanuary 2022 2:34pmComment.Satisfactory for evaluation. No endocervical component is identified.[facility] A#[id number] County HospitalComment on above:Satisfactory for evaluation. No endocervical component is identified. 08-17-2022 NotePap Smear Specimen AdequacyJanuary 2022 3:34pmComment. Satisfactory for evaluation. No endocervical component is identified.[facility] A#[id number] County HospitalComment on above:Satisfactory for evaluation. 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 [facility] Work Phone: Evaluation note* Diagnosis Onset Date Resolution Status Segmental and somatic dysfunction of cervical region acute Segmental and somatic dysfunction of lumbar region acute Segmental and somatic dysfunction of pelvic region acute Segmental and somatic dysfunction of thoracic region acute Segmental and somatic dysfunction of cervical region acute Segmental and somatic dysfunction of lumbar region acute Segmental and somatic dysfunction of pelvic region acute Segmental and somatic dysfunction of thoracic region acute Back pain noneactive Segmental and somatic dysfunction of cervical region acute Segmental and somatic dysfunction of lumbar region acute Segmental and somatic dysfunction of pelvic region acute Segmental and somatic dysfunction of thoracic region acute Back pain noneactive Encounter for routine gynecological examination noneactive [facility] Work Phone: Evaluation note* Diagnosis Onset Date Resolution Status Encounter for routine gynecological examination noneactive [facility] Work Phone: Evaluation note* Diagnosis Onset Date Resolution Status 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 [facility] Work Phone: Evaluation noteNo assessment information available [facility] Work Phone: Evaluation note* Diagnosis Onset Date Resolution Status Back pain acute Segmental and somatic dysfunction of cervical region acute Segmental and somatic dysfunction of thoracic region acute Thoracic neuritis acute Back pain acute Segmental and somatic dysfunction of cervical region acute Segmental and somatic dysfunction of thoracic region acute Thoracic neuritis acute Back pain acute Segmental and somatic dysfunction of cervical region acute Segmental and somatic dysfunction of thoracic region acute Thoracic neuritis acute [facility] Work Phone: Evaluation note* Diagnosis Onset Date Resolution Status Back pain acute Segmental and somatic dysfunction of cervical region acute Segmental and somatic dysfunction of thoracic region acute Thoracic neuritis acute Back pain acute Segmental and somatic dysfunction of cervical region acute Segmental and somatic dysfunction of thoracic region acute Thoracic neuritis acute Back pain acute Segmental and somatic dysfunction of cervical region acute Segmental and somatic dysfunction of thoracic region acute Thoracic neuritis acute Encounter for routine gynecological examination noneactive [facility] Work Phone: Evaluation note* Diagnosis Onset Date Resolution Status Back pain acute Segmental and somatic dysfunction of cervical region acute Segmental and somatic dysfunction of thoracic region acute Thoracic neuritis acute Back pain acute Segmental and somatic dysfunction of cervical region acute Segmental and somatic dysfunction of thoracic region acute Thoracic neuritis acute Encounter for routine gynecological examination noneactive Back pain acute Segmental and somatic dysfunction of cervical region acute Segmental and somatic dysfunction of thoracic region acute Thoracic neuritis acute [facility] Work Phone: Evaluation note* Diagnosis Onset Date Resolution Status Admit Date Amenorrhea acute January 01, 2025 8:25am 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 thyroiditis chronic January 01, 2025 8 :25am [facility] Work Phone: Evaluation note* Diagnosis ADHD (attention deficit hyperactivity disorder), combined type- Primary Attention deficit disorder with hyperactivity Fatigue, unspecified type Medication management Encounter for long-term (current) use of other medications Hypothyroidism, acquired Unspecified hypothyroidism Depression, unspecified depression type Secondary amenorrhea Absence of menstruation [facility] in this [facility] Dis[facility] Additional Instructions May take both prescriptions along with Tylenol and/or ibuprofen if desired/needed. Ice pack or heat to the affected area, whichever feels better is okay to try.[facility] Work Phone: Reason for referral (narrative)No reason for referral information availableWOhio State [facility]ing [facility] Work Phone: Chief Complaint and Reason for Visit Chief Complaint COVID ANTIBODY- vaginal cyst, offered early appt 1 week f/u COVID ANTIBODY- Reason for Visit Vulvar abscess Vulvar abscess Chief Complaint vaginal cyst, offere d early appt 1 week f/u COVID ANTIBODY- 1 Y FU Reason for Visit Vulvar abscess Vulvar abscess Hypothyroidism due to Zoey's thyroiditis Chief Complaint COVID ANTIBODY- 1 Y FU COVID ANTIBODY- Reason for Visit Hypothyroidism due t o Zoey's thyroiditis Chief Complaint REEVAL MID/LBP Back pain Back pain 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 Visit Segmental and somati c dysfunction of cervical region Segmental and somatic dysfunction of lumbar region Segmental and somatic dysfunction of pelvic region Segmental and somatic dysfunction of thoracic region Segmental and somatic dysfunction of cervical region Segmental and somatic dysfunction of lumbar region Segmental and somatic dysfunction of pelvic region Segmental and somatic dysfunction of thoracic region Back pain Segmental and somatic dysfunction of cervical region Segmental and somatic dysfunction of lumbar region Segmental and somatic dysfunction of pelvic region Segmental and somatic dysfunction of thoracic region Back pain Encounter for routine gynecological examination Chief Complaint 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 Reason for Visit Encounter for routin e gynecological examination Chief Complaint 1 Y FU Reason for Visit Autoimmune urticaria Hypothyroidism due to Zoey's thyroiditis Chief Complaint REEVAL Back pain Back pain FALL Reason for Visit Back pain Segmental and somatic dysfunction of cervical region Segmental and somatic dysfunction of thoracic region Thoracic neuritis Back pain Segmental and somatic dysfunction of cervical region Segmental and somatic dysfunction of thoracic region Thoracic neuritis Back pain Segmental and somatic dysfunction of cervical region Segmental and somatic dysfunction of thoracic region Thoracic neuritis Chief Complaint REEVAL Back pain Back pain 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 Reason for Visit Back pain Segmental and somatic dysfunction of cervical region Segmental and somatic dysfunction of thoracic region Thoracic neuritis Back pain Segmental and somatic dysfunction of cervical region Segmental and somatic dysfunction of thoracic region Thoracic neuritis Back pain Segmental and somatic dysfunction of cervical region Segmental and somatic dysfunction of thoracic region Thoracic neuritis Encounter for routine gynecological examination Chief Complaint Back pain Back pain 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 Back pain E-ORDER Reason for Visit Back pain Segmental and somatic dysfunction of cervical region Segmental and somatic dysfunction of thoracic region Thoracic neuritis Back pain Segmental and somatic dysfunction of cervical region Segmental and somatic dysfunction of thoracic region Thoracic neuritis Encounter for routine gynecological examination Back pain Segmental and somatic dysfunction of cervical region Segmental and somatic dysfunction of thoracic region Thoracic neuritis Chief Complaint Admit Date REEVAL August 20, 2024 8 :25am 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, 2024 1 :28pm EORDERS December 05, 2024 1:56pm Reason for Visit Admit Date Neck pain August 20, 2024 8 :25am Segmental and somatic dysfunction of cer vical region August 20, 2024 8:25am Segmental and somatic dysfunction of lum bar region August 20, 2024 8:25am Segmental and somatic dysfunction of tho racic region August 20, 2024 8:25am Encounter for routine gynecological exam ination September 01, 2024 1:28pm Chief Complaint Admit Date EORDERS December 05, 2024 1:56pm 1 Y FU January 01, 2025 8:25a m Reason for Visit Admit Date Amenorrhea January 01, 2025 8:25a m Hypothyroidism due to Zoey's thyroi ditis January 01, 2025 8:25am Chief Complaint Admit Date EORDERS December 05, 2024 1:56pm 1 Y FU January 01, 2025 8:25a m SCREENING January 07, 2025 2:34 pm Reason for Visit Admit Date Amenorrhea January 01, 2025 8:25a m Malaise and fatigue January 01, 2025 8:25a m Snoring January 01, 2025 8:25a m Hypothyroidism due to Zoey's thyroi ditis January 01, 2025 8:25am Family History No Family History Records Found Relationship Condition Age at Onset Recorded Date/T angel luis Not Specified Disorder of adrenal gland Unknown Malignant neoplasm Unknown Disorder of thyroid Unknown Cerebrovascular accident (CVA) Unknown mother [place]'s disease Unknown Osteoporosis Unknown Hypertension Unknown father Hypertension Unknown grandfather Malignant neoplasm of colon Unknown Advance Directives No Advanced Directives Records Found Advance Directive Response Recorded Date/ Time Living Will No October 22, 2017 11:50am Power of [employer] Chair No October 22 11:50am Advance Directive Response Recorded Date/ Time Living Will No October 22, 2017 10:50am Power of [employer] Chair No October 22 10:50am Advance Directive Response Recorded Date/ Time Living Will No July 27 023 6:46pm Power of [employer] Chair No July 27, 2023 6:46pm Advance Directive Response Recorded Date/ Time Living Will No July 27 7:46pm Power of [employer] Arts [employer] Human[employer] Chair No July 27, 2023 7:46pm Advance Directive Response Recorded Date/ Time Living Will No July 27 7:46pm Do you have a Healthcare Power of Liberal Arts And Humanities Chair? 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 Kaitlin Vang DO Attending Provider Activ e Team Status: Inactive Member Role Status Dates Edgar Kaiser MD Primary Care Provider, Referring Provider Active Dr. Dayana Virk DC Attending Provider Active Team Status: Inactive Member Role Status Dates Edgar Kaiser MD Primary Care Provider Active Dr. Kaitlin Vang DO Attending Provider Activ e Team Status: Active Member Role Status Dates No Primary Care Physician Family Provider Active Dr. Edgar Kaiser MD Primary Care Provider Active Team Status: Inactive Member Role Status Dates Edgar MAURO MD Primary Care Provider, Referr ing Provider Active Dr. Kaitlin Vang DO Attending Provider Activ e Team Status: Inactive Member Role Status Dates Dr. Kaitlin Vang DO Attending Provider, Refe rring Provider Active Dr. Edgar Kaiser MD Primary Care Provider Active Team Status: Inactive Member Role Status Dates Edgar MAURO MD Primary Care Provider Active Dr. Kaitlin Vang DO Attending Provider Activ e Team Status: Inactive Member Role Status Dates Edgar MAURO MD Referring Provider Active Dr. Parmjit Kaiser MD Attending Provider Active Dr. Edgar Kaiser MD Primary Care Provider Active Team Status: Inactive Member Role Status Dates Dr. Edgar Kaiser MD Primary Care Provider Active Dr. Parmjit Kaiser MD Attending Provider Active Team Status: Active Member Role Status Dates Dr. Edgar Kaiser MD Primary Care Provider Active Dr. Carlitos Hernandez MD Attending Provider Active Team Status: Inactive Member Role Status Dates Dr. Edgar Kaiser MD Primary Care Provider Active Dr. Parmjit Kaiser MD Attending Provider, Referring Provi suzan Active Team Status: Inactive Member Role Status Dates Dr. Edgar Kaiser MD Primary Care Provider Active Dr. Carlitos Hernandez MD Attending Provider Active Team Status: Inactive Member Role Status Dates Dr. Edgar Kaiser MD Primary Care Provider, Refer ring Provider Active Dr. Dayana Virk DC Attending Provider Active Team Status: Inactive Member Role Status Dates Dr. Edgar Kaiser MD Primary Care Provider Active Dr. Cortes Robert MD Referring Provider, Emergency Provider Active Team Status: Inactive Member Role Status Dates Edgar MAURO MD Referring Provider Active Dr. Kaitlin Vang DO Attending Provider Activ e Dr. Edgar Kaiser MD Primary Care Provider Active Team Status: Inactive Member Role Status Dates Dr. Edgar Kaiser MD Primary Care Provider Active Dr. Cortes Robert MD Attending Provid er, Referring Provider, Emergency Provider Active Team Status: Inactive Member Role Status Dates Dr. Edgar Kaiser MD Primary Care Provider Active Dr. Kaitlin Vang DO Attending Provider, Refe rring Provider Active Team Status: Inactive Member Role Status Dates Dr. Edgar Kaiser MD Primary Care Provider Active Start: August 20, 2024 End: August 20, 2024 Dr. Edgar Kaiser MD Referring Provider Active Start: August 20, 2024 End: August 20, 2024 Dr. Dayana Virk DC Attending Provider Active S tart: August 20, 2024 End: August 20, 2024 Team Status: Inactive Member Role Status Dates Dr. Edgar Kaiser MD Primary Care Provider Active Start: September 01, 2024 End: September 01, 2024 Dr. Edgar Kaiser MD Referring Provider Active Start: September 01, 2024 End: September 01, 2024 Dr. Kaitlin Vang DO Attending Provider Activ e Start: September 01, 2024 End: September 01, 2024 Team Status: Inactive Member Role Status Dates Dr. Edgar Kaiser MD Primary Care Provider Active Start: December 05, 2024 End: December 05, 2024 Dr. Kaitlin Vang DO Attending Provider Activ e Start: December 05, 2024 End: December 05, 2024 Dr. Kaitlin Vang DO Referring Provider Activ e Start: December 05, 2024 End: December 05, 2024 Team Status: Active Member Role Status Dates Dr. Edgar Kaiser MD Primary Care Provider Active Team Status: Inactive Member Role Status Dates Dr. Edgar Kaiser MD Primary Care Provider Active Start: January 01, 2025 End: January 01, 2025 Dr. Edgar Kaiser MD Referring Provider Active Start: January 01, 2025 End: January 01, 2025 Dr. Parmjit Kaiser MD Attending Provider Active Sta rt: January 01, 2025 End: January 01, 2025 Team Status: Inactive Member Role Status Dates Dr. Edgar Kaiser MD Primary Care Provider Active Start: January 01, 2025 End: January 01, 2025 Dr. Parmjit Kaiser MD Attending Provider Active Sta rt: January 01, 2025 End: January 01, 2025 Dr. Parmjit Kaiser MD Referring Provider Active Sta rt: January 01, 2025 End: January 01, 2025 Team Status: Active Member Role Status Dates Dr. Edgar Kaiser MD Primary Care Provider Active Start: January 07, 2025 Dr. Kaitlin Vang DO Attending Provider Activ e Start: January 07, 2025 Dr. 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 Edgar Kaiser MD Primary Care Provider Active Start: January 07, 2025 End: January 07, 2025 Dr. Kaitlin Vang DO Attending Provider Activ e Start: January 07, 2025 End: January 07, 2025 Dr. Kaitlin Vang DO Referring Provider Activ e Start: January 07, 2025 End: January 07, 2025 Source Comments (unrecognize d section and content) In the event this informatio n is protected by the Federal Confidentiality of Alcohol and Drug Abuse Patient Records regulations: The Federal rules restrict any use of the information to criminally investigate or prosecute any alcohol or drug abuse patient.[facility] Reason for Visit (unrecogniz ed section and content) Reason Comments Establish Care INFORMATION SOURCE (unrecogn ized section and content) DATE CREATED AUTHOR 01/18/2025 [facility] DATE CREATED AUTHOR 'S OFE BOWSER 02/08/2025 [facility] FOR RECORDS PERTAINING TO PATIENTS WHO ARE OR HAVE BEEN ENROLLED IN A CHEMICAL DEPENDENCY/SUBSTANCEABUSE PROGRAM, SOME INFORMATION MAY BE OMITTED. This clinical summary was aggregated from multiple sources. Caution should be exercised in using it in the provision of clinical care. This summary normalizes information from multiple sources, and as a consequence, information in this document may materially change the coding, format and clinical context of patient data. In addition, data may be omitted in some cases. CLINICAL DECISIONS SHOULD BE BASED ON THE PRIMARY CLINICAL RECORDS. [employer] provides no warranty or guarantee of the accuracy or completeness of information in this document.
== END | disposition home or self-care (01) ==
LOC: SL 10:28
PROVIDERS: PCP Internal Medicine; Referring Provider Registered Nurse; Visit Provider Registered Nurse
DX: G47.10 Hypersomnia, unspecified (principal); G47.30 Sleep apnea, unspecified
CPT/HCPCS: 95806

== ENCOUNTER → 2025-04-02 | Outpatient (CLI) | payer BC, SELFPAY | END | disposition home or self-care (01) | LOC: SL 19:55 | PROVIDERS: PCP Internal Medicine; Referring Provider Registered Nurse; Visit Provider Registered Nurse | DX: R53.83 Other fatigue (principal) | CPT/HCPCS: 95810 ==

== ENCOUNTER → 2025-07-21 | Outpatient (CLI) | payer BC, SELFPAY ==
[2025-07-21 16:54] LABS: Follicle Stimulating Hormone 58.2 mIU/mL
== END | disposition home or self-care (01) ==
LOC: LAB 14:27
PROVIDERS: PCP Internal Medicine; Referring Provider Obstetrics & Gynecology; Visit Provider Obstetrics & Gynecology
DX: R61 Generalized hyperhidrosis (principal)
CPT/HCPCS: 36415; 82670; 83001; 83002